=== PATIENT | male | born 1950 | race Caucasian/White ===

== ENCOUNTER → 2017-04-26 | Outpatient (CLI) | payer OTHER ==
[~2017-04-26] MED LIST: ACET-1311 PO; CEPH500C2 PO; DOXY1TAB6 PO; FERR1TAB13 PO; FOLI1TAB7 PO; LRS20 PO; MELA1TAB5 PO; MISCCAP80 PO; NUTR-7 PO; PANT40TA PO; TEMA7.5C11 PO; THIA100T11 PO; [UNRECOGNIZED DRUG - CODE] TOP
== END ==
LOC: C.LABUPNIT 11:56
PROVIDERS: ATTEND Nurse Practitioner Family
DX: T87.9 Unspecified complications of amputation stump (principal); Y83.5 Amputation of limb(s) as the cause of abnormal reaction of the patient, or of later complication, without mention of misadventure at the time of the procedure

== ENCOUNTER 2017-04-27 09:49 | Inpatient (IN) | payer OTHER ==
[~2017-04-27] VITALS: Ht 167.6 cm; Wt 73.8 kg
[~2017-04-27 09:49] MED LIST changes: -ACET-1311 PO; -DOXY1TAB6 PO
[2017-04-27] MEDS ORDERED: PIPERACILLIN/TAZOBACTAM 4.5 GM/100ML D5W IV STA (10:45)
[2017-04-27] MEDS ORDERED: VANCOMYCIN 1GM/270ML NSS IV STA (10:45)
[2017-04-27] MEDS ORDERED: ACET-1311 PO (10:52)
[2017-04-27] MEDS ORDERED: DOXY1TAB6 PO (10:52)
[2017-04-27 11:08] LABS: BASO % 1.3 %; BASO ABS # 0.12 K/uL (0-0.2); EOS % 7.2 %; HEMATOCRIT 33.2 % (42-52); IG% 1.7 %; LYMPH % 15.2 %; LYMPH ABS # 1.44 K/uL (1.2-3.4); MEAN CELL VOLUME 85.1 fL (80-100); MEAN CORPUSCULAR HEMOGLOBIN 25.6 pg (25-34); MEAN CORPUSCULAR HGB CONC 30.1 g/dl (32-36); MEAN PLATELET VOLUME 9.7 fL (7.4-10.4); MONO % 9.8 %; NEUT % 64.8 %; PLATELET COUNT 422 K/uL (130-400); WHITE BLOOD COUNT 9.49 K/uL (4.8-10.8)
[2017-04-27 11:21] LABS: ALT/SGPT 18 U/L (12-78); AST/SGOT 12 U/L (15-37); BLOOD UREA NITROGEN 21 mg/dl (7-18); BUN/CREATININE RATIO 33.5 (10-20); CALCIUM 9.4 mg/dl (8.5-10.1); CARBON DIOXIDE 27 mmol/L (21-32); CHLORIDE 104 mmol/L (98-107); CREATININE 0.62 mg/dl (0.60-1.40); GLUCOSE 97 mg/dl (70-99); MAGNESIUM 1.7 mg/dl (1.8-2.4); POTASSIUM 4.1 mmol/L (3.5-5.1); SODIUM 137 mmol/L (136-145)
[2017-04-27 11:24] LABS: ALB/GLOB RATIO 0.4 (0.9-2); ALKALINE PHOSPHATASE 135 U/L (45-117)
--- NOTE | 2017-04-27 11:29 | DIAGNOSTIC IMAGING REPORT ---
SINGLE VIEW CHEST CLINICAL HISTORY: Infection. Clinical concern for pneumonia. FINDINGS: An AP, portable, upright chest radiograph is obtained. No prior studies are available for comparison at the time of dictation. The examination is degraded by portable technique and patient rotation. The heart is top normal for projection and there is atherosclerotic calcification of the thoracic aorta. The pulmonary vasculature is noncongested. Nonspecific interstitial thickening is noted. No airspace consolidation, large pleural effusion, or pneumothorax is seen. The skeletal structures are osteopenic. Advanced arthritic change is noted in the right shoulder. IMPRESSION: No acute cardiopulmonary abnormality. Electronically signed by: Leoncio Woo M.D. 04/27/2017 11:28 AM Dictated Date/Time: 04/27/2017 11:27 AM
--- NOTE | 2017-04-27 11:39 | EMERGENCY ROOM VISIT NOTE ---
History Report prepared by Iona: Sary Mclaughlin Under the Supervision of: Dr. Leoncio Martínez M.D. First contact with patient: 10:37 Chief Complaint: WOUND INFECTION Stated Complaint: LEG PAIN Nursing Triage Summary: Pt brought BLS from [facility], quadriplegic, had Left BKA in 1984. Pt c/o infection to L leg stump, states that it started as a blister in March, worse x 1 week, area is necrotic with yellow drainage. Pt denies fever or chills. Currently on two antibiotics. Pt was treated at [place] for sepsis in March and moved to [facility] this past . Pt also reports open wound to L hip/thigh History of Present Illness The patient is a 66 year old male who presents to the Emergency Room with complaints of a worsening wound infection for the past week. The patient has a history of spina bifida and a left BKA. His amputation was done in 1984. Over a week ago he developed some infection to the stump. He is currently at [facility] for rehabilitation after being in the hospital in [place] for sepsis a few weeks ago. The patient was started on Keflex and doxycycline two days ago for his wound infection. He states that his leg is achy, but denies much pain. He denies any fevers. Source of History: patient Onset: 1 week ago Position: leg (left) Quality: ache Timing: worsening Associated Symptoms: No fevers Review of Systems See HPI for pertinent positives & negatives. A total of 10 systems reviewed and were otherwise negative. Past Medical & Surgical Medical Problems: (1) Spina bifida Surgical Problems: (1) Hx of BKA Family History No pertinent history stated. Social History Smoking Status: Never Smoker Housing Status: halfway Occupation Status: disabled Current/Historical Medications Scheduled Acetic Acid (Acetic Acid 0.25%), 1 APPLN TOP BID Baclofen (Baclofen), 1 TAB PO TID Cephalexin Monohydrate (Keflex), 500 MG PO QID Doxycycline Hyclate (Doxycycline Hyclate), 1 TAB PO BID Ferrous Sulfate (Kp Ferrous Sulfate), 1 TAB PO BID Folic Acid (Folvite), 1 MG PO DAILY Nutritional Supplements (Boost), 1 BOX PO TID Pantoprazole (Protonix), 40 MG PO DAILY Probiotic Product (Probiotic), 1 CAP PO BID Temazepam (Restoril), 7.5 MG PO HS Thiamine Hcl (Vitamin B-1), 0.5 TAB PO DAILY Scheduled PRN Acetaminophen (Tylenol), 650 MG PO for Mild Pain Melatonin (Kp Melatonin), 1 TAB PO HS PRN for Sleep Allergies Coded Allergies: Latex1 -Allergic Contact Dermititis (Unverified Allergy, Unknown, ., 04/27) Physical Exam Vital Signs Date Time Temp Pulse Resp B/P (MAP) Pulse Ox O2 Delivery O2 Flow Rate FiO2 04/27/17 13:09 88 18 122/80 97 Room Air 04/27/17 12:53 99 Room Air 04/27/17 11:30 79 18 112/67 99 Room Air 04/27/17 09:59 36.6 85 20 114/69 Room Air Physical Exam GENERAL: Patient is in no acute distress. HEENT: No acute trauma, normocephalic atraumatic, mucous membranes moist, no nasal congestion, no scleral icterus. NECK: No stridor, no adenopathy, no meningismus, trachea is midline. LUNGS: Clear to auscultation bilaterally, no wheeze, no rhonchi, breath sounds equal. HEART: Without murmurs gallops or rubs, regular rate and rhythm. ABDOMEN: Soft, nontender, bowel sounds positive, no hernias, no peritonitis. Gordon catheter in place. EXTREMITIES: His left leg has been amputated at the mid tib/fib area and the stump appears acutely infected. There is drainage, erythema, warmth, and a few areas of necrosis. NEUROLOGIC: Awake, alert, oriented x 3, quadriplegia noted. SKIN: No rash, no jaundice, no diaphoresis. Medical Decision & Procedures ER Provider Diagnostic Interpretation: Radiology results as stated below per my review and radiologist interpretation: L TIBIA/FIBULA 2 VIEWS ROUTINE CLINICAL HISTORY: poss osteo. Left lower leg swelling. COMPARISON STUDY: None. FINDINGS: The patient is status post below the knee amputation. Mild focal thickening and periosteal reaction at the amputated distal left tibia and fibula. However, no cortical destruction to suggest osteomyelitis at this time. There is diffuse soft tissue swelling. No radiopaque foreign bodies. The bones are osteopenic. No fracture or dislocation within the left knee. Moderate to severe osteoarthritis within the left knee. IMPRESSION: Status post below the knee amputation. No radiographic evidence for osteomyelitis at this time. Diffuse soft tissue swelling. Electronically signed by: Torin Mane M.D. 04/27/2017 11:43 AM Dictated Date/Time: 04/27/2017 11:40 AM SINGLE VIEW CHEST CLINICAL HISTORY: Infection. Clinical concern for pneumonia. FINDINGS: An AP, portable, upright chest radiograph is obtained. No prior studies are available for comparison at the time of dictation. The examination is degraded by portable technique and patient rotation. The heart is top normal for projection and there is atherosclerotic calcification of the thoracic aorta. The pulmonary vasculature is noncongested. Nonspecific interstitial thickening is noted. No airspace consolidation, large pleural effusion, or pneumothorax is seen. The skeletal structures are osteopenic. Advanced arthritic change is noted in the right shoulder. IMPRESSION: No acute cardiopulmonary abnormality. Electronically signed by: Leoncio Woo M.D. 04/27/2017 11:28 AM Dictated Date/Time: 04/27/2017 11:27 AM Laboratory Results 04/27/17 10:40 Red Blood Count 3.90, Mean Corpuscular Volume 85.1, Mean Corpuscular Hemoglobin 25.6, Mean Corpuscular Hemoglobin Concent 30.1, Mean Platelet Volume 9.7, Neutrophils (%) (Auto) 64.8, Lymphocytes (%) (Auto) 15.2, Monocytes (%) (Auto) 9.8, Eosinophils (%) (Auto) 7.2, Basophils (%) (Auto) 1.3, Neutrophils # (Auto) 6.16, Lymphocytes # (Auto) 1.44, Monocytes # (Auto) 0.93, Eosinophils # (Auto) 0.68, Basophils # (Auto) 0.12 04/27/17 10:40 Test 04/27/17 10:40 04/27/17 11:18 04/27/17 11:50 White Blood Count 9.49 K/uL (4.8-10.8) Red Blood Count 3.90 M/uL (4.7-6.1) Hemoglobin 10.0 g/dL (14.0-18.0) Hematocrit 33.2 % (42-52) Mean Corpuscular Volume 85.1 fL (80-100) Mean Corpuscular Hemoglobin 25.6 pg (25-34) Mean Corpuscular Hemoglobin Concent 30.1 g/dl (32-36) Platelet Count 422 K/uL (130-400) Mean Platelet Volume 9.7 fL (7.4-10.4) Neutrophils (%) (Auto) 64.8 % Lymphocytes (%) (Auto) 15.2 % Monocytes (%) (Auto) 9.8 % Eosinophils (%) (Auto) 7.2 % Basophils (%) (Auto) 1.3 % Neutrophils # (Auto) 6.16 K/uL (1.4-6.5) Lymphocytes # (Auto) 1.44 K/uL (1.2-3.4) Monocytes # (Auto) 0.93 K/uL (0.11-0.59) Eosinophils # (Auto) 0.68 K/uL (0-0.5) Basophils # (Auto) 0.12 K/uL (0-0.2) RDW Standard Deviation 61.6 fL (36.4-46.3) RDW Coefficient of Variation 20.8 % (11.5-14.5) Immature Granulocyte % (Auto) 1.7 % Immature Granulocyte # (Auto) 0.16 K/uL (0.00-0.02) Hypersegmented Polys 1+ Anisocytosis PRESENT Anion Gap 6.0 mmol/L (3-11) Estimated GFR () 119.8 Estimated GFR (Non- 103.4 BUN/Creatinine Ratio 33.5 (10-20) Calcium Level 9.4 mg/dl (8.5-10.1) Magnesium Level 1.7 mg/dl (1.8-2.4) Total Bilirubin 0.2 mg/dl (0.2-1) Aspartate Amino Transf (AST/SGOT) 12 U/L (15-37) Alanine Aminotransferase (ALT/SGPT) 18 U/L (12-78) Alkaline Phosphatase 135 U/L (45-117) Total Protein 9.1 gm/dl (6.4-8.2) Albumin 2.4 gm/dl (3.4-5.0) Globulin 6.7 gm/dl (2.5-4.0) Albumin/Globulin Ratio 0.4 (0.9-2) Lactic Acid Level 1.4 mmol/L (0.4-2.0) Urine Color YELLOW Urine Appearance CLOUDY (CLEAR) Urine pH 6.0 (4.5-7.5) Urine Specific Mcd[place]al 1.025 (1.000-1.030) Urine Protein 1+ (NEG) Urine Glucose (UA) NEG (NEG) Urine Ketones NEG (NEG) Urine Occult Blood 1+ (NEG) Urine Nitrite POS (NEG) Urine Bilirubin NEG (NEG) Urine Urobilinogen NEG (NEG) Urine Leukocyte Esterase LARGE (NEG) Urine WBC (Auto) >30 /hpf (0-5) Urine RBC (Auto) 5-10 /hpf (0-4) Urine Hyaline Casts (Auto) 1-5 /lpf (0-5) Urine Epithelial Cells (Auto) 10-20 /lpf (0-5) Urine Bacteria (Auto) 1+ (NEG) Laboratory results reviewed by me. Medications Administered Medications (Trade) Dose Ordered Sig/Stephen Route Start Time Stop Time Status Last Admin Dose Admin Piperacillin Sod/ Tazobactam Sod (Zosyn Iv) 4.5 gm NOW STAT IV 04/27/17 10:45 04/27/17 10:49 DC 04/27/17 11:26 4.5 GM Vancomycin HCl (Vancomycin 1gm/ 270ml Nss) 1 gm NOW STAT IV 04/27/17 10:45 04/27/17 10:49 DC 04/27/17 12:13 1 GM ED Course 1037: The patient was evaluated in room B11B. A complete history and physical exam was performed. 1045: Vancomycin HCl 1 gm IV, Zosyn 4.5 gm IV 1200: I reassessed the patient at this time. He is feeling better and resting comfortably. I discussed the results and treatment plan with the patient. I answered all pertaining questions that he had. He expressed understanding and verbalized agreement. 1211: I spoke with Dr. Gaytan. We discussed the patients case. The patient will be evaluated by the [facility] for further management. Medical Decision Differential diagnoses includes osteomyelitis, cellulitis, failed outpatient treatment, sepsis, bacteremia, dehydration, UTI. There is no leukocytosis. A mild anemia was noted. Magnesium somewhat low, no renal failure, no hepatitis. Urinalysis does suggest infection versus contamination from his Gordon catheter. A urine culture is pending. Blood cultures are pending. A culture of the drainage from the left leg cellulitis is pending. Left tib-fib films do not show evidence for osteomyelitis. Lactic acid level was not elevated making severe sepsis less likely. The patient received IV vancomycin and IV Zosyn. Given the worsening of his cellulitis despite oral antibiotics, given his quadriplegia, I do think a hospital stay is warranted. I spoke to the patient and case management. The on -call hospitalist was consulted. Medication Reconcilliation Current Medication List: was personally reviewed by me Blood Pressure Screening Patient's blood pressure: Normal blood pressure Consults Time Called: 1202 Consulting Physician: Dr. Gaytan Returned Call: [address] Gaytan. We discussed the patients case. The patient will be evaluated by the [facility] for further management. Impression Primary Impression: Left leg cellulitis Additional Impression: Failure of outpatient treatment Scribe Attestation The scribe's documentation has been prepared under my direction and personally reviewed by me in its entirety. I confirm that the note above accurately reflects all work, treatment, procedures, and medical decision making performed by me. Departure Information Dispostion Being Evaluated By Hospitalist Referrals Rai López (PCP) Patient Instructions My [facility] Problem Qualifiers
--- NOTE | 2017-04-27 11:44 | DIAGNOSTIC IMAGING REPORT ---
L TIBIA/FIBULA 2 VIEWS ROUTINE CLINICAL HISTORY: poss osteo. Left lower leg swelling. COMPARISON STUDY: None. FINDINGS: The patient is status post below the knee amputation. Mild focal thickening and periosteal reaction at the amputated distal left tibia and fibula. However, no cortical destruction to suggest osteomyelitis at this time. There is diffuse soft tissue swelling. No radiopaque foreign bodies. The bones are osteopenic. No fracture or dislocation within the left knee. Moderate to severe osteoarthritis within the left knee. IMPRESSION: Status post below the knee amputation. No radiographic evidence for osteomyelitis at this time. Diffuse soft tissue swelling. Electronically signed by: Torin Mane M.D. 04/27/2017 11:43 AM Dictated Date/Time: 04/27/2017 11:40 AM
[2017-04-27 11:48] LABS: ANISOCYTOSIS PRESENT; COMPLETE YES; HYPERSEGMENTED POLYS 1+
[2017-04-27 12:12] LABS: URINE APPEARANCE CLOUDY (CLEAR); URINE BILIRUBIN NEG (NEG); URINE COLOR YELLOW; URINE NITRITE POS (NEG); URINE SPECIFIC GRAVITY 1.025 (1.000-1.030); UROBILINOGEN NEG (NEG)
[2017-04-27 12:13] LABS: MANUAL MICROSCOPIC REQUIRED? NO; REVIEW REQ? NO
--- NOTE | 2017-04-27 12:43 | History and Physical ---
History & Physical Date & Time of Service: Apr 27, 2017 at 12:43 Chief Complaint: Leg Pain Primary Care Physician: No Doctor, Assigned History of Present Illness Source: patient, hospital records The patient is a 66-year-old male with history of spina bifida and left BKA performed in 1984, who developed skin breakdown while at [facility], for which he was placed on Keflex and doxycycline, and due to worsening presents emergency department for assessment. He denies any recent trauma. He has recently been in the [facility] [place] for 2 weeks to do urosepsis, and was then transferred to [facility] for rehabilitation. Past Medical/Surgical History Medical Problems: (1) Spina bifida Status: Chronic Surgical Problems: (1) Hx of BKA Status: Chronic Family History Noncontributory Social History Smoking Status: Never Smoker Smokeless Tobacco Use: No Alcohol Use: none Drug Use: none Occupational Status: disabled Immunizations History of Influenza Vaccine: Unknown History of Tetanus Vaccine?: Unknown History of Pneumococcal: Unknown History of Hepatitis B Vaccine: Unknown Multi-Drug Resistant Organisms History of MDRO: No Allergies Coded Allergies: Latex1 -Allergic Contact Dermititis (Unverified Allergy, Unknown, ., 04/27) Home Medications Scheduled Acetic Acid (Acetic Acid 0.25%), 1 APPLN TOP BID Baclofen (Baclofen), 1 TAB PO TID Cephalexin Monohydrate (Keflex), 500 MG PO QID Doxycycline Hyclate (Doxycycline Hyclate), 1 TAB PO BID Ferrous Sulfate (Kp Ferrous Sulfate), 1 TAB PO BID Folic Acid (Folvite), 1 MG PO DAILY Nutritional Supplements (Boost), 1 BOX PO TID Pantoprazole (Protonix), 40 MG PO DAILY Probiotic Product (Probiotic), 1 CAP PO BID Temazepam (Restoril), 7.5 MG PO HS Thiamine Hcl (Vitamin B-1), 0.5 TAB PO DAILY Scheduled PRN Acetaminophen (Tylenol), 650 MG PO for Mild Pain Melatonin (Kp Melatonin), 1 TAB PO HS PRN for Sleep Review of Systems The patient denies chest pain, palpitations, shortness of breath, cough, vision change, hearing change, sore throat, fevers, chills, sweats, weight change, fatigue, nausea, vomiting, diarrhea or constipation, abdominal pain, pelvic pain, blood in urine or stool, dysuria, urinary frequency or urgency, lightheadedness , dizziness, headache, memory loss, rash, abnormal bruising or bleeding, imbalance, focal or generalized weakness, numbness or tingling in arms or legs, generalized arthralgias or myalgias, back or neck pain, or night sweats. The review of systems is otherwise negative other than for that already noted above, and at least 10 systems have been reviewed. Physical Exam Vital Signs Date Time Temp Pulse Resp B/P (MAP) Pulse Ox O2 Delivery O2 Flow Rate FiO2 04/27/17 11:30 79 18 112/67 99 Room Air 04/27/17 09:59 36.6 85 20 114/69 Room Air The patient is awake, well-developed and adequately nourished, alert and oriented 3, normocephalic and atraumatic, lying in bed and in no acute distress. HEENT--PERRL, EOMI, mucous membranes and oropharynx normal. Neck--supple, no JVD or bruits, thyroid normal, trachea midline, no adenopathy. Heart--normal S1 and S2, no extra beats, no murmurs, rubs or gallops. Lungs--clear bilaterally with good air movement, no respiratory distress, no accessory muscle use. Abdomen--normal bowel sounds and soft, nontender and nondistended, no hernias or masses, no organomegaly. Extremities--no cyanosis, clubbing or edema. Left BKA Dermatologic--left BKA stump with peripheral scabbing, with several open draining wounds. Neurologic--cranial nerves II through XII grossly intact, motor and sensory examination normal. Rheumatologic--normal range of motion, nontender, muscles and joints. Psychiatric--normal affect. Diagnostics Laboratory Results Results Past 24 Hours Test 04/27/17 10:40 04/27/17 11:18 04/27/17 11:50 Range/Units White Blood Count 9.49 4.8-10.8 K/uL Red Blood Count 3.90 4.7-6.1 M/uL Hemoglobin 10.0 14.0-18.0 g/dL Hematocrit 33.2 42-52 % Mean Corpuscular Volume 85.1 80-100 fL Mean Corpuscular Hemoglobin 25.6 25-34 pg Mean Corpuscular Hemoglobin Concent 30.1 32-36 g/dl Platelet Count 422 130-400 K/uL Mean Platelet Volume 9.7 7.4-10.4 fL Neutrophils (%) (Auto) 64.8 % Lymphocytes (%) (Auto) 15.2 % Monocytes (%) (Auto) 9.8 % Eosinophils (%) (Auto) 7.2 % Basophils (%) (Auto) 1.3 % Neutrophils # (Auto) 6.16 1.4-6.5 K/uL Lymphocytes # (Auto) 1.44 1.2-3.4 K/uL Monocytes # (Auto) 0.93 0.11-0.59 K/uL Eosinophils # (Auto) 0.68 0-0.5 K/uL Basophils # (Auto) 0.12 0-0.2 K/uL RDW Standard Deviation 61.6 36.4-46.3 fL RDW Coefficient of Variation 20.8 11.5-14.5 % Immature Granulocyte % (Auto) 1.7 % Immature Granulocyte # (Auto) 0.16 0.00-0.02 K/uL Hypersegmented Polys 1+ Anisocytosis PRESENT Sodium Level 137 136-145 mmol/L Potassium Level 4.1 3.5-5.1 mmol/L Chloride Level 104 98-107 mmol/L Carbon Dioxide Level 27 21-32 mmol/L Anion Gap 6.0 3-11 mmol/L Blood Urea Nitrogen 21 7-18 mg/dl Creatinine 0.62 0.60-1.40 mg/dl Estimated GFR () 119.8 Estimated GFR (Non- 103.4 BUN/Creatinine Ratio 33.5 10-20 Random Glucose 97 70-99 mg/dl Calcium Level 9.4 8.5-10.1 mg/dl Magnesium Level 1.7 1.8-2.4 mg/dl Total Bilirubin 0.2 0.2-1 mg/dl Aspartate Amino Transf (AST/SGOT) 12 15-37 U/L Alanine Aminotransferase (ALT/SGPT) 18 12-78 U/L Alkaline Phosphatase 135 45-117 U/L Total Protein 9.1 6.4-8.2 gm/dl Albumin 2.4 3.4-5.0 gm/dl Globulin 6.7 2.5-4.0 gm/dl Albumin/Globulin Ratio 0.4 0.9-2 Lactic Acid Level 1.4 0.4-2.0 mmol/L Urine Color YELLOW Urine Appearance CLOUDY CLEAR Urine pH 6.0 4.5-7.5 Urine Specific Sax[place] 1.025 1.000-1.030 Urine Protein 1+ NEG Urine Glucose (UA) NEG NEG Urine Ketones NEG NEG Urine Occult Blood 1+ NEG Urine Nitrite POS NEG Urine Bilirubin NEG NEG Urine Urobilinogen NEG NEG Urine Leukocyte Esterase LARGE NEG Urine WBC (Auto) >30 0-5 /hpf Urine RBC (Auto) 5-10 0-4 /hpf Urine Hyaline Casts (Auto) 1-5 0-5 /lpf Urine Epithelial Cells (Auto) 10-20 0-5 /lpf Urine Bacteria (Auto) 1+ NEG Microbiology Results 04/27/17 Blood Culture, Received Pending 04/27/17 Blood Culture, Received Pending 04/27/17 Urine Culture, Received Pending 04/27/17 Gram Stain, Received Pending 04/27/17 Wound Culture, Received Pending Diagnostic Radiology Patient Name: ALBINO ROSA Unit Number: [id number] Dictated: 04/27/171139 Transcribed: 04/27/171139 [employer] Printed Date/Time: [~ rep prt dt]/[~ rep prt tm] [~ rep ct labl] - [~ rep ct ivnm] [facility] [place] [address] Dictated: 04/27/171139 Transcribed: 04/27/171139 PA Printed Date/Time: [~ rep prt dt]/[~ rep prt tm] [~ rep ct labl] - [~ rep ct ivnm] L TIBIA/FIBULA 2 VIEWS ROUTINE CLINICAL HISTORY: poss osteo. Left lower leg swelling. COMPARISON STUDY: None. FINDINGS: The patient is status post below the knee amputation. Mild focal thickening and periosteal reaction at the amputated distal left tibia and fibula. However, no cortical destruction to suggest osteomyelitis at this time. There is diffuse soft tissue swelling. No radiopaque foreign bodies. The bones are osteopenic. No fracture or dislocation within the left knee. Moderate to severe osteoarthritis within the left knee. IMPRESSION: Status post below the knee amputation. No radiographic evidence for osteomyelitis at this time. Diffuse soft tissue swelling. Electronically signed by: Torin Mane M.D. 04/27/2017 11:43 AM Dictated Date/Time: 04/27/2017 11:40 AM The status of this report is Signed. Draft = Not yet reviewed or approved by Radiologist. Signed = Reviewed and approved by Radiologist. <AttendingPhy></AttendingPhy> <FamilyPhy>No Doctor, Assigned</FamilyPhy> < PrimaryPhy>No Doctor, Assigned</PrimaryPhy> <UnitNumber>[id number]</UnitNumber> <VisitNumber>[id number]</VisitNumber> <PatientName>ALBINO ROSA</PatientName > <DateOfBirth>1950</DateOfBirth> <Location>[facility]</Location> <ServiceDate> 04/27/17</ServiceDate> <MNE>ESINDI</MNE> <OrderingPhy>Leoncio Martínez M.D.</ OrderingPhy> <OrderingPhyMNE>f rep ord dr cordero</OrderingPhyMNE> <DictatingPhyMNE> f rep dict dr cordero</DictatingPhyMNE> <CCListMNE>f rep ct mne</CCListMNE> < AdmittingPhyMNE>f pt admit dr cordero</AdmittingPhyMNE> <AttendingPhyMNE>f pt attend dr cordero</AttendingPhyMNE> <ConsultingPhyMNE>f pt consult dr cordero</ConsultingPhyMNE> <FamilyPhyMNE>f pt fam dr cordero</FamilyPhyMNE> <OtherPhyMNE>f pt other dr cordero</OtherPhyMNE> < PrimaryPhyMNE>f pt prim care dr cordero</PrimaryPhyMNE> <ReferringPhyMNE>f pt referring dr cordero</ReferringPhyMNE> Patient Name: ALBINO ROSA Unit Number: [id number] Dictated: 04/27/171126 Transcribed: 04/27/171126 EV Printed Date/Time: [~ rep prt dt]/[~ rep prt tm] [~ rep ct labl] - [~ rep ct ivnm] [facility] Radiology Department [place] [id number] Dictated: 04/27/171126 Transcribed: 04/27/171126 EV Printed Date/Time: [~ rep prt dt]/[~ rep prt tm] [~ rep ct labl] - [~ rep ct ivnm] [~ rep ct add3]] SINGLE VIEW CHEST CLINICAL HISTORY: Infection. Clinical concern for pneumonia. FINDINGS: An AP, portable, upright chest radiograph is obtained. No prior studies are available for comparison at the time of dictation. The examination is degraded by portable technique and patient rotation. The heart is top normal for projection and there is atherosclerotic calcification of the thoracic aorta. The pulmonary vasculature is noncongested. Nonspecific interstitial thickening is noted. No airspace consolidation, large pleural effusion, or pneumothorax is seen. The skeletal structures are osteopenic. Advanced arthritic change is noted in the right shoulder. IMPRESSION: No acute cardiopulmonary abnormality. Electronically signed by: Leoncio Woo M.D. 04/27/2017 11:28 AM Dictated Date/Time: 04/27/2017 11:27 AM The status of this report is Signed. Draft = Not yet reviewed or approved by Radiologist. Signed = Reviewed and approved by Radiologist. <AttendingPhy></AttendingPhy> <FamilyPhy>No Doctor, Assigned</FamilyPhy> < PrimaryPhy>No Doctor, Assigned</PrimaryPhy> <UnitNumber>[id number]</UnitNumber> <VisitNumber>[id number]</VisitNumber> <PatientName>MOEALBINO</PatientName > <DateOfBirth>1950</DateOfBirth> <Location>C.ED[facility]</Location> <ServiceDate> 04/27/17</ServiceDate> <MNE>ESINDI</MNE> <OrderingPhy>Leoncio Martínez M.D.</ OrderingPhy> <OrderingPhyMNE>f rep ord dr cordero</OrderingPhyMNE> <DictatingPhyMNE> f rep dict dr cordero</DictatingPhyMNE> <CCListMNE>f rep ct mateoe</CCListMNE> < AdmittingPhyMNE>f pt admit dr cordero</AdmittingPhyMNE> <AttendingPhyMNE>f pt attend dr cordero</AttendingPhyMNE> <ConsultingPhyMNE>f pt consult dr cordero</ConsultingPhyMNE> <FamilyPhyMNE>f pt fam dr cordero</FamilyPhyMNE> <OtherPhyMNE>f pt other dr cordero</OtherPhyMNE> < PrimaryPhyMNE>f pt prim care dr cordero</PrimaryPhyMNE> <ReferringPhyMNE>f pt referring dr cordero</ReferringPhyMNE> Impression Assessment and Plan Left BKA/lower extremity cellulitis with open wounds-- Admitted to the medical surgical floor. Vancomycin IV and Zosyn IV. Of note, UTI on April 02 had Escherichia coli resistant to ampicillin and quinolones, and group B strep pansensitive. UTI on March 22 had group B streptococcus pansensitive. Order three-phase limited bone scan to assess for possible osteomyelitis. Spina bifida-- Continue baclofen one by mouth 3 times a day. GERD-- Continue pantoprazole 40 mg by mouth daily. Insomnia-- Continue Restoril 7.5 mg by mouth at bedtime. Nutraceuticals continue ferrous sulfate, folic acid, boost, probiotics and vitamin B1. Level of Care Med/Surg Advanced Directives Existing Advance Directive: No Existing Living Will: No Existing Power of Inter Com Installer: No Resuscitation Status FULL RESUSCITATION VTE Prophylaxis VTE Risk Assessment Done? Y/N: Yes Risk Level: Moderate
[2017-04-27] MEDS ORDERED: ONDANSETRON INJ 2 MG/ML 2 ML VIAL IV PRN (12:45)
[2017-04-27] MEDS ORDERED: VANCOMYCIN INJ 1,000 MG in SODIUM CHLORIDE 0.9% 250ML 250 ML IV STA (12:45)
[2017-04-27] MEDS ORDERED: ACETAMINOPHEN IV 100 ML IV PRN (12:45)
[2017-04-27 12:53] VITALS: O2SAT 99; Ht 167.6 cm; Wt 73.8 kg
[2017-04-27] MEDS ORDERED: NON-FORMULARY MEDICATION (Melatonin (Kp Melatonin) 1 TAB) PO PRN (13:00)
[2017-04-27] MEDS ORDERED: ACETAMINOPHEN 325 MG TAB PO PRN (13:00)
[2017-04-27 13:45] VITALS: BP 126/77; PULSE 82; TEMP 36.5; O2SAT 97
[2017-04-27] MEDS ORDERED: VANCOMYCIN CONSULT ACTIVE PRN (14:00)
[2017-04-27] MEDS ORDERED: BOOST VANILLA PO SCH ×2 (14:00)
[2017-04-27] MEDS ORDERED: PIPERACILL/TAZOBAC CONSULT ACTIVE PRN (14:00)
[2017-04-27] MEDS ORDERED: PIPERACILL/TAZOBAC IV 3.375 GM in DEXTROSE 5% 100ML 100 ML IV SCH (14:00)
--- NOTE | 2017-04-27 15:11 | Pharmacy Progress Note ---
Pharmacy Abx Dose Short Note Date of Service Apr 27, 2017. Assessment & Plan Pt is a 66yo presents from [facility] with cellulitis. 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 He had a hospital admission in [place], roughly two weeks ago. There he was treated for a UTI (that grew E.Coli resistant to Amp & Quinolones) . Unsure if renal fxn is at baseline; nonetheless, Pt population p'kinetics: T1/ 2=6.7hrs, ke=.103, Vd=0.7. Wound Cx, BCx2, UC all drawn and pending. UA looks dirty with positive nitrites (possibly indicative of gram(-) pathogens). Pt also has a h/o Spina bifida and BKA. Vanco: * Vanco 1000mg (13.5mg/kg) x1 given in ED * Will initiate Vanco 1250mg (~17mg/kg) q8 at 1800, will start maintenance dose earlier than usual do to small loading dose given * Vanco trough ordered for 04/29/17 @0130 prior to the 5th maintenance dose. * Goal trough until c/s's result: 15-20mcg/mL Zosyn: * Received Zosyn 4.5g x1 30 min infsn * Set to receive EI Zosyn 3.375g q8 at 1600, appropriate for eCrCl>20cc/min and clinical status Pharmacy will continue to follow and will adjust dose/frequency as necessary. Thank you.
[2017-04-27] MEDS: PIPERACILL/TAZOBAC IV 3.375 GM in DEXTROSE 5% 100ML IV SCH (16:15)
[2017-04-27] MEDS: BACLOFEN TAB 20 MG TAB PO SCH ×2 (16:16→20:48)
[2017-04-27] MEDS: LACTOBACILLUS ACIDOPHILUS (FLORANEX) TAB PO SCH (16:18)
[2017-04-27] MEDS: FERROUS SULFATE 325 MG TAB PO SCH (16:20)
[2017-04-27] MEDS: BOOST VANILLA PO SCH ×2 (17:00)
[2017-04-27] MEDS: VANCOMYCIN INJ 1,250 MG in SODIUM CHLORIDE 0.9% 250ML 250 ML IV SCH (17:54)
[2017-04-27] MEDS: TEMAZEPAM 7.5 MG CAP PO SCH (20:53)
[2017-04-28] MEDS: PIPERACILL/TAZOBAC IV 3.375 GM in DEXTROSE 5% 100ML IV SCH ×3 (00:04→15:15)
[2017-04-28 00:19] VITALS: BP 110/66; PULSE 59; TEMP 37; O2SAT 99
[2017-04-28] MEDS: VANCOMYCIN INJ 1,250 MG in SODIUM CHLORIDE 0.9% 250ML 250 ML IV SCH ×3 (02:32→17:39)
[2017-04-28 07:24] LABS: BASO % 1.1 %; BASO ABS # 0.11 K/uL (0-0.2); EOS % 8.3 %; HEMATOCRIT 30.4 % (42-52); IG% 1.8 %; LYMPH % 13.6 %; LYMPH ABS # 1.41 K/uL (1.2-3.4); MEAN CORPUSCULAR HEMOGLOBIN 26.2 pg (25-34); MEAN CORPUSCULAR HGB CONC 31.3 g/dl (32-36); MEAN PLATELET VOLUME 9.5 fL (7.4-10.4); MONO % 10.6 %; NEUT % 64.6 %; PLATELET COUNT 381 K/uL (130-400); RED BLOOD COUNT 3.62 M/uL (4.7-6.1); WHITE BLOOD COUNT 10.34 K/uL (4.8-10.8)
[2017-04-28 07:55] LABS: BUN/CREATININE RATIO 25.5 (10-20); CALCIUM 9.8 mg/dl (8.5-10.1); CREATININE 0.78 mg/dl (0.60-1.40); MAGNESIUM 1.8 mg/dl (1.8-2.4); POTASSIUM 3.9 mmol/L (3.5-5.1)
[2017-04-28 07:59] VITALS: O2SAT 99
[2017-04-28] MEDS: BOOST VANILLA PO SCH ×6 (08:00→15:15)
[2017-04-28 08:01] VITALS: BP 119/79; PULSE 75; TEMP 36.5; O2SAT 98
[2017-04-28 08:04] LABS: ANISOCYTOSIS PRESENT; COMPLETE YES; HYPOCHROMIA PRESENT
[2017-04-28] MEDS: PANTOprazole SOD 40 MG TAB PO SCH (08:56)
--- NOTE | 2017-04-28 09:02 | DIAGNOSTIC IMAGING REPORT ---
ADDENDUM Delayed sequence of the right lower extremity was submitted. No abnormal radiotracer uptake seen at the distal stump of the tibia to suggest osteomyelitis. Mild radiotracer uptake at the knee may be due to degenerative change. Electronically signed by: Torin Mane M.D. 04/28/2017 2:46 PM Dictated Date/Time: 04/28/2017 2:45 PM ORIGINAL REPORT BONE SCAN 3 PHASE LIMITED HISTORY: LEFT BKA LOWER EXTREMITY INFECTION TECHNIQUE: Immediately following the intravenous administration of 25.8 mCi of technetium 99 M MDP, the blood flow and blood pole sequences were obtained. The study was canceled by the ordering physician following the initial sequences. Therefore, the 3 hour delayed bone phase was not obtained. COMPARISON STUDY: Left tibia/fibula 04/27/2017. FINDINGS: Diffuse soft tissue uptake within the left distal lower extremity at the stump on both the blood flow and blood pool sequences. Evaluation for osteomyelitis is nondiagnostic due to the lack of a delayed bone phase. IMPRESSION: Diffuse soft tissue uptake within the left distal lower extremity at the stump on both the blood flow and blood pool sequences consistent with soft tissue infection/cellulitis. Evaluation for osteomyelitis is nondiagnostic due to the lack of a delayed bone phase. Electronically signed by: Torin Mane M.D. 04/28/2017 9:01 AM Dictated Date/Time: 04/28/2017 8:56 AM
[2017-04-28] MEDS: FERROUS SULFATE 325 MG TAB PO SCH ×2 (09:03→15:15)
[2017-04-28] MEDS: LACTOBACILLUS ACIDOPHILUS (FLORANEX) TAB PO SCH ×3 (09:05→15:16)
[2017-04-28] MEDS: BACLOFEN TAB 20 MG TAB PO SCH ×3 (09:07→20:36)
[2017-04-28] MEDS: THIAMINE HCL 50 MG TAB PO SCH (09:08)
--- NOTE | 2017-04-28 09:52 | Clinical Documentation Query ---
CLINICAL DOCUMENTATION QUERY Query #1/2 66-y/o male who presents with open wounds with infection to left BKA site. Per WOCN the open wound are described as full thickness [id number] that are edematous and erythematous with drainage that are not related to pressure. In your clinical opinion is this patient being managed for: (x ) Necrotizing fasciitis ( ) Not Agree ( ) Other explanation of clinical findings (Please Explain) ( ) Unable to determine (Please Define) ( ) Need to Discuss The medical record reflects the following clinical findings, treatment, and risk factors. Clinical Indicators: As above. Treatment: WOCN consult, IV Vancomycin, IV Zosyn, Risk Factors: Age, wound resistant to healing, hx of failed treatment on a multitude of IV antibiotics. Query #2/2 The H&P only notes skin breakdown and not location and etiology of patient's other skin issues not related to left BKA site. In your clinical opinion is this patient being managed for: ( x ) Deep tissue injury to left posterior thigh POA (x ) Fungal infection to right buttocks and bilateral thighs POA ( ) Not Agree ( ) Other explanation of clinical findings (Please Explain) ( ) Unable to determine (Please Define) ( ) Need to Discuss The medical record reflects the following clinical findings, treatment, and risk factors. Clinical Indicators: WOCN assessment: Wound Assessment Label Left Amputation Site Present on Admission Yes Stage Full Thickness no Structu Length 13.0 cm Width 19.0 cm Depth 0.2 cm % Eschar (Black) 51-75% % Slough (Yellow) 1-25% Michelle-impairment Edematous Erythema Dressing Status Applied Dressing Type Non-Adhesive Foam Hydrofiber With Silver Drainage Amount +1 - Scant= 10% Saturated Drainage Odor +1 - Mild Irrigant Solution Type Saline (NSS) Wound Assessment Label Left Posterior THIGH Present on Admission Yes Stage Deep Tissue Injury Length 3.0 cm Dressing Status Applied Dressing Type Non-Adhesive Foam Wound Assessment Label Left Right buttocks and thighs Present on Admission Yes Wound Type Fungal Length 38.0 cm Width 18.0 cm Eschar None % Eschar (Black) None % Slough (Yellow) None % Granulated (Red) 26-50% Structure Exposed None Wound Base Color Red Michelle-impairment Normal Skin Impairment Description scrotun, rectumm , buttock cleft has scattered superficial open areas Dressing Status Applied Treatment Plan antifungal barrier cream Frequency of Dressing Change Daily Offloading Waffleboots Consults/Notifications Comment requested surgical consult Patient Tolerated Procedure Well Yes Bed Documentation AccuMax Galen/[facility] Treatment: WOCN consult, IV Vancomycin, IV Zosyn, q2hr repositioning, [place] bed, Prn dressing changes, decubiti precautions, Gordon cather Risk Factors: Age, inability to ambulate or reposition on own, self-care is limited. Please clarify and document your clinical opinion in the progress notes and discharge summary. Terms such as "probable", "suspected", "likely", "questionable", "possible", or "still to be ruled out" are acceptable. IF IN AGREEMENT, YOU MUST DOCUMENT ABOVE DIAGNOSTIC STATEMENT IN DAILY PROGRESS NOTES AND DISCHARGE SUMMARY. This document is not part of the patient's record. Thank You, Eliud Crabtree RN [phone]
[2017-04-28 11:09] VITALS: BP 120/62; PULSE 74; TEMP 36.5; O2SAT 98
--- NOTE | 2017-04-28 11:29 | Hospitalist Progress Note ---
Hospitalist Progress Note Date of Service Apr 28, 2017. (Kalpana Patel CRNP) Subjective Pt evaluation today including: conversation w/ patient, physical exam, chart review, lab review, review of inpatient medication list Voiding: washburn catheter in place Constitutional: No fever, No chills Respiratory: No shortness of breath Cardiovascular: No chest pain Abdomen: No pain, No nausea, No vomiting, No diarrhea All Other Systems: Reviewed and Negative (Kalpana Patel CRNP) Medications Medications (Trade) Dose Ordered Sig/Stephen Route Start Time Stop Time Status Last Admin Dose Admin Baclofen (Lioresal Tab) 20 mg TID PO 04/27/17 14:00 05/27/17 13:59 04/28/17 09:07 20 MG Folic Acid (Folvite Tab) 1 mg DAILY PO 04/28/17 08:00 05/28/17 08:59 04/28/17 09:06 1 MG Enteral Nutritional Formula (Boost) 1 can TID PO 04/27/17 14:00 04/27/17 16:51 DC 04/27/17 16:16 1 CAN Pantoprazole Sodium (Protonix Tab) 40 mg DAILY PO 04/28/17 08:00 05/28/17 08:59 04/28/17 08:56 40 MG Temazepam (Restoril Cap) 7.5 mg HS PO 04/27/17 21:00 05/27/17 20:59 04/27/17 20:53 7.5 MG Thiamine HCl (Vitamin B-1 Tab) 50 mg DAILY PO 04/28/17 08:00 05/28/17 08:59 04/28/17 09:08 50 MG Ferrous Sulfate (Feosol Tab) 325 mg BIDM PO 04/27/17 17:00 05/27/17 17:59 04/28/17 09:03 325 MG Lactobacillus Acidophilus (Floranex Tab) 4 tab TIDM PO 04/27/17 17:00 05/27/17 17:59 04/28/17 09:05 4 TAB Piperacillin Sod/ Tazobactam Sod 3.375 gm/Dextrose 115 ml @ 28.75 mls/ hr Q8H IV 04/27/17 16:00 05/07/17 15:59 04/28/17 09:02 28.75 MLS/HR Vancomycin HCl 1250 mg/Sodium Chloride 275 ml @ 125 mls/hr Q8@0200,1000,1800 IV 04/27/17 18:00 05/07/17 17:59 04/28/17 09:33 125 MLS/HR Enteral Nutritional Formula (Boost) 1 can TIDM PO 04/27/17 17:00 05/27/17 16:59 04/28/17 09:56 1 CAN (Kalpana Patel CRNP) Objective Vital Signs Date Time Temp Pulse Resp B/P (MAP) Pulse Ox O2 Delivery O2 Flow Rate FiO2 04/28/17 11:09 36.5 74 16 120/62 (81) 98 04/28/17 08:01 36.5 75 16 119/79 (92) 98 04/28/17 07:59 99 Room Air 04/28/17 00:19 37.0 59 20 110/66 (81) 99 Room Air 04/28/17 00:00 Room Air 04/27/17 16:00 Room Air 04/27/17 13:45 36.5 82 20 126/77 (93) 97 Room Air 04/27/17 13:09 88 18 122/80 97 Room Air 04/27/17 12:53 99 Room Air 04/27/17 11:30 79 18 112/67 99 Room Air (Kalpana Patel CRNP) Physical Exam Notes: General: no distress Eyes: normal inspection, PERLL Respiratory: chest non tender, clear to auscultation, normal breath sounds, no respiratory distress, no accessory muscle use Cardiac: regular rate and rhythm, no rub or gallop, no murmur, no edema, no jvd GI/: active bowel sounds, no abd pain or tenderness, soft, non distended Extremities: normal range of motion, normal strength, non tender Neuro/Psych: alert and oriented x 3, normal mood and affect Skin: normal color, dry, left bka stump erythematous with dusky/dark coloration and yellow drainage. (Kalpana Patel CRNP) Laboratory Results Last 24 Hours Test 04/27/17 11:50 04/28/17 06:42 Urine Color YELLOW Urine Appearance CLOUDY Urine pH 6.0 Urine Specific [place] 1.025 Urine Protein 1+ Urine Glucose (UA) NEG Urine Ketones NEG Urine Occult Blood 1+ Urine Nitrite POS Urine Bilirubin NEG Urine Urobilinogen NEG Urine Leukocyte Esterase LARGE Urine WBC (Auto) >30 /hpf Urine RBC (Auto) 5-10 /hpf Urine Hyaline Casts (Auto) 1-5 /lpf Urine Epithelial Cells (Auto) 10-20 /lpf Urine Bacteria (Auto) 1+ White Blood Count 10.34 K/uL Red Blood Count 3.62 M/uL Hemoglobin 9.5 g/dL Hematocrit 30.4 % Mean Corpuscular Volume 84.0 fL Mean Corpuscular Hemoglobin 26.2 pg Mean Corpuscular Hemoglobin Concent 31.3 g/dl Platelet Count 381 K/uL Mean Platelet Volume 9.5 fL Neutrophils (%) (Auto) 64.6 % Lymphocytes (%) (Auto) 13.6 % Monocytes (%) (Auto) 10.6 % Eosinophils (%) (Auto) 8.3 % Basophils (%) (Auto) 1.1 % Neutrophils # (Auto) 6.67 K/uL Lymphocytes # (Auto) 1.41 K/uL Monocytes # (Auto) 1.10 K/uL Eosinophils # (Auto) 0.86 K/uL Basophils # (Auto) 0.11 K/uL RDW Standard Deviation 62.5 fL RDW Coefficient of Variation 20.7 % Immature Granulocyte % (Auto) 1.8 % Immature Granulocyte # (Auto) 0.19 K/uL Hypochromasia PRESENT Anisocytosis PRESENT Sodium Level 136 mmol/L Potassium Level 3.9 mmol/L Chloride Level 103 mmol/L Carbon Dioxide Level 27 mmol/L Anion Gap 6.0 mmol/L Blood Urea Nitrogen 20 mg/dl Creatinine 0.78 mg/dl Est Creatinine Clear Calc Drug Dose 84.1 ml/min Estimated GFR () 109.0 Estimated GFR (Non- 94.1 BUN/Creatinine Ratio 25.5 Random Glucose 79 mg/dl Calcium Level 9.8 mg/dl Magnesium Level 1.8 mg/dl (Kalpana Patel, JORDY) Assessment and Plan Mr. Ruvalcaba is a 66 y/o man here for Left BKA/lower extremity cellulitis with open wounds. Recent UTI on April 02 had Escherichia coli resistant to ampicillin and quinolones, and group B strep pansensitive. UTI on March 22 had group B streptococcus pansensitive. Left BKA cellulitis -Vancomycin IV and Zosyn IV. - three-phase limited bone scan to assess for possible osteomyelitis - none seen on imaging - Wound care consulted - recommend orthopedics consult Spina bifida-- Continue baclofen one by mouth 3 times a day. GERD-- Continue pantoprazole 40 mg by mouth daily. Insomnia-- Continue Restoril 7.5 mg by mouth at bedtime. Nutraceuticals continue ferrous sulfate, folic acid, boost, probiotics and vitamin B1. Resuscitation status - full code DVT prophylaxis - SCDs (Kalpana Patel ., JORDY) Attending Attestation: Pt seen/examined, chart reviewed, care plan d/w JORDY Patel. I agree w/ the ellis components of her documentation. Pt reports left BKA stump started "looking bad" about 1 week ago. There was the beginnings of skin breakdown when he was in [facility] a few weeks ago but not like it is currently. Follows w/ wound care center in [place]. Uses chronic washburn for neurogenic bladder. Reports had a doppler of left leg at [place] - "I never heard the results." Also reports having had iron infusion in [place] for anemia. VSS no fever gen - NAD heart - irregular lungs - CTA b/l abd - soft NT ND BS+ ext - right leg wnl, no edema, pulses 2+; left leg BKA; popliteal pulse on left 1+ skin - left leg BKA -- distal stump is grossly necrotic, skin is black; there is a serpiginous appearing ulceration that separates the necrotic tissue from healthy tissue/skin; there are at least 3 other ulcerations separate from the necrotic region; all ulcers are grossly weeping with mild odor I did not examine his wounds on the back or buttocks A/P: 1. left BKA stump infection - bone scan negative for osteomyelitis. He certainly will need debridement. I spoke directly with Dr. Grady- his team will consult in AM. Appreciate wound care team recs. Add MVI/Vit C/zinc for wound healing. Boost TID w/ meals. Cont zosyn + vanco. 2. moderate protein calorie malnutrition - boost, MVI, etc. 3. anemia of chronic disease - obtain records from [facility]. 4. complicated/washburn-catheter associated UTI - pseudomonas - continue current abx. 5. DVT proph - add heparin BID. Manoj Ivory MD (Manoj Ivory MD)
[2017-04-28 14:59] VITALS: BP 101/54; PULSE 66; TEMP 36.6; O2SAT 100
[2017-04-28] MEDS ORDERED: BOOST VANILLA PO SCH ×2 (17:30)
[2017-04-28] MEDS: TEMAZEPAM 7.5 MG CAP PO SCH (20:37)
[2017-04-28] MEDS: ZINC SULFATE 220 MG CAP PO SCH (22:10)
[2017-04-28] MEDS: ASCORBIC ACID 500 MG TAB PO SCH (22:10)
[2017-04-28 23:59] VITALS: BP 113/70; PULSE 56; TEMP 36.8; O2SAT 98
[2017-04-29] MEDS: PIPERACILL/TAZOBAC IV 3.375 GM in DEXTROSE 5% 100ML IV SCH ×2 (00:04→09:44)
[2017-04-29] MEDS ORDERED: VANCOMYCIN TROUGH ONE (01:30)
[2017-04-29] MEDS: VANCOMYCIN INJ 1,250 MG in SODIUM CHLORIDE 0.9% 250ML 250 ML IV SCH (02:37)
[2017-04-29 07:18] LABS: BASO % 1.6 %; BASO ABS # 0.14 K/uL (0-0.2); EOS % 6.2 %; HEMATOCRIT 30.5 % (42-52); IG% 1.6 %; LYMPH % 14.5 %; LYMPH ABS # 1.25 K/uL (1.2-3.4); MEAN CORPUSCULAR HEMOGLOBIN 25.6 pg (25-34); MEAN CORPUSCULAR HGB CONC 30.5 g/dl (32-36); MEAN PLATELET VOLUME 9.8 fL (7.4-10.4); MONO % 9.7 %; NEUT % 66.4 %; PLATELET COUNT 340 K/uL (130-400); RED BLOOD COUNT 3.63 M/uL (4.7-6.1); WHITE BLOOD COUNT 8.65 K/uL (4.8-10.8)
[2017-04-29 07:42] LABS: ANISOCYTOSIS PRESENT; COMPLETE YES; HYPERSEGMENTED POLYS 1+; HYPOCHROMIA PRESENT
[2017-04-29 07:55] LABS: BUN/CREATININE RATIO 27.2 (10-20); CALCIUM 9.1 mg/dl (8.5-10.1); CREATININE 0.72 mg/dl (0.60-1.40); MAGNESIUM 1.5 mg/dl (1.8-2.4); POTASSIUM 3.8 mmol/L (3.5-5.1)
--- NOTE | 2017-04-29 08:09 | Hospitalist Progress Note ---
Hospitalist Progress Note Date of Service Apr 29, 2017. Objective Vital Signs Date Time Temp Pulse Resp B/P (MAP) Pulse Ox O2 Delivery O2 Flow Rate FiO2 04/29/17 00:40 Room Air 04/28/17 23:59 36.8 56 18 113/70 (84) 98 Room Air 04/28/17 16:00 Room Air 04/28/17 14:59 36.6 66 18 101/54 (70) 100 Room Air 04/28/17 11:09 36.5 74 16 120/62 (81) 98 Laboratory Results Last 24 Hours Test 04/29/17 01:31 04/29/17 06:45 Vancomycin Level Trough 33.2 mcg/ml White Blood Count 8.65 K/uL Red Blood Count 3.63 M/uL Hemoglobin 9.3 g/dL Hematocrit 30.5 % Mean Corpuscular Volume 84.0 fL Mean Corpuscular Hemoglobin 25.6 pg Mean Corpuscular Hemoglobin Concent 30.5 g/dl Platelet Count 340 K/uL Mean Platelet Volume 9.8 fL Neutrophils (%) (Auto) 66.4 % Lymphocytes (%) (Auto) 14.5 % Monocytes (%) (Auto) 9.7 % Eosinophils (%) (Auto) 6.2 % Basophils (%) (Auto) 1.6 % Neutrophils # (Auto) 5.74 K/uL Lymphocytes # (Auto) 1.25 K/uL Monocytes # (Auto) 0.84 K/uL Eosinophils # (Auto) 0.54 K/uL Basophils # (Auto) 0.14 K/uL RDW Standard Deviation 63.4 fL RDW Coefficient of Variation 20.9 % Immature Granulocyte % (Auto) 1.6 % Immature Granulocyte # (Auto) 0.14 K/uL Hypersegmented Polys 1+ Hypochromasia PRESENT Anisocytosis PRESENT Sodium Level 139 mmol/L Potassium Level 3.8 mmol/L Chloride Level 107 mmol/L Carbon Dioxide Level 24 mmol/L Anion Gap 8.0 mmol/L Blood Urea Nitrogen 20 mg/dl Creatinine 0.72 mg/dl Est Creatinine Clear Calc Drug Dose 91.1 ml/min Estimated GFR () 112.7 Estimated GFR (Non- 97.2 BUN/Creatinine Ratio 27.2 Random Glucose 82 mg/dl Calcium Level 9.1 mg/dl Magnesium Level 1.5 mg/dl Assessment and Plan Mr. Ruvalcaba is a 66 y/o man here for Left BKA/lower extremity cellulitis with open wounds. Recent UTI on April 02 had Escherichia coli resistant to ampicillin and quinolones, and group B strep pansensitive. UTI on March 22 had group B streptococcus pansensitive. Left BKA cellulitis/necrotizing fasciitis, deep tissue injury to left posterior thigh -Vancomycin IV and Zosyn IV. - three-phase limited bone scan to assess for possible osteomyelitis - none seen on imaging - Wound care consulted - recommend orthopedics consult Spina bifida-- Continue baclofen one by mouth 3 times a day. GERD-- Continue pantoprazole 40 mg by mouth daily. Insomnia-- Continue Restoril 7.5 mg by mouth at bedtime. Nutraceuticals continue ferrous sulfate, folic acid, boost, probiotics and vitamin B1. Resuscitation status - full code DVT prophylaxis - SCDs
[2017-04-29 08:10] VITALS: BP 108/67; PULSE 65; TEMP 37; O2SAT 98
[2017-04-29] MEDS: FERROUS SULFATE 325 MG TAB PO SCH ×2 (09:44→16:54)
[2017-04-29] MEDS: CEROVITE ADV FORMULA TAB PO SCH (09:45)
[2017-04-29] MEDS: BACLOFEN TAB 20 MG TAB PO SCH ×3 (09:45→21:57)
[2017-04-29] MEDS: THIAMINE HCL 50 MG TAB PO SCH (09:45)
[2017-04-29] MEDS: LACTOBACILLUS ACIDOPHILUS (FLORANEX) TAB PO SCH ×3 (09:45→16:54)
[2017-04-29] MEDS: PANTOprazole SOD 40 MG TAB PO SCH (09:45)
[2017-04-29] MEDS: ASCORBIC ACID 500 MG TAB PO SCH ×2 (09:46→21:57)
[2017-04-29] MEDS: ZINC SULFATE 220 MG CAP PO SCH (09:46)
[2017-04-29 10:27] LABS: INR 1.1 (0.9-1.1); PROTHROMBIN TIME (PATIENT) 11.6 SECONDS (9.0-12.0)
--- NOTE | 2017-04-29 10:31 | Pharmacy Progress Note ---
Pharmacy Antibiotic Prog Note Date of Service Apr 29, 2017. Subjective The patient is currently receiving vancomycin 1250 mg IV every 8 hours. The patient is currently on day # 3 of vancomycin IV therapy. Objective Height (Feet): 5 Height (Inches): 6.00 Weight (Kilograms): 73.800 Lab Results (24hrs): Test 04/29/17 01:31 04/29/17 06:45 04/29/17 10:01 Vancomycin Level Trough 33.2 mcg/ml (SEE COMMENT) White Blood Count 8.65 K/uL (4.8-10.8) Red Blood Count 3.63 M/uL (4.7-6.1) Hemoglobin 9.3 g/dL (14.0-18.0) Hematocrit 30.5 % (42-52) Mean Corpuscular Volume 84.0 fL (80-100) Mean Corpuscular Hemoglobin 25.6 pg (25-34) Mean Corpuscular Hemoglobin Concent 30.5 g/dl (32-36) Platelet Count 340 K/uL (130-400) Mean Platelet Volume 9.8 fL (7.4-10.4) Neutrophils (%) (Auto) 66.4 % Lymphocytes (%) (Auto) 14.5 % Monocytes (%) (Auto) 9.7 % Eosinophils (%) (Auto) 6.2 % Basophils (%) (Auto) 1.6 % Neutrophils # (Auto) 5.74 K/uL (1.4-6.5) Lymphocytes # (Auto) 1.25 K/uL (1.2-3.4) Monocytes # (Auto) 0.84 K/uL (0.11-0.59) Eosinophils # (Auto) 0.54 K/uL (0-0.5) Basophils # (Auto) 0.14 K/uL (0-0.2) RDW Standard Deviation 63.4 fL (36.4-46.3) RDW Coefficient of Variation 20.9 % (11.5-14.5) Immature Granulocyte % (Auto) 1.6 % Immature Granulocyte # (Auto) 0.14 K/uL (0.00-0.02) Hypersegmented Polys 1+ Hypochromasia PRESENT Anisocytosis PRESENT Sodium Level 139 mmol/L (136-145) Potassium Level 3.8 mmol/L (3.5-5.1) Chloride Level 107 mmol/L (98-107) Carbon Dioxide Level 24 mmol/L (21-32) Anion Gap 8.0 mmol/L (3-11) Blood Urea Nitrogen 20 mg/dl (7-18) Creatinine 0.72 mg/dl (0.60-1.40) Est Creatinine Clear Calc Drug Dose 91.1 ml/min Estimated GFR () 112.7 Estimated GFR (Non- 97.2 BUN/Creatinine Ratio 27.2 (10-20) Random Glucose 82 mg/dl (70-99) Calcium Level 9.1 mg/dl (8.5-10.1) Magnesium Level 1.5 mg/dl (1.8-2.4) Assessment & Plan Assessment * 66 yo M with cellulitis/necrotizing fasciitis of LLE w skin breakdown. * Failed cephalexin/doxycycline as outpatient * Imaging to evaluate for osteomyelitis is nondiagnostic due to lack of a delayed bone phase (per radiologist report) * Pseudomonas (resistant to imipenem only) isolated in wound culture * On Zosyn, vancomycin which is appropriate for now * Renal function stable (based on SCr), however estimation of CrCL based on SCr may be error-prone 2nd spina bifida * Goal vancomycin trough 15-20 mcg/mL * Trough of 33.2 mcg/mL is significantly supratherapeutic. This is either due to aggressive initial dosing or due to patient deviating from population-based pharmacokinetic estimations (which is possible as the patient's baseline SCr may be affected by spina bifida) or a combination thereof * Difficult to estimate trend in vancomycin level. Will therefore discontinue ongoing vancomycin for now and order a random level for this evening. * If estimation of CrCL (based on SCr) is *not* affected by spina bifida, this will be drawn when level should be therapeutic * If estimation of CrCL (based on SCr) *is* affected by spina bifida, the level will be supratherapeutic Plan * Discontinue scheduled vancomycin for now * Random level today (04/29) @ 1800 Pharmacy will continue to follow and will adjust dose/frequency as necessary. Thank you
--- NOTE | 2017-04-29 11:01 | Hospitalist Progress Note ---
Hospitalist Progress Note Date of Service Apr 29, 2017. (Kalpana Patel CRNP) Subjective Pt evaluation today including: conversation w/ patient, physical exam, lab review, review of studies, review of inpatient medication list Voiding: washburn catheter in place Mr. Ruvalcaba is comfortable but feels week and feels aching in his leg stump. He otherwise has no complaints Constitutional: No fever, No chills Respiratory: No shortness of breath Cardiovascular: No chest pain Abdomen: No pain, No nausea, No vomiting, No diarrhea, No constipation Male : No dysuria All Other Systems: Reviewed and Negative (Kalpana Patel CRNP) Medications Medications (Trade) Dose Ordered Sig/Stephen Route Start Time Stop Time Status Last Admin Dose Admin Multivitamins/ Minerals (Multivitamin W/ Minerals Tab) 1 tab QAM PO 04/29/17 08:00 05/29/17 07:59 04/29/17 09:45 1 TAB Ascorbic Acid (Vitamin C Tab) 500 mg BID PO 04/28/17 20:00 05/28/17 19:59 04/29/17 09:46 500 MG Zinc Sulfate (Zinc Sulfate Cap) 220 mg QAM PO 04/28/17 17:30 05/12/17 17:29 04/29/17 09:46 220 MG (Kalpana Patel CRNP) Objective Vital Signs Date Time Temp Pulse Resp B/P (MAP) Pulse Ox O2 Delivery O2 Flow Rate FiO2 04/29/17 08:10 37.0 65 18 108/67 (81) 98 Room Air 04/29/17 00:40 Room Air 04/28/17 23:59 36.8 56 18 113/70 (84) 98 Room Air 04/28/17 16:00 Room Air 04/28/17 14:59 36.6 66 18 101/54 (70) 100 Room Air 04/28/17 11:09 36.5 74 16 120/62 (81) 98 (Kalpana Patel CRNP) Physical Exam Notes: General: no distress Eyes: normal inspection, PERLL Respiratory: chest non tender, clear to auscultation, normal breath sounds, no respiratory distress, no accessory muscle use Cardiac: regular rate and rhythm, no rub or gallop, no murmur, no edema, no jvd GI/: active bowel sounds, no abd pain or tenderness, soft, non distended Extremities: normal range of motion, generalized weakness, can feel or move lower extremities, non tender, left leg stump with dusky, necrotic tissue with yellow drainage and surrounding erythema Neuro/Psych: alert and oriented x 3, normal mood and affect Skin: normal color, dry (Kalpana Patel CRNP) Laboratory Results Last 24 Hours Test 04/29/17 01:31 04/29/17 06:45 04/29/17 10:01 Vancomycin Level Trough 33.2 mcg/ml White Blood Count 8.65 K/uL Red Blood Count 3.63 M/uL Hemoglobin 9.3 g/dL Hematocrit 30.5 % Mean Corpuscular Volume 84.0 fL Mean Corpuscular Hemoglobin 25.6 pg Mean Corpuscular Hemoglobin Concent 30.5 g/dl Platelet Count 340 K/uL Mean Platelet Volume 9.8 fL Neutrophils (%) (Auto) 66.4 % Lymphocytes (%) (Auto) 14.5 % Monocytes (%) (Auto) 9.7 % Eosinophils (%) (Auto) 6.2 % Basophils (%) (Auto) 1.6 % Neutrophils # (Auto) 5.74 K/uL Lymphocytes # (Auto) 1.25 K/uL Monocytes # (Auto) 0.84 K/uL Eosinophils # (Auto) 0.54 K/uL Basophils # (Auto) 0.14 K/uL RDW Standard Deviation 63.4 fL RDW Coefficient of Variation 20.9 % Immature Granulocyte % (Auto) 1.6 % Immature Granulocyte # (Auto) 0.14 K/uL Hypersegmented Polys 1+ Hypochromasia PRESENT Anisocytosis PRESENT Sodium Level 139 mmol/L Potassium Level 3.8 mmol/L Chloride Level 107 mmol/L Carbon Dioxide Level 24 mmol/L Anion Gap 8.0 mmol/L Blood Urea Nitrogen 20 mg/dl Creatinine 0.72 mg/dl Est Creatinine Clear Calc Drug Dose 91.1 ml/min Estimated GFR () 112.7 Estimated GFR (Non- 97.2 BUN/Creatinine Ratio 27.2 Random Glucose 82 mg/dl Calcium Level 9.1 mg/dl Magnesium Level 1.5 mg/dl Prothrombin Time 11.6 SECONDS Prothromb Time International Ratio 1.1 (Kalpana Patel CRNP) Assessment and Plan Mr. Ruvalcaba is a 66 y/o man here for Left BKA/lower extremity cellulitis with open wounds. Recent UTI on April 02 had Escherichia coli resistant to ampicillin and quinolones, and group B strep pansensitive. UTI on March 22 had group B streptococcus pansensitive. Left BKA cellulitis/necrotizing fasciitis, deep tissue injury to left posterior thigh - three-phase limited bone scan to assess for possible osteomyelitis - none seen on imaging - Wound care consulted - orthopedics consult - to OR tomorrow - wound culture and urine both grew out pseudomonas - abx narrowed to ciprofloxacin Hypomagnesemia - repleated Spina bifida-- Continue baclofen one by mouth 3 times a day. GERD-- Continue pantoprazole 40 mg by mouth daily. Insomnia-- Continue Restoril 7.5 mg by mouth at bedtime. Nutraceuticals continue ferrous sulfate, folic acid, boost, probiotics and vitamin B1. Resuscitation status - full code DVT prophylaxis - SCDs, heparin subq (Kalpana Patel ., JORDY) Attending Attestation: Pt seen/examined, chart reviewed, care plan d/w JORDY Patel. I agree w/ the ellis components of her documentation. No new issues overnight He anticipates surgery tomorrow on left BKA No cp, sob, abd pain VSS no fever gen - NAD heart - RRR, s1, s2 lungs - CTA b/l abd - soft NT ND BS+ ext - right leg wnl, no edema, pulses 2+; left leg BKA with dressings in place skin - I did not remove dressings today on left BKA stump; candidiasis in groin b/l A/P: 1. left BKA stump infection - appreciate ortho consultation. To OR tomorrow with Dr. Grady - either revision of BKA stump/debridement or perhaps even AKA. Agree with narrowing abx to cipro IV. 2. moderate protein calorie malnutrition - boost, MVI, etc. 3. anemia of chronic disease - obtained records from [facility] - baseline Hb about 9-10. Consider checking iron studies this admission. 4. complicated/washburn-catheter associated UTI - pseudomonas - cipro IV. 5. DVT proph - heparin BID. 6. paraplegic status - 2nd to spina bifida. 7. deep tissue injury to left posterior thigh - will examine such this weekend. Wound care following. 8. fungal infection to right buttocks and b/l groin - antifungals. 9. h/o PAD - records obtained from [facility] - had NORMAL arterial dopplers of both legs on 04/18/17. Manoj Ivory MD (Manoj Ivory MD)
[2017-04-29] MEDS: BOOST VANILLA PO SCH ×4 (11:55→16:54)
[2017-04-29] MEDS: MAGNESIUM SULFATE 1GM / D5W 1 GM in PREMIXED IN D5W 100 ML IV SCH ×3 (14:09→16:54)
[2017-04-29] MEDS: HEPARIN SOD 5000 UNIT/0.5 ML CARP SQ SCH ×2 (14:11→22:13)
[2017-04-29 15:36] VITALS: BP 112/63; PULSE 68; TEMP 36.6; O2SAT 97
--- NOTE | 2017-04-29 17:00 | Orthopedic Consultation ---
Orthopedic Consultation Date of Consultation: Apr 29, 2017. Attending Physician: Manoj Ivory MD Reason for Consultation: Infected left BKA stump History of Present Illness 66-year-old male with history of spina bifida who previously underwent left BKA at [facility] in 1984 for treatment of Charcot foot. He then admitted and [facility] about 2 weeks prior. He has been at [facility] most recently. He has been having increasing wound problems after developing an ulcer over the left BKA stump. Past Medical/Surgical History Medical Problems: (1) Failure of outpatient treatment Status: Acute (2) Left leg cellulitis Status: Acute Social History Smoking Status: Never Smoker Smokeless Tobacco Use: No Alcohol Use: none Drug Use: none Housing Status: [facility] Occupation Status: disabled Allergies Coded Allergies: Latex1 -Allergic Contact Dermititis (Unverified Allergy, Unknown, ., 04/27) Home Medications Scheduled Acetic Acid (Acetic Acid 0.25%), 1 APPLN TOP BID Baclofen (Baclofen), 1 TAB PO TID Cephalexin Monohydrate (Keflex), 500 MG PO QID Doxycycline Hyclate (Doxycycline Hyclate), 1 TAB PO BID Ferrous Sulfate (Kp Ferrous Sulfate), 1 TAB PO BID Folic Acid (Folvite), 1 MG PO DAILY Nutritional Supplements (Boost), 1 BOX PO TID Pantoprazole (Protonix), 40 MG PO DAILY Probiotic Product (Probiotic), 1 CAP PO BID Temazepam (Restoril), 7.5 MG PO HS Thiamine Hcl (Vitamin B-1), 0.5 TAB PO DAILY Scheduled PRN Acetaminophen (Tylenol), 650 MG PO for Mild Pain Melatonin (Kp Melatonin), 1 TAB PO HS PRN for Sleep Current Inpatient Medications Current Inpatient Medications Medications (Trade) Dose Ordered Sig/Stephen Route Start Time Stop Time Status Last Admin Dose Admin Acetaminophen 100 ml @ 400 mls/hr Q8H PRN IV 04/27/17 12:45 05/27/17 12:44 Ondansetron HCl (Zofran Inj) 4 mg Q6H PRN IV 04/27/17 12:45 05/27/17 12:44 Acetaminophen (Tylenol Tab) 650 mg Q6H PRN PO 04/27/17 13:00 05/27/17 12:59 Baclofen (Lioresal Tab) 20 mg TID PO 04/27/17 14:00 05/27/17 13:59 04/29/17 14:09 20 MG Folic Acid (Folvite Tab) 1 mg DAILY PO 04/28/17 08:00 05/28/17 08:59 04/29/17 09:45 1 MG Pantoprazole Sodium (Protonix Tab) 40 mg DAILY PO 04/28/17 08:00 05/28/17 08:59 04/29/17 09:45 40 MG Temazepam (Restoril Cap) 7.5 mg HS PO 04/27/17 21:00 05/27/17 20:59 04/28/17 20:37 7.5 MG Thiamine HCl (Vitamin B-1 Tab) 50 mg DAILY PO 04/28/17 08:00 05/28/17 08:59 04/29/17 09:45 50 MG Ferrous Sulfate (Feosol Tab) 325 mg BIDM PO 04/27/17 17:00 05/27/17 17:59 04/29/17 09:44 325 MG Lactobacillus Acidophilus (Floranex Tab) 4 tab TIDM PO 04/27/17 17:00 05/27/17 17:59 04/29/17 14:09 4 TAB Multivitamins/ Minerals (Multivitamin W/ Minerals Tab) 1 tab QAM PO 04/29/17 08:00 05/29/17 07:59 04/29/17 09:45 1 TAB Ascorbic Acid (Vitamin C Tab) 500 mg BID PO 04/28/17 20:00 05/28/17 19:59 04/29/17 09:46 500 MG Zinc Sulfate (Zinc Sulfate Cap) 220 mg QAM PO 04/28/17 17:30 05/12/17 17:29 04/29/17 09:46 220 MG Heparin Sodium (Porcine) (Heparin Sq 5000 Unit/0.5ml) 5,000 unit Q12 SQ 04/29/17 09:00 05/29/17 08:59 04/29/17 14:11 5,000 UNIT Enteral Nutritional Formula (Boost) 1 can TIDM PO 04/29/17 12:00 05/29/17 11:59 04/29/17 11:55 1 CAN Ciprofloxacin/ Dextrose 400 mg/ Prmx 200 ml @ 100 mls/hr Q12 IV 04/29/17 21:00 05/09/17 20:59 Physical Exam Date Time Temp Pulse Resp B/P (MAP) Pulse Ox O2 Delivery O2 Flow Rate FiO2 04/29/17 15:36 36.6 68 18 112/63 (79) 97 Room Air 04/29/17 11:01 Room Air 04/29/17 08:10 37.0 65 18 108/67 (81) 98 Room Air 04/29/17 00:40 Room Air 04/28/17 23:59 36.8 56 18 113/70 (84) 98 Room Air Left lower extremity: Status post BKA. There is numerous areas of black eschar with some mild surrounding erythema and yellow exudate. The region of eschar constituting the vast majority of distal and and posterior aspect of the BKA stump. General Appearance: no apparent distress Head: normocephalic Eyes: normal inspection Neck: supple Respiratory/Chest: chest non-tender Abdomen/GI: soft Laboratory Results Last 24 Hours Test 04/29/17 01:31 04/29/17 06:45 04/29/17 10:01 Vancomycin Level Trough 33.2 mcg/ml White Blood Count 8.65 K/uL Red Blood Count 3.63 M/uL Hemoglobin 9.3 g/dL Hematocrit 30.5 % Mean Corpuscular Volume 84.0 fL Mean Corpuscular Hemoglobin 25.6 pg Mean Corpuscular Hemoglobin Concent 30.5 g/dl Platelet Count 340 K/uL Mean Platelet Volume 9.8 fL Neutrophils (%) (Auto) 66.4 % Lymphocytes (%) (Auto) 14.5 % Monocytes (%) (Auto) 9.7 % Eosinophils (%) (Auto) 6.2 % Basophils (%) (Auto) 1.6 % Neutrophils # (Auto) 5.74 K/uL Lymphocytes # (Auto) 1.25 K/uL Monocytes # (Auto) 0.84 K/uL Eosinophils # (Auto) 0.54 K/uL Basophils # (Auto) 0.14 K/uL RDW Standard Deviation 63.4 fL RDW Coefficient of Variation 20.9 % Immature Granulocyte % (Auto) 1.6 % Immature Granulocyte # (Auto) 0.14 K/uL Hypersegmented Polys 1+ Hypochromasia PRESENT Anisocytosis PRESENT Sodium Level 139 mmol/L Potassium Level 3.8 mmol/L Chloride Level 107 mmol/L Carbon Dioxide Level 24 mmol/L Anion Gap 8.0 mmol/L Blood Urea Nitrogen 20 mg/dl Creatinine 0.72 mg/dl Est Creatinine Clear Calc Drug Dose 91.1 ml/min Estimated GFR () 112.7 Estimated GFR (Non- 97.2 BUN/Creatinine Ratio 27.2 Random Glucose 82 mg/dl Calcium Level 9.1 mg/dl Magnesium Level 1.5 mg/dl Prothrombin Time 11.6 SECONDS Prothromb Time International Ratio 1.1 Assessment & Plan Infected BKA stump Per report he apparently still has arterial flow to the distal stump. However he has a fair amount of eschar throughout the distal aspect and posteriorly. The plan is for Dr. umanzor performed a I&D of the stump tomorrow. I discussed with the patient that given the extensive nature of the wounds he may end up requiring an AKA that we will likely be determined based on the findings at the time surgery. We will make him nothing by mouth after midnight.
[2017-04-29] MEDS: TEMAZEPAM 7.5 MG CAP PO SCH (21:57)
[2017-04-29] MEDS: CIPROFLOXACIN / D5W 400 MG in PREMIXED IN D5W 200 ML IV SCH (22:23)
[2017-04-29 23:43] VITALS: BP 115/64; PULSE 77; TEMP 36.9; O2SAT 97
[2017-04-30] VITALS (8 sets, daily range): BP systolic 103–119; BP diastolic 63–77; PULSE 66–88; TEMP 36.1–37.1; O2SAT 95–100
[2017-04-30] MEDS ORDERED: PANTOprazole SOD 40 MG TAB PO STA (00:47)
[2017-04-30 06:14] LABS: BASO % 0.9 %; BASO ABS # 0.09 K/uL (0-0.2); HEMATOCRIT 28.7 % (42-52); IG% 1.7 %; LYMPH % 12.8 %; LYMPH ABS # 1.27 K/uL (1.2-3.4); MEAN CELL VOLUME 84.7 fL (80-100); MEAN CORPUSCULAR HEMOGLOBIN 25.7 pg (25-34); MEAN CORPUSCULAR HGB CONC 30.3 g/dl (32-36); MEAN PLATELET VOLUME 9.6 fL (7.4-10.4); MONO % 9.2 %; NEUT % 72.4 %; PLATELET COUNT 336 K/uL (130-400); RED BLOOD COUNT 3.39 M/uL (4.7-6.1); WHITE BLOOD COUNT 9.91 K/uL (4.8-10.8)
[2017-04-30 06:39] LABS: BUN/CREATININE RATIO 27.3 (10-20); CALCIUM 8.8 mg/dl (8.5-10.1); CREATININE 0.64 mg/dl (0.60-1.40); MAGNESIUM 1.9 mg/dl (1.8-2.4); POTASSIUM 3.7 mmol/L (3.5-5.1)
[2017-04-30 06:48] LABS: ANISOCYTOSIS PRESENT; COMPLETE YES; HYPERSEGMENTED POLYS 1+; HYPOCHROMIA PRESENT
[2017-04-30] MEDS: FERROUS SULFATE 325 MG TAB PO SCH ×2 (07:41→17:12)
[2017-04-30] MEDS: LACTOBACILLUS ACIDOPHILUS (FLORANEX) TAB PO SCH ×3 (07:41→17:12)
[2017-04-30] MEDS: BOOST VANILLA PO SCH ×6 (07:41→17:12)
[2017-04-30] MEDS: HEPARIN SOD 5000 UNIT/0.5 ML CARP SQ SCH (07:42)
[2017-04-30] MEDS: ASCORBIC ACID 500 MG TAB PO SCH ×2 (07:42→20:01)
[2017-04-30] MEDS: BACLOFEN TAB 20 MG TAB PO SCH ×3 (07:42→20:01)
[2017-04-30] MEDS: CEROVITE ADV FORMULA TAB PO SCH (07:43)
[2017-04-30] MEDS: THIAMINE HCL 50 MG TAB PO SCH (07:44)
[2017-04-30] MEDS: PANTOprazole SOD 40 MG TAB PO SCH ×2 (07:44→12:58)
[2017-04-30] MEDS: ZINC SULFATE 220 MG CAP PO SCH (07:44)
[2017-04-30] MEDS ORDERED: PANTOprazole SOD 40 MG TAB PO SCH (08:00)
[2017-04-30] MEDS: CIPROFLOXACIN / D5W 400 MG in PREMIXED IN D5W 200 ML IV SCH ×2 (08:17→20:09)
[2017-04-30] MEDS ORDERED: FENTANYL CITRATE INJ 50 MCG/1 ML 2 ML VIAL ONE (08:56)
[2017-04-30] MEDS ORDERED: LIDOCAINE HCL 2% 2 ML VIAL (20MG/ML) ONE (08:56)
[2017-04-30] MEDS ORDERED: MIDAZOLAM HCL 1 MG/ML 2ML VIAL ONE (08:56)
[2017-04-30] MEDS ORDERED: PROPOFOL IV EMULSION 10 MG/ML 20 ML VIAL IV ONE (08:56)
[2017-04-30] MEDS ORDERED: BUPIVACAINE 0.5 % 5 MG/1 ML MPF 30ML VIAL ONE (09:08)
[2017-04-30] MEDS ORDERED: BACITRACIN 50000 UNIT VIAL ONE (09:08)
--- NOTE | 2017-04-30 09:10 | History & Physical Bridge Note ---
H&P Re-Evaluation Bridge Note: I have examined the patient, reviewed the History & Physical and in the interval since the performance of the History & Physical I have noted the following changes of clinical significance: Wound necrosis left distal lower residual extremity with serpiginous features, local induration and fluctuance. To the OR today for I and D with possible revision left BKA.
[2017-04-30] MEDS ORDERED: VANCOMYCIN HCL 1000MG/20ML VIAL ONE (09:17)
[2017-04-30] MEDS ORDERED: GENTAMICIN SULFATE 40 MG/ML 2 ML VIAL ONE (09:17)
[2017-04-30] MEDS ORDERED: CEFAZOLIN SOD 1 GM VIAL ONE (09:52)
[2017-04-30] MEDS ORDERED: PHENYLEPHRINE 100MCG/ML 5ML SYR ONE (09:53)
[2017-04-30] MEDS ORDERED: DEXAMETHASONE SOD INJ 4 MG/ML VIAL ONE (09:53)
[2017-04-30] MEDS ORDERED: ONDANSETRON INJ 2 MG/ML 2 ML VIAL ONE (09:53)
[2017-04-30] MEDS ORDERED: EpHEDrine SULFATE 50MG/5ML SYR ONE (09:53)
[2017-04-30] MEDS ORDERED: GLYCOPYRROLATE INJ 0.2 MG/ML VIAL ONE (11:18)
[2017-04-30] MEDS ORDERED: NEOSTIGMINE METHYLSULFATE 5 MG/5 ML SYR ONE (11:18)
[2017-04-30] MEDS ORDERED: FENTANYL CITRATE INJ 50 MCG/1 ML 2 ML VIAL IV PRN (12:15)
[2017-04-30] MEDS ORDERED: MEPERIDINE HCL 25 MG/ML CARP IV PRN (12:15)
[2017-04-30] MEDS ORDERED: HYDROmorphone INJ 1 MG/ML SYR IV PRN (12:15)
[2017-04-30] MEDS ORDERED: ONDANSETRON INJ 2 MG/ML 2 ML VIAL IV PRN (12:15)
[2017-04-30] MEDS ORDERED: ATROPINE SULFATE 0.1 MG/ML 5ML SYR IV PRN (12:15)
[2017-04-30] MEDS ORDERED: LABETALOL HCL IV 5 MG/ML 20ML IV PRN (12:15)
[2017-04-30] MEDS ORDERED: EpHEDrine SULFATE INJ 50 MG/ML AMP IV PRN (12:15)
[2017-04-30] MEDS ORDERED: ROCURONIUM BROMIDE 10 MG/ML 5 ML VIAL IV ONE (12:16)
--- NOTE | 2017-04-30 12:17 | [facility] Post Operative Brief Note ---
Immediate Operative Summary Operative Date Apr 30, 2017. Pre-Operative Diagnosis Left necrotic below knee amputation Post-Operative Diagnosis Left necrotic below knee amputation; Necrotizing fasciitis Left lower leg Procedure(s) Performed 1. Revision Left Below Knee Amputation 2. Debridement skin, fascia and ulcerations posterior leg and thigh left lower leg Surgeon Dr. Grady Manager Stylist Surgeon(s) Moise Clark PA-C Estimated Blood Loss 20 cc Findings See dict Specimens Microbiology #1 Left lower leg fluid gram stain aerobic/anaerobic culture and sensitivity #2 Left lower leg tissue gram stain aerobic/anaerobic culture and sensitivity Specimen A: Tissue Left Lower Leg Drains Hemovac drains x 2 Anesthesia GLMA w/ local Complication(s) None Disposition Recovery Room / PACU
[2017-04-30 12:30] LABS: HEMATOCRIT 29.2 % (42-52)
[2017-04-30] MEDS: ACETAMINOPHEN 325 MG TAB PO PRN (13:00)
--- NOTE | 2017-04-30 13:02 | Anesthesiology Progress Note ---
Anesthesia Post Op Note Date & Time Apr 30, 2017 at 13:02 Vital Signs Pain Intensity: 5.0 Vital Signs Past 12 Hours Date Time Temp Pulse Resp B/P (MAP) Pulse Ox O2 Delivery O2 Flow Rate FiO2 04/30/17 12:49 36.4 71 18 117/74 (88) 96 Room Air 04/30/17 12:25 67 18 126/69 100 Nasal Cannula 2 04/30/17 12:15 69 18 123/67 100 Nasal Cannula 4 04/30/17 12:05 68 18 116/70 100 Nasal Cannula 4 04/30/17 11:55 36.4 70 18 110/64 100 Nasal Cannula 4 04/30/17 08:00 Room Air 04/30/17 07:46 37.0 67 18 109/64 (79) 99 Room Air Notes Mental Status: alert / awake / arousable, participated in evaluation Pt Amnestic to Procedure: Yes Nausea / Vomiting: adequately controlled Pain: adequately controlled Airway Patency, RR, SpO2: stable & adequate BP & HR: stable & adequate Hydration State: stable & adequate Anesthetic Complications: no major complications apparent
--- NOTE | 2017-04-30 13:28 | OPERATIVE REPORT ---
DATE OF OPERATION: 04/30/2017 PREOPERATIVE DIAGNOSES: 1. Left necrotic below knee amputation. 2. Ulceration of the left lower extremity, thigh and leg. POSTOPERATIVE DIAGNOSES: 1. Left necrotic below knee amputation. 2. Ulceration of left lower extremity, thigh and leg. 3. Necrotizing fasciitis, left lower leg. PROCEDURES: 1. Left revision below knee amputation with resection of approximately 4-5 inches of distal tibia and fibula, left lower extremity. 2. Debridement of skin, fascia and ulcerations on the left lower thigh and leg. SURGEON: Dr. Robert Grady. FLOAT OPERATOR: ROSEANNE Valentino, who was present for patient positioning, sterile prep and drape, management of retractors and instruments. He was present through the critical portions of the case including wound closure, application of sterile dressing and transport of the patient to recovery. ANESTHESIA: General LMA with local. SPECIMENS: Skin, fascia, bone and tissue from the left lower extremity. Also aerobic, anaerobic and Gram stain specimens from the left lower leg. DRAINS: Hemovac x2. COMPLICATIONS: None. BLOOD LOSS: 20 mL. PERTINENT HISTORY: This is a 66-year-old gentleman who had longstanding left below knee amputation at [facility] in 1984, which had been functionally done very well for him. He has a history of spina bifida with prior spinal surgery. He apparently developed a Charcot foot many years ago and then went to an outside facility and had a below knee amputation. He stopped using his prosthesis over a year ago and was just doing transfers with his functional right lower extremity and this residual left lower extremity. The patient was admitted at [facility] approximately 2 weeks ago. He was transferred to [facility] after treatment for a severe UTI. He has been having increasing wound difficulty with his left lower extremity, ulcerations, pain and wound complications. He was then transferred to [facility]. Attempt was made to treat his chronic ulcers with continued IV antibiotics; however, it became evident that the infection past deep to the skin, beyond ulceration bordering on the fasciitis and the patient was then scheduled for surgery as indicated. All potential risks, benefits, complications, alternatives, rehab, potential for incomplete relief of symptoms, need for further surgery, DVT, PE, , persistent pain, swelling, scarring, weakness, neurovascular injury, wound complications, possible need for further revision, amputation and/or above knee amputation were discussed with the patient. The patient decided to proceed with the procedure as indicated. DESCRIPTION OF PROCEDURE: The patient was taken to the operative suite and placed supine on the operating table. After review of the consent and identification of proper operative site, the patient was anesthetized and LMA was placed. Tourniquet was placed high on the left thigh over cast padding. Left lower extremity was then sterilely prepped and draped in the usual fashion. The limb was elevated. It was not exsanguinated due to the nature of the infection. The tourniquet was then inflated to 300 mmHg. Next, 10 blade scalpel was then used to debride the necrotic tissue and I exposed subQ fat with a 10 blade scalpel. There were noted to be multiple areas of compromise of the fascia. Fascia had a weakened friable consistency and texture and was then debrided carefully with a rongeur. There was a suspicious for necrotizing fasciitis, therefore, all necrotic appearing skin was then sharply debrided with a 10 blade scalpel, most of which was in essence necrotic subcutaneous fat. The deeper fatty layers were also compromised and dark in hue with friability. Next, the incision was made to perform revision of below knee amputation; therefore to resect the entire area of the anterior aspect of the distal left lower extremity due to necrotizing fasciitis. The tissue was then sent as fresh specimen and aerobic, anaerobic, Gram stain culture was obtained and passed off. Next, a transverse incision was made to the compromised tissue, which was delaminating from the basement membrane and from the fascia with a 10 blade scalpel anteriorly. This was then shaped the according to the zone of demarcation anteriorly. Next, the anterior compartment was then incised with a 10 blade scalpel, noting significant fatty atrophy of the tibialis anterior and surrounding musculature. The tibia was encountered. There was no excessive softness of bone, which conferred chronic longstanding below knee amputation rather than any evidence of osteomyelitis. Next, sagittal saw was then used to resect approximately 4-5 inches of the distal tibia and corresponding fibula was then skeletonized with a soft tissue elevator. Hohmann retractors were placed around the fibula and then a sagittal saw was then used to resect the fibula slightly above the level of the tibia approximately 1 cm. Next, the distal aspect of the tibia was then double cut with a sagittal saw and smoothed with a rongeur. Next, the neurovascular bundle was then identified and a 2-0 silk tie, which doubled was then used to tie off the neurovascular bundle and then, the posterior compartment was then shaped using debridement with 10 blade scalpel as well as the sharpened fillet knife. Next, the posterior flap was then revised as appropriate to resect any necrotic appearing tissue or fascia until healthy appearing tissue was left behind. Next, pulsatile lavage, 3 liters with bacitracin was then used to cleanse the left lower extremity until clear and then the deep fascial compartment of the gastrocnemius and Achilles fascia was then closed to the anterior compartment fascia with buried interrupted 0 Vicryl sutures. Twin 10-Setswana Hemovac drains were placed exiting medially and laterally, proximal to the incision and then the skin was then closed using interrupted 2-0 nylon sutures with a combination of simple and horizontal mattress sutures. There was an area of superficial wound necrosis and ulceration, which instead of resecting the entirety of the tissue, resulting compromised flap, these ulcerations were debrided sharply with a 10 blade scalpel on the left lower extremity including the left lower leg and the lateral thigh. The residual flap had slight obliquity to it due to the involvement of the loss of tissue through the necrosis and fasciitis. This was deemed necessary in this case for limb salvage and resultant the longest residual left lower extremity below the level of the knee for mobility and propulsion. Next, the wound was then cleansed with sterile normal saline and a sterile compressive dressing was applied consisting of Acticoat, sterile 4 x 4's, ABD pads, Kerlix roll and cast padding overwrapped with two 6-inch Oleg wraps. The tourniquet was released, the patient was awakened and taken to recovery in stable condition. I attest to the content of the Intraoperative Record and any orders documented therein. Any exceptions are noted below. MANOLOD
--- NOTE | 2017-04-30 19:30 | Progress Note ---
Subjective Date of Service: Apr 30, 2017. Subjective Pt evaluation today including: conversation w/ patient, conversation w/ family (fiance), physical exam, chart review, lab review, review of inpatient medication list Pain: none PO Intake: normal Voiding: washburn catheter in place I saw the patient post-op from his BKA revision was resting comfortable and had no complaints fiance reports that a SNF in [place] may have bed for him next week ([facility]) Problem List Medical Problems: (1) Failure of outpatient treatment Status: Acute (2) Left leg cellulitis Status: Acute Review of Systems Constitutional: No fever, No chills Respiratory: No shortness of breath Cardiac: No chest pain Abdomen: No pain Objective Vital Signs Date Time Temp Pulse Resp B/P (MAP) Pulse Ox O2 Delivery O2 Flow Rate FiO2 04/30/17 15:55 Room Air 04/30/17 15:50 36.1 66 18 118/69 (85) 100 Room Air 04/30/17 14:45 36.5 74 16 119/72 (88) 98 Room Air 04/30/17 13:49 36.4 66 16 117/71 (86) 98 Room Air 04/30/17 13:14 36.5 69 16 117/77 (90) 95 Room Air 04/30/17 12:49 36.4 71 18 117/74 (88) 96 Room Air 04/30/17 12:25 67 18 126/69 100 Nasal Cannula 2 04/30/17 12:15 69 18 123/67 100 Nasal Cannula 4 04/30/17 12:05 68 18 116/70 100 Nasal Cannula 4 04/30/17 11:55 36.4 70 18 110/64 100 Nasal Cannula 4 04/30/17 08:00 Room Air 04/30/17 07:46 37.0 67 18 109/64 (79) 99 Room Air 04/30/17 00:00 Room Air 04/29/17 23:43 36.9 77 20 115/64 (81) 97 Room Air Physical Exam General Appearance: no apparent distress ENT: pharynx normal Neck: no JVD Respiratory/Chest: lungs clear, no respiratory distress, no accessory muscle use Cardiovascular: regular rate, rhythm, no gallop, no murmur Abdomen: normal bowel sounds, non tender, soft, no organomegaly Extremities: no pedal edema (right leg), + pertinent finding (left BKA stump in large HÉCTOR wrap dressing with ice pack in place) Neurologic/Psychiatric: alert, oriented x 3 Laboratory Results Last 24 Hours Test 04/30/17 05:51 04/30/17 12:10 White Blood Count 9.91 K/uL Red Blood Count 3.39 M/uL Hemoglobin 8.7 g/dL 8.7 g/dL Hematocrit 28.7 % 29.2 % Mean Corpuscular Volume 84.7 fL Mean Corpuscular Hemoglobin 25.7 pg Mean Corpuscular Hemoglobin Concent 30.3 g/dl Platelet Count 336 K/uL Mean Platelet Volume 9.6 fL Neutrophils (%) (Auto) 72.4 % Lymphocytes (%) (Auto) 12.8 % Monocytes (%) (Auto) 9.2 % Eosinophils (%) (Auto) 3.0 % Basophils (%) (Auto) 0.9 % Neutrophils # (Auto) 7.17 K/uL Lymphocytes # (Auto) 1.27 K/uL Monocytes # (Auto) 0.91 K/uL Eosinophils # (Auto) 0.30 K/uL Basophils # (Auto) 0.09 K/uL RDW Standard Deviation 64.9 fL RDW Coefficient of Variation 21.0 % Immature Granulocyte % (Auto) 1.7 % Immature Granulocyte # (Auto) 0.17 K/uL Hypersegmented Polys 1+ Hypochromasia PRESENT Anisocytosis PRESENT Sodium Level 139 mmol/L Potassium Level 3.7 mmol/L Chloride Level 108 mmol/L Carbon Dioxide Level 26 mmol/L Anion Gap 5.0 mmol/L Blood Urea Nitrogen 18 mg/dl Creatinine 0.64 mg/dl Est Creatinine Clear Calc Drug Dose 102.5 ml/min Estimated GFR () 118.3 Estimated GFR (Non- 102.0 BUN/Creatinine Ratio 27.3 Random Glucose 96 mg/dl Calcium Level 8.8 mg/dl Magnesium Level 1.9 mg/dl Assessment and Plan 66yo male with: 1. 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 Appreciate Dr. Grady's assistance. Follow intra-op cultures. Continue IV cipro for pseudomonas but adjust abx as necessary. 2. moderate protein calorie malnutrition - boost, MVI, etc. 3. anemia of chronic disease - obtained records from [facility] - baseline Hb about 9-10. Check iron studies in am. He received IV iron in the last few months at [place]. 4. complicated/washburn-catheter associated UTI - pseudomonas - cipro IV. 5. DVT proph - heparin BID. 6. paraplegic status - 2nd to spina bifida. 7. deep tissue injury to left posterior thigh - will examine such this weekend. Wound care following. 8. fungal infection to right buttocks and b/l groin - antifungals. 9. h/o PAD - records obtained from [facility] - had NORMAL arterial dopplers of both legs on 04/18/17. fiance updated Continued [facility] stay due to: multiple IV medications needed Discharge planning: retirement facility
[2017-04-30] MEDS: TEMAZEPAM 7.5 MG CAP PO SCH (22:08)
[2017-05-01 03:20] VITALS: BP 106/61; PULSE 84; TEMP 37.3; O2SAT 99
[2017-05-01 06:41] LABS: HEMATOCRIT 27.1 % (42-52); MEAN CELL VOLUME 85.2 fL (80-100); MEAN CORPUSCULAR HEMOGLOBIN 25.8 pg (25-34); MEAN CORPUSCULAR HGB CONC 30.3 g/dl (32-36); MEAN PLATELET VOLUME 9.8 fL (7.4-10.4); PLATELET COUNT 342 K/uL (130-400); RED BLOOD COUNT 3.18 M/uL (4.7-6.1); WHITE BLOOD COUNT 14.73 K/uL (4.8-10.8)
[2017-05-01 06:57] LABS: PROTHROMBIN TIME (PATIENT) 11.2 SECONDS (9.0-12.0)
[2017-05-01 07:09] LABS: BUN/CREATININE RATIO 22.7 (10-20); CREATININE 0.6 mg/dl (0.60-1.40); POTASSIUM 4.2 mmol/L (3.5-5.1)
[2017-05-01 07:16] LABS: FERRITIN 204.9 ng/ml (8.0-388.0)
[2017-05-01 07:32] VITALS: BP 107/66; PULSE 82; TEMP 37; O2SAT 99
--- NOTE | 2017-05-01 07:46 | Orthopedic Progress Note ---
Orthopedic Progress Note Date of Service May 01, 2017. Subjective Post OP Day: 1 Reports: feeling well, pain controlled w PO medications, Denies: complaints, chest pain, SOB, nausea / vomiting, light headedness Objective dressing clean dry and intact hemovac drainage @ 50cc/8 hours Date Time Temp Pulse Resp B/P (MAP) Pulse Ox O2 Delivery O2 Flow Rate FiO2 05/01/17 07:32 37.0 82 18 107/66 (80) 99 Room Air 05/01/17 03:20 37.3 84 18 106/61 (76) 99 Room Air 05/01/17 00:09 Room Air 04/30/17 23:15 37.1 88 20 103/63 (76) 99 Room Air 04/30/17 19:42 Room Air 04/30/17 19:26 36.8 74 18 103/ (34) 100 Room Air 04/30/17 15:55 Room Air 04/30/17 15:50 36.1 66 18 118/69 (85) 100 Room Air 04/30/17 14:45 36.5 74 16 119/72 (88) 98 Room Air 04/30/17 13:49 36.4 66 16 117/71 (86) 98 Room Air 04/30/17 13:14 36.5 69 16 117/77 (90) 95 Room Air 04/30/17 12:49 36.4 71 18 117/74 (88) 96 Room Air 04/30/17 12:25 67 18 126/69 100 Nasal Cannula 2 04/30/17 12:15 69 18 123/67 100 Nasal Cannula 4 04/30/17 12:05 68 18 116/70 100 Nasal Cannula 4 04/30/17 11:55 36.4 70 18 110/64 100 Nasal Cannula 4 04/30/17 08:00 Room Air 04/30/17 07:46 37.0 67 18 109/64 (79) 99 Room Air Laboratory Results 24 Hours: Test 04/30/17 12:10 05/01/17 05:51 Hematocrit 29.2 % 27.1 % Hemoglobin 8.7 g/dL 8.2 g/dL Prothromb Time International Ratio 1.0 Prothrombin Time 11.2 SECONDS Assessment & Plan Assessment: POD #1 s/p revision amputation BKA -will leave dressing in place until able to put wound vac over stump, hemovac draining at 50cc over last 8 hours -cont IV Abx -ice/elevate -VSS Discharge Planning Discharge Planning: uncertain
[2017-05-01] MEDS: FERROUS SULFATE 325 MG TAB PO SCH ×2 (07:48→15:47)
[2017-05-01] MEDS: PANTOprazole SOD 40 MG TAB PO SCH (07:48)
[2017-05-01] MEDS: CEROVITE ADV FORMULA TAB PO SCH (07:48)
[2017-05-01] MEDS: BACLOFEN TAB 20 MG TAB PO SCH ×3 (07:49→19:38)
[2017-05-01] MEDS: ASCORBIC ACID 500 MG TAB PO SCH ×2 (07:49→19:38)
[2017-05-01] MEDS: ZINC SULFATE 220 MG CAP PO SCH (07:49)
[2017-05-01] MEDS: LACTOBACILLUS ACIDOPHILUS (FLORANEX) TAB PO SCH ×3 (07:50→15:47)
[2017-05-01] MEDS: THIAMINE HCL 50 MG TAB PO SCH (07:50)
[2017-05-01] MEDS: CIPROFLOXACIN / D5W 400 MG in PREMIXED IN D5W 200 ML IV SCH ×2 (07:52→21:14)
[2017-05-01] MEDS: BOOST VANILLA PO SCH ×6 (07:57→15:47)
[2017-05-01 15:04] VITALS: BP 102/60; PULSE 82; TEMP 36.9; O2SAT 99
[2017-05-01] MEDS ORDERED: IRON SUCROSE INJ 100 MG in SODIUM CHLORIDE 0.9% 100ML 100 ML IV SCH (15:15)
[2017-05-01] MEDS ORDERED: IRON SUCROSE INJ 300 MG in SODIUM CHLORIDE 0.9% 250ML IV SCH (16:00)
--- NOTE | 2017-05-01 21:06 | Progress Note ---
Subjective Date of Service: May 01, 2017. Subjective Pt evaluation today including: conversation w/ patient, conversation w/ family (fiance), physical exam, chart review, lab review, conversation w/ beverage sales consultant ( heme/onc), review of inpatient medication list Pain: denies PO Intake: good/improved Voiding: washburn catheter in place no events overnight/this am feels pretty good no major complaints staff report no issues Problem List Medical Problems: (1) Failure of outpatient treatment Status: Acute (2) Left leg cellulitis Status: Acute Review of Systems Constitutional: No fever, No chills Respiratory: No cough, No shortness of breath Cardiac: No chest pain Abdomen: + constipation, No pain, No vomiting, No diarrhea Objective Vital Signs Date Time Temp Pulse Resp B/P (MAP) Pulse Ox O2 Delivery O2 Flow Rate FiO2 05/01/17 15:04 36.9 82 16 102/60 (74) 99 Room Air 05/01/17 08:00 Room Air 05/01/17 07:32 37.0 82 18 107/66 (80) 99 Room Air 05/01/17 03:20 37.3 84 18 106/61 (76) 99 Room Air 05/01/17 00:09 Room Air 04/30/17 23:15 37.1 88 20 103/63 (76) 99 Room Air Physical Exam General Appearance: no apparent distress ENT: pharynx normal Neck: no JVD Respiratory/Chest: lungs clear, no respiratory distress, no accessory muscle use Cardiovascular: regular rate, rhythm, no gallop, no murmur Abdomen: normal bowel sounds, non tender, soft, no organomegaly, + distended ( minimally), + pertinent finding ( - 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, per fiance - was like this prior to the hospitalization)) Extremities: no pedal edema (right leg), + pertinent finding (left BKA - with large dressing in place and hemovac ) Neurologic/Psychiatric: alert, oriented x 3, + motor weakness (paraplegia of legs; muscle atrophy noted of intrinsic muscles of hands ) Skin: + pertinent finding (ulcer, left lateral hip - clean, erythematous base, no odor or drainage; extensive sacral decubitus with superimposed fungal infection - improved; candidiasis in groin - improved) Laboratory Results Last 24 Hours Test 05/01/17 05:51 White Blood Count 14.73 K/uL Red Blood Count 3.18 M/uL Hemoglobin 8.2 g/dL Hematocrit 27.1 % Mean Corpuscular Volume 85.2 fL Mean Corpuscular Hemoglobin 25.8 pg Mean Corpuscular Hemoglobin Concent 30.3 g/dl RDW Standard Deviation 64.9 fL RDW Coefficient of Variation 21.3 % Platelet Count 342 K/uL Mean Platelet Volume 9.8 fL Prothrombin Time 11.2 SECONDS Prothromb Time International Ratio 1.0 Sodium Level 141 mmol/L Potassium Level 4.2 mmol/L Chloride Level 105 mmol/L Carbon Dioxide Level 28 mmol/L Anion Gap 8.0 mmol/L Blood Urea Nitrogen 14 mg/dl Creatinine 0.60 mg/dl Est Creatinine Clear Calc Drug Dose 109.3 ml/min Estimated GFR () 121.4 Estimated GFR (Non- 104.8 BUN/Creatinine Ratio 22.7 Random Glucose 102 mg/dl Calcium Level 9.0 mg/dl Iron Level 29 mcg/dl Total Iron Binding Capacity 185 mcg/dl Transferrin 154 mg/dl Transferrin % Saturation 13 % Ferritin 204.9 ng/ml Assessment and Plan 66yo male with: 1. 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 POD #1. Appreciate Dr. Grady's assistance. Intra-op cultures growing GNR and pseudomonas. Continue IV cipro for pseudomonas but adjust abx as necessary. Consider ID consultation. Added 2 week course of vitamin C and zinc to promote wound healing. Plan is for woundvac - tuesday? 2. moderate protein calorie malnutrition - boost, MVI, etc. 3. anemia of chronic disease - obtained records from [facility] - baseline Hb about 9-10. Hb now 8-.8.5. Iron sat on iron studies <20%. Will give IV venofer 300mg IV x 1 today. He received IV iron in the last few months at [facility] as well. 4. complicated/washburn-catheter associated UTI - pseudomonas - cipro IV. d/c current washburn tomorrow and replace with new one. 5. DVT proph - heparin TID. 6. paraplegic status - 2nd to spina bifida. 7. deep tissue injury to left posterior thigh - improved. 8. fungal infection to right buttocks and b/l groin along with sacral decub - antifungals, special air bed, etc. 9. h/o PAD - records obtained from [facility] - had NORMAL arterial dopplers of both legs on 04/18/17. 10. GERD - PPI qam. fiance updated 04/30 and 05/01 fiance/patient do NOT wish to return to [facility] at discharge he is from [place] and wishes to return there fiance reports they wish to go to [facility] at discharge Continued [facility] stay due to: multiple IV medications needed Discharge planning: jail facility
[2017-05-01] MEDS: HEPARIN SOD 5000 UNIT/0.5 ML CARP SQ SCH (22:08)
[2017-05-01] MEDS: TEMAZEPAM 7.5 MG CAP PO SCH (22:09)
[2017-05-01 23:33] VITALS: BP 103/65; PULSE 83; TEMP 37.3; O2SAT 96
[2017-05-02] MEDS: PANTOprazole SOD 40 MG TAB PO SCH (05:59)
[2017-05-02] MEDS: HEPARIN SOD 5000 UNIT/0.5 ML CARP SQ SCH ×3 (06:07→21:59)
[2017-05-02 06:49] LABS: HEMATOCRIT 27.3 % (42-52); MEAN CELL VOLUME 85.8 fL (80-100); MEAN CORPUSCULAR HEMOGLOBIN 26.1 pg (25-34); MEAN CORPUSCULAR HGB CONC 30.4 g/dl (32-36); PLATELET COUNT 329 K/uL (130-400); RED BLOOD COUNT 3.18 M/uL (4.7-6.1); WHITE BLOOD COUNT 10.16 K/uL (4.8-10.8)
[2017-05-02 07:14] VITALS: BP 108/68; PULSE 71; TEMP 37.1; O2SAT 97
[2017-05-02 07:22] LABS: BUN/CREATININE RATIO 26.2 (10-20); CALCIUM 9.1 mg/dl (8.5-10.1); CREATININE 0.58 mg/dl (0.60-1.40)
--- NOTE | 2017-05-02 07:51 | Anesthesiology Progress Note ---
Anesthesia Post Op Note Date & Time May 02, 2017 at 07:51 Vital Signs Pain Intensity: 2.0 Vital Signs Past 12 Hours Date Time Temp Pulse Resp B/P (MAP) Pulse Ox O2 Delivery O2 Flow Rate FiO2 05/02/17 07:14 37.1 71 20 108/68 (81) 97 Room Air 05/02/17 00:34 Room Air 05/01/17 23:33 37.3 83 20 103/65 (78) 96 Room Air 05/01/17 21:19 Room Air Notes Mental Status: alert / awake / arousable, participated in evaluation Pt Amnestic to Procedure: Yes Nausea / Vomiting: adequately controlled Pain: adequately controlled Airway Patency, RR, SpO2: stable & adequate BP & HR: stable & adequate Hydration State: stable & adequate Anesthetic Complications: no major complications apparent
[2017-05-02] MEDS: CEROVITE ADV FORMULA TAB PO SCH (08:15)
[2017-05-02] MEDS: ASCORBIC ACID 500 MG TAB PO SCH ×2 (08:15→20:18)
[2017-05-02] MEDS: BACLOFEN TAB 20 MG TAB PO SCH ×3 (08:15→20:19)
[2017-05-02] MEDS: THIAMINE HCL 50 MG TAB PO SCH (08:15)
[2017-05-02] MEDS: ZINC SULFATE 220 MG CAP PO SCH (08:15)
[2017-05-02] MEDS: FERROUS SULFATE 325 MG TAB PO SCH ×2 (08:16→17:18)
[2017-05-02] MEDS: LACTOBACILLUS ACIDOPHILUS (FLORANEX) TAB PO SCH ×3 (08:16→17:18)
[2017-05-02] MEDS: BOOST VANILLA PO SCH ×6 (08:17→17:17)
[2017-05-02] MEDS: SENNA 8.6 MG TAB PO SCH (08:19)
[2017-05-02] MEDS: POLYETHYLENE (MIRALAX) 17 GM PACK PO SCH ×2 (08:19→20:19)
[2017-05-02] MEDS: CIPROFLOXACIN / D5W 400 MG in PREMIXED IN D5W 200 ML IV SCH (08:32)
--- NOTE | 2017-05-02 10:35 | Orthopedic Progress Note ---
Orthopedic Progress Note Date of Service May 02, 2017. Subjective Post OP Day: 2 Reports: feeling well, pain controlled w PO medications, Denies: complaints, chest pain, SOB, nausea / vomiting, light headedness, calf pain Objective N/V intact, dressing C/D/I, A&O x3 Date Time Temp Pulse Resp B/P (MAP) Pulse Ox O2 Delivery O2 Flow Rate FiO2 05/02/17 07:14 37.1 71 20 108/68 (81) 97 Room Air 05/02/17 00:34 Room Air 05/01/17 23:33 37.3 83 20 103/65 (78) 96 Room Air 05/01/17 21:19 Room Air 05/01/17 15:04 36.9 82 16 102/60 (74) 99 Room Air Laboratory Results 24 Hours: Test 05/02/17 06:05 Hematocrit 27.3 % Hemoglobin 8.3 g/dL Assessment & Plan Assessment: POD #2 s/p revision amputation BKA -will leave dressing in place until able to put wound vac over stump, wound vac ordered. -cont IV Abx -ice/elevate -VSS Discharge Planning Discharge Planning: uncertain
--- NOTE | 2017-05-02 11:13 | Progress Note ---
Progress Note Date of Service May 02, 2017. Progress Note ID Consult Dictated #[id number] A/P: 1. Infected BKA Amp/necrotizing fasciitis -Will change to po levaquin -for vac today -follow OR cultures -Will be d/c to wound care in [place] -Will follow, thank you
--- NOTE | 2017-05-02 11:34 | INFECT. DISEASE CONSULTATION ---
DATE OF CONSULTATION: 05/02/2017 REQUESTING PHYSICIAN: Dr. Healy. HISTORY OF PRESENT ILLNESS: This is a 66-year-old gentleman who was admitted for worsening skin breakdown of a previous left [id number] amputation. He does have a history of spina bifida and did undergo [id number] amputation in 1984 which has been stable. He was at a local rehab, and when he had breakdown of the skin, he was put on Keflex and doxy; however, he had continued worsening of his breakdown and was subsequently brought to the hospital. He previously was being cared for at a wound care center in [place]. He states he has had wound VACs in the past but nothing recently. He did have a superficial culture in the ER which grew pseudomonas resistant to imipenem only. He also had blood cultures in the ER which are negative to date. A urinalysis in the ER had greater than 30 WBCs and a urine culture also is growing pseudomonas. He did ended up going to the operating room for debridement on 04/30/2017. At that time, he was found to have a necrotic wound and also some findings of necrotizing fasciitis and did have extensive debridement. Intraoperative cultures from 04/30/2017 are growing again pseudomonas which is resistant to imipenem and intermediate to ciprofloxacin. Second intraoperative culture is growing pseudomonas and a second gram-negative abdoulaye which is yet to be identified. He has been on intravenous ciprofloxacin since admission to the hospital. He has been afebrile. He denies any pain. He denies any fevers or chills. He states he is eating well. He denies any chest pain, cough, nausea, vomiting, diarrhea or abdominal pain. He has no urinary symptoms. All remaining review of systems are reviewed and are unremarkable. PAST MEDICAL HISTORY: Significant for spina bifida. SURGICAL HISTORY: Significant for left BKA. FAMILY HISTORY: Noncontributory. SOCIAL HISTORY: Negative for tobacco use, alcohol use or drug use. ALLERGIES: HE HAS A LATEX ALLERGY. MEDICATIONS: Include Senokot, MiraLax, Protonix, subcu heparin, IV Cipro, Boost, multivitamins, vitamin C, zinc, folic acid, vitamin B1, temazepam, iron, Floranex, baclofen, Tylenol and Zofran. PHYSICAL EXAMINATION: VITAL SIGNS: He is afebrile, pulse 71, respiratory rate is 20, blood pressure is 108/68, oxygen saturation is 97% on room air. GENERAL: He is awake, alert and oriented x3. He is in no acute distress. HEENT: Mucous membranes are moist. Extraocular muscles are intact. HEART: Regular. LUNGS: Clear bilaterally. ABDOMEN: Soft, nontender, nondistended. EXTREMITIES: Examination of the left lower extremity reveals the dressing to be intact. A drain is in place with serosanguineous fluid. There is no erythema or tenderness. There is no purulent drainage. LABORATORY STUDIES: CBC today reveals a white blood cell count of 10.1, hemoglobin 8.3 and platelets are 329. Chemistry panel reveals sodium of 140, potassium 4.0, chloride 105, bicarb 28, BUN 15, creatinine 0.5, glucose is 79. Urinalysis again had greater than 30 WBCs and 1+ bacteria. Hep C antibody is negative. Multiple wound cultures are growing pseudomonas. A urine culture is also growing pseudomonas. Blood cultures from 04/27/2017 are no growth to date. Bone scan was negative for osteomyelitis on 04/28/2017. ASSESSMENT AND PLAN: Necrotic left adcxu-doq-fpuy amputation wound with pseudomonas. At this time, he will be changed to oral Levaquin. I will await the identification of the second gram-negative abdoulaye from the intraoperative cultures. If this is also sensitive to Levaquin, he will not require PICC line and can be treated with oral antibiotics. He states that he would like to return to the wound care center in [place] for additional care once he is discharged from the hospital. I would give a tentative course of 4 weeks of antibiotics but certainly this can be followed on an outpatient basis with his wound care center in [place]. Thank you for this consultation. YUNG
--- NOTE | 2017-05-02 15:27 | Family Medicine Progress Note ---
Progress Note Date of Service May 02, 2017. Subjective Pt evaluation today including: conversation w/ patient, physical exam, chart review, lab review Pain: denies any discomfort this AM PO Intake: tolerating Voiding: washburn catheter in place This AM pt reports continued constipation for which he was given some miralax this AM. Reports R leg spasm. Tolerating PO Constitutional: No fever Respiratory: No shortness of breath Cardiovascular: No chest pain Abdomen: + constipation, No pain Musculoskeletal: + problem reported (R leg spasm) Neurologic: + problem reported (bilateral paraplegia) Skin: + new/changing skin lesions Medications Current Inpatient Medications Medications (Trade) Dose Ordered Sig/Stephen Route Start Time Stop Time Status Last Admin Dose Admin Acetaminophen 100 ml @ 400 mls/hr Q8H PRN IV 04/27/17 12:45 05/27/17 12:44 Ondansetron HCl (Zofran Inj) 4 mg Q6H PRN IV 04/27/17 12:45 05/27/17 12:44 Acetaminophen (Tylenol Tab) 650 mg Q6H PRN PO 04/27/17 13:00 05/27/17 12:59 04/30/17 13:00 650 MG Baclofen (Lioresal Tab) 20 mg TID PO 04/27/17 14:00 05/27/17 13:59 05/02/17 15:01 20 MG Folic Acid (Folvite Tab) 1 mg DAILY PO 04/28/17 08:00 05/28/17 08:59 05/02/17 08:16 1 MG Temazepam (Restoril Cap) 7.5 mg HS PO 04/27/17 21:00 05/27/17 20:59 05/01/17 22:09 7.5 MG Thiamine HCl (Vitamin B-1 Tab) 50 mg DAILY PO 04/28/17 08:00 05/28/17 08:59 05/02/17 08:15 50 MG Ferrous Sulfate (Feosol Tab) 325 mg BIDM PO 04/27/17 17:00 05/27/17 17:59 05/02/17 08:16 325 MG Lactobacillus Acidophilus (Floranex Tab) 4 tab TIDM PO 04/27/17 17:00 05/27/17 17:59 05/02/17 12:12 4 TAB Multivitamins/ Minerals (Multivitamin W/ Minerals Tab) 1 tab QAM PO 04/29/17 08:00 05/29/17 07:59 05/02/17 08:15 1 TAB Ascorbic Acid (Vitamin C Tab) 500 mg BID PO 04/28/17 20:00 05/28/17 19:59 05/02/17 08:15 500 MG Zinc Sulfate (Zinc Sulfate Cap) 220 mg QAM PO 04/28/17 17:30 05/12/17 17:29 05/02/17 08:15 220 MG Enteral Nutritional Formula (Boost) 1 can TIDM PO 04/29/17 12:00 05/29/17 11:59 05/02/17 12:12 1 CAN Pantoprazole Sodium (Protonix Tab) 40 mg DAILY@0630 PO 05/02/17 06:30 05/28/17 08:59 05/02/17 05:59 40 MG Senna (Senokot Tab) 17.2 mg QAM PO 05/02/17 08:00 06/01/17 07:59 05/02/17 08:19 17.2 MG Polyethylene (Miralax Powder Packet) 17 gm BID PO 05/02/17 08:00 06/01/17 07:59 05/02/17 08:19 17 GM Heparin Sodium (Porcine) (Heparin Sq 5000 Unit/0.5ml) 5,000 unit Q8 SQ 05/01/17 22:00 05/31/17 21:59 05/02/17 14:57 5,000 UNIT Levofloxacin (Levaquin Tab) 500 mg DAILY@11 PO 05/03/17 11:00 06/14/17 10:59 Objective Vital Signs Date Time Temp Pulse Resp B/P (MAP) Pulse Ox O2 Delivery O2 Flow Rate FiO2 05/02/17 08:15 Room Air 05/02/17 07:14 37.1 71 20 108/68 (81) 97 Room Air 05/02/17 00:34 Room Air 05/01/17 23:33 37.3 83 20 103/65 (78) 96 Room Air 05/01/17 21:19 Room Air Physical Exam General Appearance: no apparent distress Eyes: normal inspection Neck: supple Respiratory/Chest: lungs clear, normal breath sounds Cardiovascular: regular rate, rhythm, no edema Abdomen: normal bowel sounds, non tender Extremities: + pertinent finding (L BKA - dressing and hemovac in place) Skin: + pertinent finding (sacral decubitis ulcer and L lateral hip ulcer could not be visualized) Laboratory Results 05/02/17 06:05 05/02/17 06:05 Test 05/02/17 06:05 Red Blood Count 3.18 M/uL (4.7-6.1) Mean Corpuscular Volume 85.8 fL (80-100) Mean Corpuscular Hemoglobin 26.1 pg (25-34) Mean Corpuscular Hemoglobin Concent 30.4 g/dl (32-36) RDW Standard Deviation 67.7 fL (36.4-46.3) RDW Coefficient of Variation 21.5 % (11.5-14.5) Mean Platelet Volume 10.0 fL (7.4-10.4) Anion Gap 7.0 mmol/L (3-11) Est Creatinine Clear Calc Drug Dose 113.1 ml/min Estimated GFR () 123.1 Estimated GFR (Non- 106.2 BUN/Creatinine Ratio 26.2 (10-20) Calcium Level 9.1 mg/dl (8.5-10.1) Assessment and Plan 66yo male with hx of spina bifida and L BKA in 1984 presented with worsening skin breakdown despite being on Keflex while at [facility] rehab for recent diagnosis of urosepsis at [facility]. Currently AFVSS. Sepsis with Pseudomonas bacteremia sec to Left BKA stump infection/ulcers -POD #2 s/p revision of L BKA with resection of approximately 4-5 inches of distal tibia and fibula and debridement of skin, fascia and ulcerations on the left lower thigh and leg by Dr. Grady -Intra-op cultures growing GNR and pseudomonas -Switched IV cipro to PO Levaquin - ID consulted- recommends total of 4 wks of abx -Continue 2 week course of vitamin C and zinc to promote wound healing. -Wound vac being placed today -Follow OR cultures (if 2nd GNR susceptible to levaquin hold off on PICC) -D/c to SNF in [place] (lives there - PCP - Dr. Bueno) Moderate protein calorie malnutrition -boost, and MVI Anemia of chronic disease - obtained records from [facility] - baseline Hb about 9-10. Hb now 8.3. Iron sat on iron studies <20% -S/p IV venofer 300mg IV x 1 on 05/01 -Has also received IV iron in the last few months at [facility] -Follow CBC Pseudomonas Bacteruria - from bacteremia -d/christiano washburn today and replaced with new washburn -Levaquin PO should cover Paraplegic - 2nd to spina bifida -stable Deep tissue injury to left posterior thigh/? Decub ulcer - improved Fungal infection to right buttocks and b/l groin along with sacral decub -Continue antifungals and special air bed Hx of PAD - records obtained from [facility] - had NORMAL arterial dopplers of both legs on 04/18/17. GERD -PPI qam. DVT prophylaxis -heparin TID. Possible discharge to [facility] in [place] Resident Involvement: Resident Care Provided Care Provided: Adult Hospital Medicine Reviewed: Pt Seen/Exam by Me History denies any complains comfortable in bed. wanting to have his lunch. Constitutional: denies: fever Respiratory: negative: short of breath Cardiovascular: denies chest pain General Appearance: no apparent distress Respiratory: lungs clear, no respiratory distress Cardiovascular: regular rate, rhythm Extremities: other (left BKA. stump with dressing) Neurologic/Psychiatric: alert, oriented x 3 Assessment/Plan Resident Physician Supervision Note: I independently interviewed and examined the patient and verified the ellis history and physical, reviewed labs and image studies, discussed the case with the resident Dr. Pandey and agree with the findings and care plan.
[2017-05-02 16:21] VITALS: BP 104/66; PULSE 79; TEMP 37; O2SAT 98
[2017-05-02] MEDS: TEMAZEPAM 7.5 MG CAP PO SCH (21:45)
[2017-05-02 23:09] VITALS: BP 99/62; PULSE 88; TEMP 37; O2SAT 95
[2017-05-03] MEDS: ALUMINUM/MAGNESIUM/SIMETH (MAALOX MAX) 30 ML UDC PO PRN (00:22)
[2017-05-03] MEDS: HEPARIN SOD 5000 UNIT/0.5 ML CARP SQ SCH ×3 (05:40→22:11)
[2017-05-03] MEDS: PANTOprazole SOD 40 MG TAB PO SCH (05:40)
[2017-05-03 05:46] LABS: HEMATOCRIT 27.7 % (42-52); MEAN CELL VOLUME 86.3 fL (80-100); MEAN CORPUSCULAR HEMOGLOBIN 26.2 pg (25-34); MEAN CORPUSCULAR HGB CONC 30.3 g/dl (32-36); MEAN PLATELET VOLUME 9.9 fL (7.4-10.4); PLATELET COUNT 329 K/uL (130-400); RED BLOOD COUNT 3.21 M/uL (4.7-6.1); WHITE BLOOD COUNT 11.66 K/uL (4.8-10.8)
[2017-05-03] MEDS: ACETAMINOPHEN 325 MG TAB PO PRN (05:46)
[2017-05-03 07:48] VITALS: BP 108/68; PULSE 64; TEMP 37.1; O2SAT 97
[2017-05-03] MEDS: POLYETHYLENE (MIRALAX) 17 GM PACK PO SCH ×2 (09:05→17:15)
--- NOTE | 2017-05-03 10:27 | Family Medicine Progress Note ---
Progress Note Date of Service May 03, 2017. Subjective Pt evaluation today including: conversation w/ patient, physical exam, chart review, lab review Pain: denies any discomfort this AM PO Intake: tolerating Voiding: washburn catheter in place This AM he reports 1 small BM last night but still feels full hoping to go today since he has continued to get stool softener. Otherwise denies any pain. Tolerating PO intake Constitutional: No fever Musculoskeletal: + problem reported (R leg spasm) Male : + problem reported (groin fungal infection) Neurologic: No problem reported Skin: + new/changing skin lesions Medications Current Inpatient Medications Medications (Trade) Dose Ordered Sig/Stephen Route Start Time Stop Time Status Last Admin Dose Admin Acetaminophen 100 ml @ 400 mls/hr Q8H PRN IV 04/27/17 12:45 05/27/17 12:44 Ondansetron HCl (Zofran Inj) 4 mg Q6H PRN IV 04/27/17 12:45 05/27/17 12:44 Acetaminophen (Tylenol Tab) 650 mg Q6H PRN PO 04/27/17 13:00 05/27/17 12:59 05/03/17 05:46 650 MG Baclofen (Lioresal Tab) 20 mg TID PO 04/27/17 14:00 05/27/17 13:59 05/02/17 20:19 20 MG Folic Acid (Folvite Tab) 1 mg DAILY PO 04/28/17 08:00 05/28/17 08:59 05/02/17 08:16 1 MG Temazepam (Restoril Cap) 7.5 mg HS PO 04/27/17 21:00 05/27/17 20:59 05/02/17 21:45 7.5 MG Thiamine HCl (Vitamin B-1 Tab) 50 mg DAILY PO 04/28/17 08:00 05/28/17 08:59 05/02/17 08:15 50 MG Ferrous Sulfate (Feosol Tab) 325 mg BIDM PO 04/27/17 17:00 05/27/17 17:59 05/02/17 17:18 325 MG Lactobacillus Acidophilus (Floranex Tab) 4 tab TIDM PO 04/27/17 17:00 05/27/17 17:59 05/02/17 17:18 4 TAB Multivitamins/ Minerals (Multivitamin W/ Minerals Tab) 1 tab QAM PO 04/29/17 08:00 05/29/17 07:59 05/02/17 08:15 1 TAB Ascorbic Acid (Vitamin C Tab) 500 mg BID PO 04/28/17 20:00 05/28/17 19:59 05/02/17 20:18 500 MG Zinc Sulfate (Zinc Sulfate Cap) 220 mg QAM PO 04/28/17 17:30 05/12/17 17:29 05/02/17 08:15 220 MG Enteral Nutritional Formula (Boost) 1 can TIDM PO 04/29/17 12:00 05/29/17 11:59 05/02/17 17:17 1 CAN Pantoprazole Sodium (Protonix Tab) 40 mg DAILY@0630 PO 05/02/17 06:30 05/28/17 08:59 05/03/17 05:40 40 MG Senna (Senokot Tab) 17.2 mg QAM PO 05/02/17 08:00 06/01/17 07:59 05/02/17 08:19 17.2 MG Polyethylene (Miralax Powder Packet) 17 gm BID PO 05/02/17 08:00 06/01/17 07:59 05/03/17 09:05 17 GM Heparin Sodium (Porcine) (Heparin Sq 5000 Unit/0.5ml) 5,000 unit Q8 SQ 05/01/17 22:00 05/31/17 21:59 05/03/17 05:40 5,000 UNIT Levofloxacin (Levaquin Tab) 500 mg DAILY@11 PO 05/03/17 11:00 06/14/17 10:59 Al Hydrox/Mg Hydrox/Simethicone (Maalox Max Susp) 15 ml Q6H PRN PO 05/03/17 00:15 06/02/17 00:14 05/03/17 00:22 15 ML Objective Vital Signs Date Time Temp Pulse Resp B/P (MAP) Pulse Ox O2 Delivery O2 Flow Rate FiO2 05/03/17 07:48 37.1 64 14 108/68 (81) 97 Room Air 05/03/17 00:00 Room Air 05/02/17 23:09 37.0 88 20 99/62 (74) 95 Room Air 05/02/17 16:30 Room Air 05/02/17 16:21 37.0 79 18 104/66 (79) 98 Room Air Physical Exam General Appearance: no apparent distress Eyes: normal inspection Neck: supple Respiratory/Chest: lungs clear, normal breath sounds Cardiovascular: regular rate, rhythm Neurologic/Psychiatric: alert, + motor weakness (paraplegia) Skin: + pertinent finding (L BKA - stump covered with dressing and hemovac in place; unable to visualize groin fungal infection, sacral decubiitis and L lateral hip ulcer due to positioning ) Laboratory Results 05/03/17 05:18 Test 05/03/17 05:18 Red Blood Count 3.21 M/uL (4.7-6.1) Mean Corpuscular Volume 86.3 fL (80-100) Mean Corpuscular Hemoglobin 26.2 pg (25-34) Mean Corpuscular Hemoglobin Concent 30.3 g/dl (32-36) RDW Standard Deviation 67.0 fL (36.4-46.3) RDW Coefficient of Variation 21.5 % (11.5-14.5) Mean Platelet Volume 9.9 fL (7.4-10.4) Assessment and Plan 66yo male with hx of spina bifida and L BKA in 1984 who presented with worsening skin breakdown despite being on Keflex while at [facility] rehab for recent diagnosis of urosepsis at [place]. Currently AFVSS. Sepsis with Pseudomonas bacteremia sec to Left BKA stump infection/ulcers -POD #3 s/p revision of L BKA with resection of approximately 4-5 inches of distal tibia and fibula and debridement of skin, fascia and ulcerations on the left lower thigh and leg by Dr. Grady -Intra-op cultures growing GNR and pseudomonas -Switched IV cipro to PO Levaquin - ID consulted- recommends total of 4 wks of abx -Continue 2 week course of vitamin C and zinc to promote wound healing. -Wound vac ordered per ortho -however wound care nurse does not believe pt is a good candidate for wound vac -will confirm plan with ortho -Follow OR cultures (if 2nd GNR susceptible to levaquin hold off on PICC) -D/c to SNF in [place] (lives there - PCP - Dr. Bueno) Moderate protein calorie malnutrition -boost, and MVI Anemia of chronic disease - obtained records from [facility] - baseline Hb about 9-10. Hb now stable at 8.4. 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 Decub ulcer - improved Fungal infection to right buttocks and b/l groin along with sacral decub -Continue antifungals and special air bed Hx of PAD - records obtained from [facility] - had NORMAL arterial dopplers of both legs on 04/18/17. GERD -PPI qam. DVT prophylaxis -heparin TID. Possible discharge to [facility] in [place] - fiance working on paperwork per social work Continued [facility] stay due to: other (wound vac placement and placement at [facility]) Discharge planning: nursing home facility Resident Involvement: Resident Care Provided Care Provided: Adult Hospital Medicine Reviewed: Pt Seen/Exam by Me History no concerns overnight. denies any chest pain, shortness of breath. Constitutional: denies: fever Respiratory: negative: short of breath Cardiovascular: denies chest pain Gastrointestinal/Abdominal: negative: abdominal pain General Appearance: no apparent distress Respiratory: lungs clear, no respiratory distress Cardiovascular: regular rate, rhythm Extremities: other (left BKA stump in dressing) Neurologic/Psychiatric: alert, oriented x 3 Assessment/Plan Resident Physician Supervision Note: I independently interviewed and examined the patient and verified the ellis history and physical, reviewed labs and image studies, discussed the case with the resident Dr. Pandey and agree with the findings and care plan.
[2017-05-03] MEDS: BOOST VANILLA PO SCH ×6 (11:01→17:17)
[2017-05-03] MEDS: FERROUS SULFATE 325 MG TAB PO SCH ×2 (11:02→17:16)
[2017-05-03] MEDS: LACTOBACILLUS ACIDOPHILUS (FLORANEX) TAB PO SCH ×3 (11:03→17:16)
[2017-05-03] MEDS: BACLOFEN TAB 20 MG TAB PO SCH ×3 (11:04→22:07)
[2017-05-03] MEDS: CEROVITE ADV FORMULA TAB PO SCH (11:04)
[2017-05-03] MEDS: SENNA 8.6 MG TAB PO SCH (11:05)
[2017-05-03] MEDS: ASCORBIC ACID 500 MG TAB PO SCH ×2 (11:05→22:07)
[2017-05-03] MEDS: THIAMINE HCL 50 MG TAB PO SCH (11:05)
[2017-05-03] MEDS: ZINC SULFATE 220 MG CAP PO SCH (11:06)
[2017-05-03] MEDS: LEVOFLOXACIN 500 MG TAB PO SCH (11:06)
[2017-05-03 11:21] VITALS: PULSE 72; TEMP 36.5; O2SAT 98
[2017-05-03 11:26] VITALS: BP 108/64; PULSE 72; TEMP 36.5; O2SAT 98
[2017-05-03 14:35] VITALS: BP 96/59; PULSE 73; TEMP 36.8; O2SAT 100
--- NOTE | 2017-05-03 14:41 | Progress Note ---
Subjective Date of Service: May 03, 2017. Subjective OR culture pending changed to levaquin, tolerating well. afebrile. no overnight events. Problem List Medical Problems: (1) Failure of outpatient treatment Status: Acute (2) Left leg cellulitis Status: Acute Objective Vital Signs Date Time Temp Pulse Resp B/P (MAP) Pulse Ox O2 Delivery O2 Flow Rate FiO2 05/03/17 14:35 36.8 73 16 96/59 (71) 100 Room Air 05/03/17 11:26 36.5 72 12 108/64 (79) 98 05/03/17 11:21 36.5 72 12 98 Room Air 05/03/17 11:13 Room Air 05/03/17 07:48 37.1 64 14 108/68 (81) 97 Room Air 05/03/17 00:00 Room Air 05/02/17 23:09 37.0 88 20 99/62 (74) 95 Room Air 05/02/17 16:30 Room Air 05/02/17 16:21 37.0 79 18 104/66 (79) 98 Room Air Laboratory Results Last 24 Hours Test 05/03/17 05:18 White Blood Count 11.66 K/uL Red Blood Count 3.21 M/uL Hemoglobin 8.4 g/dL Hematocrit 27.7 % Mean Corpuscular Volume 86.3 fL Mean Corpuscular Hemoglobin 26.2 pg Mean Corpuscular Hemoglobin Concent 30.3 g/dl RDW Standard Deviation 67.0 fL RDW Coefficient of Variation 21.5 % Platelet Count 329 K/uL Mean Platelet Volume 9.9 fL Assessment and Plan (1) Wound infection Assessment & Plan: continue levaquin, follow final cultures, pt to follow in [facility] upon d/c Continued [facility] stay due to: other (wound vac placement and placement at [facility]) Discharge planning: [facility] facility
--- NOTE | 2017-05-03 15:03 | Orthopedic Progress Note ---
Orthopedic Progress Note Date of Service May 03, 2017. Subjective Additional Notes: Patient is lying in bed awake and alert. He denies any pain in the left BKA stump. No new complaints today. States that wound care nurses were by and changed his dressing. Photos were taken of the wound. Objective capillary refill less than 2 sec. Current dressing is dry and intact. Hemovac drain was still in place and was removed easily by myself. Dressings were placed over the drain sites and a Kerlix wrap was placed around them. The dressing that was placed today by wound care was left intact. Date Time Temp Pulse Resp B/P (MAP) Pulse Ox O2 Delivery O2 Flow Rate FiO2 05/03/17 14:35 36.8 73 16 96/59 (71) 100 Room Air 05/03/17 11:26 36.5 72 12 108/64 (79) 98 05/03/17 11:21 36.5 72 12 98 Room Air 05/03/17 11:13 Room Air 05/03/17 07:48 37.1 64 14 108/68 (81) 97 Room Air 05/03/17 00:00 Room Air 05/02/17 23:09 37.0 88 20 99/62 (74) 95 Room Air 05/02/17 16:30 Room Air 05/02/17 16:21 37.0 79 18 104/66 (79) 98 Room Air Laboratory Results 24 Hours: Test 05/03/17 05:18 Hematocrit 27.7 % Hemoglobin 8.4 g/dL Assessment & Plan Assessment: POD #4 s/p revision amputation BKA Plan: Photos were reviewed by myself there were taken by wound care nursing. Patient has an area over the medial aspect of the stump that has some yellowish tinge to it. I discussed with Rosi De Los Santos today about possible use of wound vac which may or may not be a viable solution. I have been discussing the case with Dr. Grady about the possibility of a further debridement on the stump. I will consult Dr. Alvarado for wound care to give his input. I will also await Dr. Grady 's review the wound and decide if there is any further need for debridement. Continue antibiotics as per medicine/infectious disease team. Discharge Planning Discharge Planning: uncertain
--- NOTE | 2017-05-03 16:19 | Family Medicine Progress Note ---
Progress Note Date of Service May 03, 2017. Subjective Pt evaluation today including: conversation w/ patient, physical exam, chart review, lab review Pain: denies any discomfort this AM PO Intake: tolerating Voiding: washburn catheter in place This AM reports persistent but improved productive cough, sob, and edema. Continues to have some orthopnea - needed 2 pillows to sleep last night and dyspnea on exertion. Tolerating po intake. Washburn in place with concentrated/ dark urine Constitutional: No fever Respiratory: + cough, + sputum, + shortness of breath, + dyspnea on exertion Cardiovascular: + orthopnea, No chest pain Abdomen: No pain Musculoskeletal: + swelling (b/l LE) Neurologic: No problem reported
[2017-05-03] MEDS: TEMAZEPAM 7.5 MG CAP PO SCH (22:11)
[2017-05-03 23:06] VITALS: BP 104/70; PULSE 98; TEMP 37.1; O2SAT 97
[2017-05-04] MEDS: HEPARIN SOD 5000 UNIT/0.5 ML CARP SQ SCH ×3 (05:44→22:00)
[2017-05-04] MEDS: PANTOprazole SOD 40 MG TAB PO SCH (05:45)
[2017-05-04 06:11] LABS: HEMATOCRIT 30.5 % (42-52); MEAN CELL VOLUME 87.9 fL (80-100); MEAN CORPUSCULAR HEMOGLOBIN 25.9 pg (25-34); MEAN CORPUSCULAR HGB CONC 29.5 g/dl (32-36); MEAN PLATELET VOLUME 9.6 fL (7.4-10.4); PLATELET COUNT 321 K/uL (130-400); RED BLOOD COUNT 3.47 M/uL (4.7-6.1); WHITE BLOOD COUNT 10.92 K/uL (4.8-10.8)
[2017-05-04 07:27] VITALS: BP 106/71; PULSE 84; TEMP 36.9; O2SAT 99
[2017-05-04] MEDS: ASCORBIC ACID 500 MG TAB PO SCH ×2 (07:46→19:15)
[2017-05-04] MEDS: CEROVITE ADV FORMULA TAB PO SCH (07:46)
[2017-05-04] MEDS: THIAMINE HCL 50 MG TAB PO SCH (07:46)
[2017-05-04] MEDS: FERROUS SULFATE 325 MG TAB PO SCH ×2 (07:46→16:08)
[2017-05-04] MEDS: POLYETHYLENE (MIRALAX) 17 GM PACK PO SCH ×2 (07:46→19:15)
[2017-05-04] MEDS: BACLOFEN TAB 20 MG TAB PO SCH ×3 (07:47→19:15)
[2017-05-04] MEDS: ZINC SULFATE 220 MG CAP PO SCH (07:47)
[2017-05-04] MEDS: LACTOBACILLUS ACIDOPHILUS (FLORANEX) TAB PO SCH ×3 (07:47→16:08)
[2017-05-04] MEDS: SENNA 8.6 MG TAB PO SCH (07:47)
[2017-05-04] MEDS: BOOST VANILLA PO SCH ×6 (08:14→17:15)
[2017-05-04] MEDS: ACETAMINOPHEN 325 MG TAB PO PRN (08:59)
[2017-05-04] MEDS ORDERED: BISACODYL 10 MG SUPP PR PRN (10:00)
[2017-05-04] MEDS: LEVOFLOXACIN 500 MG TAB PO SCH (11:30)
--- NOTE | 2017-05-04 11:57 | Family Medicine Progress Note ---
Progress Note Date of Service May 04, 2017. Subjective Pt evaluation today including: conversation w/ patient, physical exam, chart review, lab review Pain: denies any discomfort this AM PO Intake: tolerating Voiding: washburn catheter in place This AM pt reports continued constipation and occasional spasm in R leg otherwise denies sob, cp, abdominal pn, n/v and headache. Tolerating PO intake. Reports gladis completed paperwork for [facility] and that he does not wish to go back to [facility] Constitutional: No fever Respiratory: No shortness of breath Cardiovascular: No chest pain Abdomen: + problem reported (constipation), No pain, No nausea, No vomiting Musculoskeletal: + problem reported (R leg occasional cramping), No joint pain Neurologic: No problem reported (denies dizziness) Medications Current Inpatient Medications Medications (Trade) Dose Ordered Sig/Stephen Route Start Time Stop Time Status Last Admin Dose Admin Acetaminophen 100 ml @ 400 mls/hr Q8H PRN IV 04/27/17 12:45 05/27/17 12:44 Ondansetron HCl (Zofran Inj) 4 mg Q6H PRN IV 04/27/17 12:45 05/27/17 12:44 Acetaminophen (Tylenol Tab) 650 mg Q6H PRN PO 04/27/17 13:00 05/27/17 12:59 05/04/17 08:59 650 MG Baclofen (Lioresal Tab) 20 mg TID PO 04/27/17 14:00 05/27/17 13:59 05/04/17 07:47 20 MG Folic Acid (Folvite Tab) 1 mg DAILY PO 04/28/17 08:00 05/28/17 08:59 05/04/17 07:47 1 MG Temazepam (Restoril Cap) 7.5 mg HS PO 04/27/17 21:00 05/27/17 20:59 05/03/17 22:11 7.5 MG Thiamine HCl (Vitamin B-1 Tab) 50 mg DAILY PO 04/28/17 08:00 05/28/17 08:59 05/04/17 07:46 50 MG Ferrous Sulfate (Feosol Tab) 325 mg BIDM PO 04/27/17 17:00 05/27/17 17:59 05/04/17 07:46 325 MG Lactobacillus Acidophilus (Floranex Tab) 4 tab TIDM PO 04/27/17 17:00 05/27/17 17:59 05/04/17 11:30 4 TAB Multivitamins/ Minerals (Multivitamin W/ Minerals Tab) 1 tab QAM PO 04/29/17 08:00 05/29/17 07:59 05/04/17 07:46 1 TAB Ascorbic Acid (Vitamin C Tab) 500 mg BID PO 04/28/17 20:00 05/28/17 19:59 05/04/17 07:46 500 MG Zinc Sulfate (Zinc Sulfate Cap) 220 mg QAM PO 04/28/17 17:30 05/12/17 17:29 05/04/17 07:47 220 MG Enteral Nutritional Formula (Boost) 1 can TIDM PO 04/29/17 12:00 05/29/17 11:59 05/04/17 08:14 1 CAN Pantoprazole Sodium (Protonix Tab) 40 mg DAILY@0630 PO 05/02/17 06:30 05/28/17 08:59 05/04/17 05:45 40 MG Senna (Senokot Tab) 17.2 mg QAM PO 05/02/17 08:00 06/01/17 07:59 05/04/17 07:47 17.2 MG Polyethylene (Miralax Powder Packet) 17 gm BID PO 05/02/17 08:00 06/01/17 07:59 05/04/17 07:46 17 GM Heparin Sodium (Porcine) (Heparin Sq 5000 Unit/0.5ml) 5,000 unit Q8 SQ 05/01/17 22:00 05/31/17 21:59 05/04/17 05:44 5,000 UNIT Levofloxacin (Levaquin Tab) 500 mg DAILY@11 PO 05/03/17 11:00 06/14/17 10:59 05/04/17 11:30 500 MG Al Hydrox/Mg Hydrox/Simethicone (Maalox Max Susp) 15 ml Q6H PRN PO 05/03/17 00:15 06/02/17 00:14 05/03/17 00:22 15 ML Bisacodyl (Dulcolax Supp) 10 mg DAILY PRN PA 05/04/17 10:00 06/03/17 09:59 05/04/17 10:42 10 MG Objective Vital Signs Date Time Temp Pulse Resp B/P (MAP) Pulse Ox O2 Delivery O2 Flow Rate FiO2 05/04/17 08:02 Room Air 05/04/17 08:00 Room Air 05/04/17 07:27 36.9 84 106/71 (83) 99 Room Air 05/04/17 01:00 Room Air 05/03/17 23:06 37.1 98 18 104/70 (81) 97 Room Air 05/03/17 19:45 Room Air 05/03/17 14:35 36.8 73 16 96/59 (71) 100 Room Air Physical Exam General Appearance: no apparent distress Eyes: normal inspection Neck: supple Respiratory/Chest: lungs clear, normal breath sounds Cardiovascular: regular rate, rhythm, no edema Abdomen: normal bowel sounds, non tender, soft Extremities: no pedal edema, + pertinent finding (L BKA - stump dressing and hemovac intact) Neurologic/Psychiatric: + motor weakness (paraplegic) Skin: + pertinent finding (groin and buttocks fungal infection/erythema based on wound images posted but could not be visualized) Laboratory Results 05/04/17 05:32 Test 05/04/17 05:32 Red Blood Count 3.47 M/uL (4.7-6.1) Mean Corpuscular Volume 87.9 fL (80-100) Mean Corpuscular Hemoglobin 25.9 pg (25-34) Mean Corpuscular Hemoglobin Concent 29.5 g/dl (32-36) RDW Standard Deviation 68.8 fL (36.4-46.3) RDW Coefficient of Variation 21.9 % (11.5-14.5) Mean Platelet Volume 9.6 fL (7.4-10.4) Assessment and Plan 66yo male with hx of spina bifida and L BKA in 1984 who presented with worsening skin breakdown despite being on Keflex while at [facility] rehab for recent diagnosis of urosepsis at [place]. Currently AFVSS. Awaiting decision on further debridement by ortho and wound vac placement as well as longterm facility placement determination. Sepsis with Pseudomonas bacteremia sec to Left BKA stump infection/ulcers -POD #5 s/p revision of L BKA with resection of approximately 4-5 inches of distal tibia and fibula and debridement of skin, fascia and ulcerations on the left lower thigh and leg by Dr. Grady -Intra-op cultures growing GNR and pseudomonas -Switched IV cipro to PO Levaquin - ID consulted- recommends total of 4 wks of abx -Continue 2 week course of vitamin C and zinc to promote wound healing. -Wound vac ordered per ortho which may or may not be a viable solution -Also area over medial aspect of stump with yellowish tinge which may need further debridement. -Awaiting input from Dr. Alvarado from wound care and Dr. Grady -Follow final OR cultures (if 2nd GNR susceptible to levaquin hold off on PICC) -D/c to SNF in [place] (lives there - PCP - Dr. Bueno) Moderate protein calorie malnutrition -boost, and MVI Anemia of chronic disease - obtained records from [facility] - baseline Hb about 9-10. Hb now stable at 9 and back to baseline. 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 Decub ulcer - improved Fungal infection to right buttocks and b/l groin along with sacral decub -Continue antifungals and special air bed Hx of PAD - records obtained from [facility] - had NORMAL arterial dopplers of both legs on 04/18/17. GERD -PPI qam. DVT prophylaxis -heparin TID. Possible discharge to [facility] in [place] - gladis submitted paperwork per social work Continued [facility] stay due to: other (waiting for wound vac and placement) Discharge planning: longterm facility Resident Involvement: Resident Care Provided Care Provided: Adult Hospital Medicine Reviewed: Pt Seen/Exam by Me History no concerns overnight continues to have pain in the buttock area with sitting up concerned about his bowels. would like to use suppository to have a better control over his bowels compared to taking stool softners which gives him loose stools. Constitutional: denies: fever Respiratory: negative: short of breath Cardiovascular: denies chest pain Gastrointestinal/Abdominal: negative: abdominal pain General Appearance: no apparent distress (comfortable in bed ) Respiratory: lungs clear (anteriorly), no respiratory distress Cardiovascular: regular rate, rhythm Gastrointestinal: soft Extremities: other (left BKA - stump in dressing) Neurologic/Psychiatric: alert, oriented x 3 Skin Characteristics: warm/dry Assessment/Plan Resident Physician Supervision Note: I independently interviewed and examined the patient and verified the ellis history and physical, reviewed labs and image studies, discussed the case with the resident Dr. Pandey and agree with the findings and care plan.
[2017-05-04] MEDS ORDERED: NURSING VERBAL MED ORDER ONE (12:15)
[2017-05-04] MEDS: COLLAGENASE OINT 30 GM TUBE EXT SCH (14:11)
--- NOTE | 2017-05-04 14:22 | Progress Note ---
Subjective Date of Service: May 04, 2017. Subjective wound culture with pseudomonas and acinetobacter, both sensitive to levaquin, remains on this. possible to d/c to snf in [place]. afebrile. tolerating abx. no overnight events Problem List Medical Problems: (1) Failure of outpatient treatment Status: Acute (2) Left leg cellulitis Status: Acute Objective Vital Signs Date Time Temp Pulse Resp B/P (MAP) Pulse Ox O2 Delivery O2 Flow Rate FiO2 05/04/17 08:02 Room Air 05/04/17 08:00 Room Air 05/04/17 07:27 36.9 84 106/71 (83) 99 Room Air 05/04/17 01:00 Room Air 05/03/17 23:06 37.1 98 18 104/70 (81) 97 Room Air 05/03/17 19:45 Room Air 05/03/17 14:35 36.8 73 16 96/59 (71) 100 Room Air Laboratory Results Last 24 Hours Test 05/04/17 05:32 White Blood Count 10.92 K/uL Red Blood Count 3.47 M/uL Hemoglobin 9.0 g/dL Hematocrit 30.5 % Mean Corpuscular Volume 87.9 fL Mean Corpuscular Hemoglobin 25.9 pg Mean Corpuscular Hemoglobin Concent 29.5 g/dl RDW Standard Deviation 68.8 fL RDW Coefficient of Variation 21.9 % Platelet Count 321 K/uL Mean Platelet Volume 9.6 fL Assessment and Plan (1) Wound infection Assessment & Plan: continue levaquin, would give 4 weeks. will need follow with surgery and wound center, has expressed that he would like [place] [facility]. ok for d/c when otherwise stable. Continued [facility] stay due to: other (waiting for wound vac and placement) [facility]
[2017-05-04 14:44] VITALS: BP 100/62; PULSE 79; TEMP 36.5; O2SAT 98
--- NOTE | 2017-05-04 15:18 | Orthopedic Progress Note ---
Orthopedic Progress Note Date of Service May 04, 2017. Subjective Additional Notes: Patient lying in bed and appears comfortable. States that the nurse from wound care came in and changed his dressing today. No new complaints. Objective Dressings are intact on left BKA stump and left in place. Date Time Temp Pulse Resp B/P (MAP) Pulse Ox O2 Delivery O2 Flow Rate FiO2 05/04/17 14:44 36.5 79 18 100/62 (75) 98 Room Air 05/04/17 08:02 Room Air 05/04/17 08:00 Room Air 05/04/17 07:27 36.9 84 106/71 (83) 99 Room Air 05/04/17 01:00 Room Air 05/03/17 23:06 37.1 98 18 104/70 (81) 97 Room Air 05/03/17 19:45 Room Air Laboratory Results 24 Hours: Test 05/04/17 05:32 Hematocrit 30.5 % Hemoglobin 9.0 g/dL Assessment & Plan Assessment: POD #5 s/p revision amputation BKA Plan: Dressing change today by Rosi De Los Santos. Patient was seen by Dr. Alvarado and currently the wound is not good for wound vac. We will continue dressing changes with use of Santyl. Will recheck wound tomorrow and decide whether further surgery is needed. Continue antibiotics as per medicine/infectious disease team. Discharge Planning Discharge Planning: uncertain
[2017-05-04 16:00] VITALS: O2SAT 98
[2017-05-04] MEDS: TEMAZEPAM 7.5 MG CAP PO SCH (21:58)
[2017-05-05 00:10] VITALS: BP 108/70; PULSE 77; TEMP 37; O2SAT 97
[2017-05-05 05:57] LABS: HEMATOCRIT 30.2 % (42-52); MEAN CELL VOLUME 87.3 fL (80-100); MEAN CORPUSCULAR HEMOGLOBIN 25.4 pg (25-34); MEAN CORPUSCULAR HGB CONC 29.1 g/dl (32-36); MEAN PLATELET VOLUME 9.4 fL (7.4-10.4); PLATELET COUNT 314 K/uL (130-400); RED BLOOD COUNT 3.46 M/uL (4.7-6.1); WHITE BLOOD COUNT 9.03 K/uL (4.8-10.8)
[2017-05-05 06:36] LABS: CALCIUM 9.2 mg/dl (8.5-10.1); CREATININE 0.54 mg/dl (0.60-1.40); POTASSIUM 4.2 mmol/L (3.5-5.1)
[2017-05-05] MEDS: HEPARIN SOD 5000 UNIT/0.5 ML CARP SQ SCH ×3 (06:38→21:28)
[2017-05-05] MEDS: PANTOprazole SOD 40 MG TAB PO SCH (06:38)
[2017-05-05 07:38] VITALS: BP 96/64; PULSE 72; TEMP 36.9; O2SAT 96
--- NOTE | 2017-05-05 08:16 | Wound Consultation: Inpatient ---
Wound Consultation Date of Consultation: May 04, 2017. Attending Physician: Sangeeta Healy M.D. Reason for Consultation: Post operative wound dehiscence History of Present Illness The patient was recently admitted one week ago due to a breakdown of skin at the postoperative site of a BKA. Patient had undergone debridement and surgical revision 2 days prior. Patient currently is denying any significant pain at the site. Patient states he has noticed some increased drainage. Patient denies any fever chills or night sweats. Patient denies any chest pain shortness of breath abdominal discomfort nausea or vomiting. Social History Smoking Status: Never Smoker Smokeless Tobacco Use: No Alcohol Use: none Drug Use: none Housing Status: [facility] Occupation Status: disabled Allergies Coded Allergies: Latex1 -Allergic Contact Dermititis (Unverified Allergy, Unknown, ., 04/27) Home Medications Scheduled Acetic Acid (Acetic Acid 0.25%), 1 APPLN TOP BID Baclofen (Baclofen), 1 TAB PO TID Cephalexin Monohydrate (Keflex), 500 MG PO QID Doxycycline Hyclate (Doxycycline Hyclate), 1 TAB PO BID Ferrous Sulfate (Kp Ferrous Sulfate), 1 TAB PO BID Folic Acid (Folvite), 1 MG PO DAILY Nutritional Supplements (Boost), 1 BOX PO TID Pantoprazole (Protonix), 40 MG PO DAILY Probiotic Product (Probiotic), 1 CAP PO BID Temazepam (Restoril), 7.5 MG PO HS Thiamine Hcl (Vitamin B-1), 0.5 TAB PO DAILY Scheduled PRN Acetaminophen (Tylenol), 650 MG PO for Mild Pain Melatonin (Kp Melatonin), 1 TAB PO HS PRN for Sleep Inpatient Medications Current Inpatient Medications Medications (Trade) Dose Ordered Sig/Stephen Route Start Time Stop Time Status Last Admin Dose Admin Acetaminophen 100 ml @ 400 mls/hr Q8H PRN IV 04/27/17 12:45 05/27/17 12:44 Ondansetron HCl (Zofran Inj) 4 mg Q6H PRN IV 04/27/17 12:45 05/27/17 12:44 Acetaminophen (Tylenol Tab) 650 mg Q6H PRN PO 04/27/17 13:00 05/27/17 12:59 05/04/17 08:59 650 MG Baclofen (Lioresal Tab) 20 mg TID PO 04/27/17 14:00 05/27/17 13:59 05/04/17 19:15 20 MG Folic Acid (Folvite Tab) 1 mg DAILY PO 04/28/17 08:00 05/28/17 08:59 05/04/17 07:47 1 MG Temazepam (Restoril Cap) 7.5 mg HS PO 04/27/17 21:00 05/27/17 20:59 05/04/17 21:58 7.5 MG Thiamine HCl (Vitamin B-1 Tab) 50 mg DAILY PO 04/28/17 08:00 05/28/17 08:59 05/04/17 07:46 50 MG Ferrous Sulfate (Feosol Tab) 325 mg BIDM PO 04/27/17 17:00 05/27/17 17:59 05/04/17 16:08 325 MG Lactobacillus Acidophilus (Floranex Tab) 4 tab TIDM PO 04/27/17 17:00 05/27/17 17:59 05/04/17 16:08 4 TAB Multivitamins/ Minerals (Multivitamin W/ Minerals Tab) 1 tab QAM PO 04/29/17 08:00 05/29/17 07:59 05/04/17 07:46 1 TAB Ascorbic Acid (Vitamin C Tab) 500 mg BID PO 04/28/17 20:00 05/28/17 19:59 05/04/17 19:15 500 MG Zinc Sulfate (Zinc Sulfate Cap) 220 mg QAM PO 04/28/17 17:30 05/12/17 17:29 05/04/17 07:47 220 MG Enteral Nutritional Formula (Boost) 1 can TIDM PO 04/29/17 12:00 05/29/17 11:59 05/04/17 17:15 1 CAN Pantoprazole Sodium (Protonix Tab) 40 mg DAILY@0630 PO 05/02/17 06:30 05/28/17 08:59 05/05/17 06:38 40 MG Senna (Senokot Tab) 17.2 mg QAM PO 05/02/17 08:00 06/01/17 07:59 05/04/17 07:47 17.2 MG Polyethylene (Miralax Powder Packet) 17 gm BID PO 05/02/17 08:00 06/01/17 07:59 05/04/17 19:15 17 GM Heparin Sodium (Porcine) (Heparin Sq 5000 Unit/0.5ml) 5,000 unit Q8 SQ 05/01/17 22:00 05/31/17 21:59 05/05/17 06:38 5,000 UNIT Levofloxacin (Levaquin Tab) 500 mg DAILY@11 PO 05/03/17 11:00 06/14/17 10:59 05/04/17 11:30 500 MG Al Hydrox/Mg Hydrox/Simethicone (Maalox Max Susp) 15 ml Q6H PRN PO 05/03/17 00:15 06/02/17 00:14 05/03/17 00:22 15 ML Bisacodyl (Dulcolax Supp) 10 mg DAILY PRN ND 05/04/17 10:00 06/03/17 09:59 05/04/17 10:42 10 MG Collagenase (Santyl Oint) 1 appln DAILY EXT 05/04/17 08:00 06/03/17 07:59 05/04/17 14:11 1 APPLN Physical Exam Date Time Temp Pulse Resp B/P (MAP) Pulse Ox O2 Delivery O2 Flow Rate FiO2 05/05/17 07:38 36.9 72 14 96/64 (75) 96 Room Air 05/05/17 00:10 37.0 77 18 108/70 (83) 97 Room Air 05/05/17 00:10 Room Air 05/04/17 19:38 Room Air 05/04/17 16:00 98 Room Air 05/04/17 14:44 36.5 79 18 100/62 (75) 98 Room Air 05/04/17 08:02 Room Air General: The patient is lying in a hospital bed in no distress. Alert, cooperative and appropriate to all questions. HEENT: Pupils equal and reactive to light. Sclera clear, EOM intact. Neck: Supple, No JVD noted Chest: CTA in all [place]. No deformity Heart: RRR without murmurs, S3, S4, thrills, rubs or heaves Extremities: Postoperative incision is noted in the left BKA A site. The incision measures 27 cm with sutures present. There is an open area of dehiscence measuring 6 x 13 x 0.3 cm. There is Central eschar and slough present at this site. There is no active bleeding. There is no active drainage or odor noted. There is some periwound erythema present. Suture flaps appeared to be viable at this time with no ecchymotic discoloration noted. Neurological: Alert and oriented x3. No focal deficits. Skin: No rashes, papules, vesicles, excoriations Laboratory Results Last 24 Hours Test 05/05/17 05:45 White Blood Count 9.03 K/uL Red Blood Count 3.46 M/uL Hemoglobin 8.8 g/dL Hematocrit 30.2 % Mean Corpuscular Volume 87.3 fL Mean Corpuscular Hemoglobin 25.4 pg Mean Corpuscular Hemoglobin Concent 29.1 g/dl RDW Standard Deviation 68.7 fL RDW Coefficient of Variation 21.8 % Platelet Count 314 K/uL Mean Platelet Volume 9.4 fL Sodium Level 140 mmol/L Potassium Level 4.2 mmol/L Chloride Level 106 mmol/L Carbon Dioxide Level 27 mmol/L Anion Gap 7.0 mmol/L Blood Urea Nitrogen 17 mg/dl Creatinine 0.54 mg/dl Est Creatinine Clear Calc Drug Dose 121.4 ml/min Estimated GFR () 126.8 Estimated GFR (Non- 109.4 BUN/Creatinine Ratio 31.0 Random Glucose 92 mg/dl Calcium Level 9.2 mg/dl Assessment & Plan Assessment: Postoperative wound dehiscence BKA site left side Plan: No debridement is indicated at this time. The site will be dressed with Santyl and gauze changed on a daily basis patient will continue to be monitored during hospitalization and can be evaluated on an ongoing basis in the outpatient clinic upon discharge. Patient states he would like to be treated in [place] even though he may be transferred to the [facility] for rehabilitation.
[2017-05-05] MEDS: ASCORBIC ACID 500 MG TAB PO SCH ×2 (08:22→21:24)
[2017-05-05] MEDS: FERROUS SULFATE 325 MG TAB PO SCH ×2 (08:23→16:31)
[2017-05-05] MEDS: CEROVITE ADV FORMULA TAB PO SCH (08:23)
[2017-05-05] MEDS: BACLOFEN TAB 20 MG TAB PO SCH ×3 (08:24→21:25)
[2017-05-05] MEDS: LACTOBACILLUS ACIDOPHILUS (FLORANEX) TAB PO SCH ×3 (08:24→16:31)
[2017-05-05] MEDS: THIAMINE HCL 50 MG TAB PO SCH (08:24)
[2017-05-05] MEDS: SENNA 8.6 MG TAB PO SCH (08:24)
[2017-05-05] MEDS: COLLAGENASE OINT 30 GM TUBE EXT SCH (08:25)
[2017-05-05] MEDS: ZINC SULFATE 220 MG CAP PO SCH (08:25)
[2017-05-05] MEDS: POLYETHYLENE (MIRALAX) 17 GM PACK PO SCH ×2 (08:25→17:19)
[2017-05-05] MEDS: BOOST VANILLA PO SCH ×6 (08:26→17:19)
[2017-05-05 08:30] VITALS: O2SAT 96
--- NOTE | 2017-05-05 10:36 | Orthopedic Progress Note ---
Orthopedic Progress Note Date of Service May 05, 2017. Subjective Reports: feeling well, Denies: complaints Additional Notes: Pt awake, alert. Rosi De Los Santos present to help with dressing change. Objective Dressings removed. Aquacel noted on the wound and removed. No overt worsening changes of the wound and actually looks a bit stable cleaner although he has a darkening coloration to the medial aspect of the wound and continues with the "fatty slough" on the medial third of the wound. Wound dressed with Santyl, covered with 4x4's, and then lateral portion of wound covered with Aquacel AG, 4x4's, kerlix. Date Time Temp Pulse Resp B/P (MAP) Pulse Ox O2 Delivery O2 Flow Rate FiO2 05/05/17 07:38 36.9 72 14 96/64 (75) 96 Room Air 05/05/17 00:10 37.0 77 18 108/70 (83) 97 Room Air 05/05/17 00:10 Room Air 05/04/17 19:38 Room Air 05/04/17 16:00 98 Room Air 05/04/17 14:44 36.5 79 18 100/62 (75) 98 Room Air Laboratory Results 24 Hours: Test 05/05/17 05:45 Hematocrit 30.2 % Hemoglobin 8.8 g/dL Assessment & Plan Assessment: POD #6 s/p revision amputation BKA Plan: Will review with Dr Grady Make NPO after midnight. Plans are to continue Santyl for 48 hours (which will be tomorrow) Dr Grady to decide on further surgical needs. Discharge Planning Discharge Planning: uncertain
[2017-05-05 11:38] VITALS: O2SAT 96
[2017-05-05] MEDS: LEVOFLOXACIN 500 MG TAB PO SCH (12:13)
[2017-05-05 15:42] VITALS: BP 104/64; PULSE 77; TEMP 36.7; O2SAT 99
--- NOTE | 2017-05-05 16:24 | Family Medicine Progress Note ---
Progress Note Date of Service May 05, 2017. Subjective Pt evaluation today including: conversation w/ patient, physical exam, chart review, lab review Pain: denies any discomfort PO Intake: tolerating Voiding: washburn catheter in place This AM pt reports continued occasional R leg cramping which is chronic. Reported large BM and relief of constipation. Denied any cp, sob, abd pn, n/v. Constitutional: No fever Respiratory: No shortness of breath Cardiovascular: No chest pain Abdomen: No pain, No nausea, No vomiting, No constipation Medications Current Inpatient Medications Medications (Trade) Dose Ordered Sig/Stephen Route Start Time Stop Time Status Last Admin Dose Admin Acetaminophen 100 ml @ 400 mls/hr Q8H PRN IV 04/27/17 12:45 05/27/17 12:44 Ondansetron HCl (Zofran Inj) 4 mg Q6H PRN IV 04/27/17 12:45 05/27/17 12:44 Acetaminophen (Tylenol Tab) 650 mg Q6H PRN PO 04/27/17 13:00 05/27/17 12:59 05/04/17 08:59 650 MG Baclofen (Lioresal Tab) 20 mg TID PO 04/27/17 14:00 05/27/17 13:59 05/05/17 13:32 20 MG Folic Acid (Folvite Tab) 1 mg DAILY PO 04/28/17 08:00 05/28/17 08:59 05/05/17 08:23 1 MG Temazepam (Restoril Cap) 7.5 mg HS PO 04/27/17 21:00 05/27/17 20:59 05/04/17 21:58 7.5 MG Thiamine HCl (Vitamin B-1 Tab) 50 mg DAILY PO 04/28/17 08:00 05/28/17 08:59 05/05/17 08:24 50 MG Ferrous Sulfate (Feosol Tab) 325 mg BIDM PO 04/27/17 17:00 05/27/17 17:59 05/05/17 08:23 325 MG Lactobacillus Acidophilus (Floranex Tab) 4 tab TIDM PO 04/27/17 17:00 05/27/17 17:59 05/05/17 12:13 4 TAB Multivitamins/ Minerals (Multivitamin W/ Minerals Tab) 1 tab QAM PO 04/29/17 08:00 05/29/17 07:59 05/05/17 08:23 1 TAB Ascorbic Acid (Vitamin C Tab) 500 mg BID PO 04/28/17 20:00 05/28/17 19:59 05/05/17 08:22 500 MG Zinc Sulfate (Zinc Sulfate Cap) 220 mg QAM PO 04/28/17 17:30 05/12/17 17:29 05/05/17 08:25 220 MG Enteral Nutritional Formula (Boost) 1 can TIDM PO 04/29/17 12:00 05/29/17 11:59 05/05/17 12:13 1 CAN Pantoprazole Sodium (Protonix Tab) 40 mg DAILY@0630 PO 05/02/17 06:30 05/28/17 08:59 05/05/17 06:38 40 MG Senna (Senokot Tab) 17.2 mg QAM PO 05/02/17 08:00 06/01/17 07:59 05/05/17 08:24 17.2 MG Polyethylene (Miralax Powder Packet) 17 gm BID PO 05/02/17 08:00 06/01/17 07:59 05/05/17 08:25 17 GM Heparin Sodium (Porcine) (Heparin Sq 5000 Unit/0.5ml) 5,000 unit Q8 SQ 05/01/17 22:00 05/31/17 21:59 05/05/17 14:24 5,000 UNIT Levofloxacin (Levaquin Tab) 500 mg DAILY@11 PO 05/03/17 11:00 06/14/17 10:59 05/05/17 12:13 500 MG Al Hydrox/Mg Hydrox/Simethicone (Maalox Max Susp) 15 ml Q6H PRN PO 05/03/17 00:15 06/02/17 00:14 05/03/17 00:22 15 ML Bisacodyl (Dulcolax Supp) 10 mg DAILY PRN CO 05/04/17 10:00 06/03/17 09:59 05/04/17 10:42 10 MG Collagenase (Santyl Oint) 1 appln DAILY EXT 05/04/17 08:00 06/03/17 07:59 05/05/17 08:25 1 APPLN Objective Vital Signs Date Time Temp Pulse Resp B/P (MAP) Pulse Ox O2 Delivery O2 Flow Rate FiO2 05/05/17 15:42 36.7 77 18 104/64 (77) 99 Room Air 05/05/17 11:38 96 Room Air 05/05/17 08:30 96 Room Air 95.0 05/05/17 07:38 36.9 72 14 96/64 (75) 96 Room Air 05/05/17 00:10 37.0 77 18 108/70 (83) 97 Room Air 05/05/17 00:10 Room Air 05/04/17 19:38 Room Air Physical Exam General Appearance: no apparent distress Eyes: normal inspection Neck: supple Respiratory/Chest: lungs clear, normal breath sounds Cardiovascular: regular rate, rhythm, no edema Abdomen: normal bowel sounds, non tender, soft Extremities: normal inspection, + pertinent finding (L BKA stump - no active bleeding with an area of yellow slough) Neurologic/Psychiatric: alert, normal mood/affect, oriented x 3 Laboratory Results 05/05/17 05:45 05/05/17 05:45 Test 05/05/17 05:45 Red Blood Count 3.46 M/uL (4.7-6.1) Mean Corpuscular Volume 87.3 fL (80-100) Mean Corpuscular Hemoglobin 25.4 pg (25-34) Mean Corpuscular Hemoglobin Concent 29.1 g/dl (32-36) RDW Standard Deviation 68.7 fL (36.4-46.3) RDW Coefficient of Variation 21.8 % (11.5-14.5) Mean Platelet Volume 9.4 fL (7.4-10.4) Anion Gap 7.0 mmol/L (3-11) Est Creatinine Clear Calc Drug Dose 121.4 ml/min Estimated GFR () 126.8 Estimated GFR (Non- 109.4 BUN/Creatinine Ratio 31.0 (10-20) Calcium Level 9.2 mg/dl (8.5-10.1) Assessment and Plan 66yo male with hx of spina bifida and L BKA in 1984 who presented with worsening skin breakdown despite being on Keflex while at [facility] for recent diagnosis of urosepsis at [place]. Currently AFVSS. Not a candidate for wound vac at this point. Awaiting decision on further debridement by ortho tomorrow and senior living facility placement determination. Sepsis with Pseudomonas bacteremia sec to Left BKA stump infection/ulcers -POD #6 s/p revision of L BKA with resection of approximately 4-5 inches of distal tibia and fibula and debridement of skin, fascia and ulcerations on the left lower thigh and leg by Dr. Grady -Intra-op cultures growing GNR and pseudomonas -Switched IV cipro to PO Levaquin - ID consulted- recommends total of 4 wks of abx -Continue 2 week course of vitamin C and zinc to promote wound healing. -Area over medial aspect of stump with yellowish tinge which may need further debridement -Santyl (enzymatic debriding ointment - 250 collagenase) applied for 48 hours -Awaiting input from Dr. Grady for possible debridement tomorrow if area not improved with Santyl alone -Will make NPO after midnight -D/c to SNF in [place] (lives there - PCP - Dr. Bueno) Moderate protein calorie malnutrition -boost, and MVI Anemia of chronic disease - obtained records from formerly [facility] - baseline Hb about 9-10. Hb now stable at 8.8 and back to baseline. 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 GERD -PPI qam. DVT prophylaxis -heparin TID. Possible discharge to [facility] in [place] - gladis submitted paperwork per social work but no male beds at this time. Case management will follow up in a few days. Resident Involvement: Resident Care Provided Care Provided: Adult Hospital Medicine Reviewed: Pt Seen/Exam by Me History no new concerns overnight. having regular bowel movements Constitutional: denies: fever Respiratory: negative: short of breath Cardiovascular: denies chest pain Gastrointestinal/Abdominal: negative: abdominal pain General Appearance: no apparent distress Respiratory: lungs clear, no respiratory distress Cardiovascular: regular rate, rhythm Extremities: other (left bka stump in dressing) Neurologic/Psychiatric: alert, oriented x 3 Assessment/Plan Resident Physician Supervision Note: I independently interviewed and examined the patient and verified the ellis history and physical, reviewed labs and image studies, discussed the case with the resident Dr. Pandey and agree with the findings and care plan.
[2017-05-05 16:30] VITALS: O2SAT 99
[2017-05-05] MEDS: TEMAZEPAM 7.5 MG CAP PO SCH (21:24)
[2017-05-06 00:15] VITALS: BP 104/68; PULSE 81; TEMP 36.7; O2SAT 97
[2017-05-06 05:52] LABS: BASO % 1.1 %; BASO ABS # 0.11 K/uL (0-0.2); EOS % 3.5 %; HEMATOCRIT 30.4 % (42-52); LYMPH % 14.2 %; LYMPH ABS # 1.38 K/uL (1.2-3.4); MEAN CELL VOLUME 86.9 fL (80-100); MEAN CORPUSCULAR HEMOGLOBIN 26.6 pg (25-34); MEAN CORPUSCULAR HGB CONC 30.6 g/dl (32-36); MEAN PLATELET VOLUME 9.5 fL (7.4-10.4); MONO % 9.1 %; NEUT % 70.1 %; PLATELET COUNT 319 K/uL (130-400); WHITE BLOOD COUNT 9.71 K/uL (4.8-10.8)
[2017-05-06] MEDS: HEPARIN SOD 5000 UNIT/0.5 ML CARP SQ SCH ×3 (06:00→22:04)
[2017-05-06] MEDS: PANTOprazole SOD 40 MG TAB PO SCH ×2 (06:14→10:23)
[2017-05-06 06:17] LABS: CALCIUM 9.3 mg/dl (8.5-10.1); CREATININE 0.65 mg/dl (0.60-1.40); POTASSIUM 4.3 mmol/L (3.5-5.1)
[2017-05-06 06:40] LABS: ANISOCYTOSIS PRESENT; COMPLETE YES; HYPERSEGMENTED POLYS 1+; POLYCHROMASIA 1+
[2017-05-06 07:32] VITALS: BP 119/68; PULSE 77; TEMP 36.8; O2SAT 99
[2017-05-06] MEDS: LACTOBACILLUS ACIDOPHILUS (FLORANEX) TAB PO SCH ×3 (08:00→15:44)
[2017-05-06] MEDS: BOOST VANILLA PO SCH ×6 (08:00→15:44)
[2017-05-06] MEDS: FERROUS SULFATE 325 MG TAB PO SCH ×2 (08:00→15:44)
[2017-05-06] MEDS: ASCORBIC ACID 500 MG TAB PO SCH ×2 (08:00→20:33)
[2017-05-06] MEDS: POLYETHYLENE (MIRALAX) 17 GM PACK PO SCH ×2 (08:00→20:31)
--- NOTE | 2017-05-06 09:44 | Orthopedic Progress Note ---
Orthopedic Progress Note Date of Service May 06, 2017. Subjective Post OP Day: 7 Reports: feeling well, Denies: complaints Additional Notes: No complaints with the left BKA Objective dressing C/D/I, incision C/D/I, A&O x3 Left BKA: lateral aspect of the flap is well approximated. At the anterodistal, anteromedial aspect of the flap, the sutures are intact and the open areas have good granulation tissue. Mild to moderate yellow sloughing noted. Minimal erythema around the incision or open area. The flap is soft. No drainage noted at this time. No fluctuance. Date Time Temp Pulse Resp B/P (MAP) Pulse Ox O2 Delivery O2 Flow Rate FiO2 05/06/17 07:32 36.8 77 20 119/68 (85) 99 Room Air 05/06/17 00:15 36.7 81 20 104/68 (80) 97 Room Air 05/06/17 00:07 Room Air 05/05/17 16:30 99 Room Air 05/05/17 15:42 36.7 77 18 104/64 (77) 99 Room Air 05/05/17 11:38 96 Room Air Laboratory Results 24 Hours: Test 05/06/17 05:26 White Blood Count 9.71 K/uL Red Blood Count 3.50 M/uL Hemoglobin 9.3 g/dL Hematocrit 30.4 % Mean Corpuscular Volume 86.9 fL Mean Corpuscular Hemoglobin 26.6 pg Mean Corpuscular Hemoglobin Concent 30.6 g/dl Platelet Count 319 K/uL Mean Platelet Volume 9.5 fL Neutrophils (%) (Auto) 70.1 % Lymphocytes (%) (Auto) 14.2 % Monocytes (%) (Auto) 9.1 % Eosinophils (%) (Auto) 3.5 % Basophils (%) (Auto) 1.1 % Neutrophils # (Auto) 6.81 K/uL Lymphocytes # (Auto) 1.38 K/uL Monocytes # (Auto) 0.88 K/uL Eosinophils # (Auto) 0.34 K/uL Basophils # (Auto) 0.11 K/uL Assessment & Plan Assessment: POD #7 s/p revision amputation BKA Plan: Will continue Santyl dressings daily. No surgical tx today. Will be evaluated again tomorrow. NPO after Midnight Discharge Planning Discharge Planning: uncertain
[2017-05-06] MEDS: BACLOFEN TAB 20 MG TAB PO SCH ×3 (10:21→20:34)
[2017-05-06] MEDS: THIAMINE HCL 50 MG TAB PO SCH (10:23)
[2017-05-06] MEDS: ZINC SULFATE 220 MG CAP PO SCH (10:23)
[2017-05-06] MEDS: COLLAGENASE OINT 30 GM TUBE EXT SCH (10:23)
[2017-05-06] MEDS: CEROVITE ADV FORMULA TAB PO SCH (10:23)
[2017-05-06] MEDS: SENNA 8.6 MG TAB PO SCH (10:23)
[2017-05-06] MEDS: LEVOFLOXACIN 500 MG TAB PO SCH (10:23)
--- NOTE | 2017-05-06 11:20 | Family Medicine Progress Note ---
Progress Note Date of Service May 06, 2017. Subjective Pt evaluation today including: conversation w/ patient, physical exam, chart review, lab review Pain: denies any discomfort this AM PO Intake: NPO after midnight; diet resumed for lunch Voiding: washburn catheter in place This AM pt reports feeling well. He denies any constipation, sob, cp, abd pain, n/v. Constitutional: No fever Respiratory: No shortness of breath Cardiovascular: No chest pain Abdomen: No pain, No nausea, No vomiting, No constipation Skin: + problem reported (L BKA stump wound and groin/buttocks fungal infection) Medications Current Inpatient Medications Medications (Trade) Dose Ordered Sig/Stephen Route Start Time Stop Time Status Last Admin Dose Admin Acetaminophen 100 ml @ 400 mls/hr Q8H PRN IV 04/27/17 12:45 05/27/17 12:44 Ondansetron HCl (Zofran Inj) 4 mg Q6H PRN IV 04/27/17 12:45 05/27/17 12:44 Acetaminophen (Tylenol Tab) 650 mg Q6H PRN PO 04/27/17 13:00 05/27/17 12:59 05/04/17 08:59 650 MG Baclofen (Lioresal Tab) 20 mg TID PO 04/27/17 14:00 05/27/17 13:59 05/06/17 10:21 20 MG Folic Acid (Folvite Tab) 1 mg DAILY PO 04/28/17 08:00 05/28/17 08:59 05/06/17 10:21 1 MG Temazepam (Restoril Cap) 7.5 mg HS PO 04/27/17 21:00 05/27/17 20:59 05/05/17 21:24 7.5 MG Thiamine HCl (Vitamin B-1 Tab) 50 mg DAILY PO 04/28/17 08:00 05/28/17 08:59 05/06/17 10:23 50 MG Ferrous Sulfate (Feosol Tab) 325 mg BIDM PO 04/27/17 17:00 05/27/17 17:59 05/05/17 16:31 325 MG Lactobacillus Acidophilus (Floranex Tab) 4 tab TIDM PO 04/27/17 17:00 05/27/17 17:59 05/06/17 10:22 4 TAB Multivitamins/ Minerals (Multivitamin W/ Minerals Tab) 1 tab QAM PO 04/29/17 08:00 05/29/17 07:59 05/06/17 10:23 1 TAB Ascorbic Acid (Vitamin C Tab) 500 mg BID PO 04/28/17 20:00 05/28/17 19:59 05/05/17 21:24 500 MG Zinc Sulfate (Zinc Sulfate Cap) 220 mg QAM PO 04/28/17 17:30 05/12/17 17:29 05/06/17 10:23 220 MG Enteral Nutritional Formula (Boost) 1 can TIDM PO 04/29/17 12:00 05/29/17 11:59 05/06/17 10:22 1 CAN Pantoprazole Sodium (Protonix Tab) 40 mg DAILY@0630 PO 05/02/17 06:30 05/28/17 08:59 05/06/17 10:23 40 MG Senna (Senokot Tab) 17.2 mg QAM PO 05/02/17 08:00 06/01/17 07:59 05/06/17 10:23 17.2 MG Polyethylene (Miralax Powder Packet) 17 gm BID PO 05/02/17 08:00 06/01/17 07:59 05/05/17 17:19 17 GM Heparin Sodium (Porcine) (Heparin Sq 5000 Unit/0.5ml) 5,000 unit Q8 SQ 05/01/17 22:00 05/31/17 21:59 05/05/17 21:28 5,000 UNIT Levofloxacin (Levaquin Tab) 500 mg DAILY@11 PO 05/03/17 11:00 06/14/17 10:59 05/06/17 10:23 500 MG Al Hydrox/Mg Hydrox/Simethicone (Maalox Max Susp) 15 ml Q6H PRN PO 05/03/17 00:15 06/02/17 00:14 05/03/17 00:22 15 ML Bisacodyl (Dulcolax Supp) [address] 05/04/17 10:00 06/03/17 09:59 05/04/17 10:42 10 MG Collagenase (Santyl Oint) 1 appln DAILY EXT 05/04/17 08:00 06/03/17 07:59 05/06/17 10:23 1 APPLN Resident Involvement: Resident Care Provided Care Provided: Adult [facility] Medicine Objective Vital Signs Date Time Temp Pulse Resp B/P (MAP) Pulse Ox O2 Delivery O2 Flow Rate FiO2 05/06/17 07:32 36.8 77 20 119/68 (85) 99 Room Air 05/06/17 00:15 36.7 81 20 104/68 (80) 97 Room Air 05/06/17 00:07 Room Air 05/05/17 16:30 99 Room Air 05/05/17 15:42 36.7 77 18 104/64 (77) 99 Room Air 05/05/17 11:38 96 Room Air Physical Exam General Appearance: no apparent distress Eyes: normal inspection Neck: supple Respiratory/Chest: lungs clear, normal breath sounds Cardiovascular: regular rate, rhythm, no edema, no murmur Abdomen: normal bowel sounds, non tender, soft Extremities: no pedal edema, + pertinent finding (L BKA stump - sutures intact , open areas not covered by skin with areas of yellow sloughing and minimal erythema/bleeding) Neurologic/Psychiatric: alert, oriented x 3 Laboratory Results 05/06/17 05:26 Red Blood Count 3.50, Mean Corpuscular Volume 86.9, Mean Corpuscular Hemoglobin 26.6, Mean Corpuscular Hemoglobin Concent 30.6, Mean Platelet Volume 9.5, Neutrophils (%) (Auto) 70.1, Lymphocytes (%) (Auto) 14.2, Monocytes (%) (Auto) 9.1, Eosinophils (%) (Auto) 3.5, Basophils (%) (Auto) 1.1, Neutrophils # (Auto) 6.81, Lymphocytes # (Auto) 1.38, Monocytes # (Auto) 0.88, Eosinophils # (Auto) 0.34, Basophils # (Auto) 0.11 05/06/17 05:29 Test 05/06/17 05:26 05/06/17 05:29 White Blood Count 9.71 K/uL (4.8-10.8) Red Blood Count 3.50 M/uL (4.7-6.1) Hemoglobin 9.3 g/dL (14.0-18.0) Hematocrit 30.4 % (42-52) Mean Corpuscular Volume 86.9 fL (80-100) Mean Corpuscular Hemoglobin 26.6 pg (25-34) Mean Corpuscular Hemoglobin Concent 30.6 g/dl (32-36) Platelet Count 319 K/uL (130-400) Mean Platelet Volume 9.5 fL (7.4-10.4) Neutrophils (%) (Auto) 70.1 % Lymphocytes (%) (Auto) 14.2 % Monocytes (%) (Auto) 9.1 % Eosinophils (%) (Auto) 3.5 % Basophils (%) (Auto) 1.1 % Neutrophils # (Auto) 6.81 K/uL (1.4-6.5) Lymphocytes # (Auto) 1.38 K/uL (1.2-3.4) Monocytes # (Auto) 0.88 K/uL (0.11-0.59) Eosinophils # (Auto) 0.34 K/uL (0-0.5) Basophils # (Auto) 0.11 K/uL (0-0.2) RDW Standard Deviation 69.1 fL (36.4-46.3) RDW Coefficient of Variation 21.8 % (11.5-14.5) Immature Granulocyte % (Auto) 2.0 % Immature Granulocyte # (Auto) 0.19 K/uL (0.00-0.02) Hypersegmented Polys 1+ Polychromasia 1+ Anisocytosis PRESENT Anion Gap 6.0 mmol/L (3-11) Est Creatinine Clear Calc Drug Dose 100.9 ml/min Estimated GFR () 117.5 Estimated GFR (Non- 101.4 BUN/Creatinine Ratio 26.0 (10-20) Calcium Level 9.3 mg/dl (8.5-10.1) Assessment and Plan 66yo male with hx of spina bifida and L BKA in 1984 who presented with worsening skin breakdown despite being on Keflex while at [facility] for recent diagnosis of urosepsis at [place]. Currently AFVSS. Not a candidate for wound vac at this point. Per ortho, no surgery for further debridement today, will continue Santyl dressings daily, and evaluated again tomorrow. Awaiting halfway facility placement determination. Sepsis with Pseudomonas bacteremia sec to Left BKA stump infection/ulcers -POD #7 s/p revision of L BKA with resection of approximately 4-5 inches of distal tibia and fibula and debridement of skin, fascia and ulcerations on the left lower thigh and leg by Dr. Grady -Intra-op cultures growing GNR and pseudomonas -Switched IV cipro to PO Levaquin - ID consulted- recommends total of 4 wks of abx - Day 4 -Continue 2 week course of vitamin C and zinc to promote wound healing. -Area over medial aspect of stump with yellowish tinge which may need further debridement -Santyl (enzymatic debriding ointment - 250 collagenase) dressing daily -Dr. Grady/Ortho following and will re-evaluate tomorrow -D/c to SNF (possibly [facility]) in [place] (lives there - PCP - Dr. Bueno ) Moderate protein calorie malnutrition -boost, and MVI Anemia of chronic disease - obtained records from [facility] - baseline Hb about 9-10. Hb now stable at 9.3 and back to baseline. 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 Hx of PAD - records obtained from [facility] - had NORMAL arterial dopplers of both legs on 04/18/17. DVT prophylaxis -heparin TID. Possible discharge to [facility] in [place] - fiance submitted paperwork per social work but no male beds at this time. Case management will follow up in a few days. Continued [facility] stay due to: other (continued debridement of L BKA wound) Discharge planning: halfway facility Reviewed: Pt Seen/Exam by Me History no new concerns Constitutional: denies: fever Respiratory: negative: short of breath Cardiovascular: denies chest pain Gastrointestinal/Abdominal: negative: constipation General Appearance: no apparent distress Respiratory: no respiratory distress Cardiovascular: regular rate, rhythm Extremities: other (left bka stump with stitches on the surgical wound. adjoining skin with ulcer - surface covered with yellowish tissue) Neurologic/Psychiatric: alert, oriented x 3 Assessment/Plan Resident Physician Supervision Note: I independently interviewed and examined the patient and verified the ellis history and physical, reviewed labs and image studies, discussed the case with the resident Dr. Pandey and agree with the findings and care plan.
[2017-05-06 15:05] VITALS: BP 98/60; PULSE 76; TEMP 36.5; O2SAT 97
[2017-05-06] MEDS: TEMAZEPAM 7.5 MG CAP PO SCH (22:02)
[2017-05-06 23:26] VITALS: BP 111/70; PULSE 81; TEMP 37.1; O2SAT 97
[2017-05-07] MEDS: PANTOprazole SOD 40 MG TAB PO SCH ×2 (05:41→13:08)
[2017-05-07] MEDS: HEPARIN SOD 5000 UNIT/0.5 ML CARP SQ SCH ×3 (05:41→22:03)
[2017-05-07 06:44] LABS: BASO % 1.1 %; BASO ABS # 0.09 K/uL (0-0.2); EOS % 4.1 %; HEMATOCRIT 30.6 % (42-52); IG% 1.9 %; LYMPH % 15.6 %; LYMPH ABS # 1.25 K/uL (1.2-3.4); MEAN CELL VOLUME 87.2 fL (80-100); MEAN CORPUSCULAR HEMOGLOBIN 25.9 pg (25-34); MEAN CORPUSCULAR HGB CONC 29.7 g/dl (32-36); MEAN PLATELET VOLUME 9.6 fL (7.4-10.4); NEUT % 69.3 %; PLATELET COUNT 336 K/uL (130-400); RED BLOOD COUNT 3.51 M/uL (4.7-6.1); WHITE BLOOD COUNT 8.02 K/uL (4.8-10.8)
[2017-05-07 07:09] LABS: BUN/CREATININE RATIO 30.7 (10-20); CALCIUM 9.6 mg/dl (8.5-10.1); CREATININE 0.64 mg/dl (0.60-1.40); POTASSIUM 4.2 mmol/L (3.5-5.1)
[2017-05-07 07:14] VITALS: BP 111/74; PULSE 70; TEMP 37; O2SAT 100
[2017-05-07 07:46] LABS: ANISOCYTOSIS PRESENT; COMPLETE YES; HYPERSEGMENTED POLYS 1+
[2017-05-07 07:53] VITALS: O2SAT 100
[2017-05-07] MEDS: BACLOFEN TAB 20 MG TAB PO SCH ×3 (08:32→20:58)
[2017-05-07] MEDS: LACTOBACILLUS ACIDOPHILUS (FLORANEX) TAB PO SCH ×3 (08:32→17:21)
[2017-05-07] MEDS: BOOST VANILLA PO SCH ×6 (08:32→17:21)
--- NOTE | 2017-05-07 12:05 | Family Medicine Progress Note ---
Progress Note Date of Service May 07, 2017. Subjective Pt evaluation today including: conversation w/ patient, physical exam, chart review, lab review Pain: denies any discomfort this AM PO Intake: NPO for possible debridement by ortho today Voiding: washburn catheter in place This AM pt denies any discomfort, sob, cp, abdominal pn, n/v, constipation. Constitutional: No fever Respiratory: No shortness of breath Cardiovascular: No chest pain Abdomen: No pain, No nausea, No vomiting Musculoskeletal: No joint pain Medications Current Inpatient Medications Medications (Trade) Dose Ordered Sig/Stephen Route Start Time Stop Time Status Last Admin Dose Admin Acetaminophen 100 ml @ 400 mls/hr Q8H PRN IV 04/27/17 12:45 05/27/17 12:44 Ondansetron HCl (Zofran Inj) 4 mg Q6H PRN IV 04/27/17 12:45 05/27/17 12:44 Acetaminophen (Tylenol Tab) 650 mg Q6H PRN PO 04/27/17 13:00 05/27/17 12:59 05/04/17 08:59 650 MG Baclofen (Lioresal Tab) 20 mg TID PO 04/27/17 14:00 05/27/17 13:59 05/06/17 20:34 20 MG Folic Acid (Folvite Tab) 1 mg DAILY PO 04/28/17 08:00 05/28/17 08:59 05/06/17 10:21 1 MG Temazepam (Restoril Cap) 7.5 mg HS PO 04/27/17 21:00 05/27/17 20:59 05/06/17 22:02 7.5 MG Thiamine HCl (Vitamin B-1 Tab) 50 mg DAILY PO 04/28/17 08:00 05/28/17 08:59 05/06/17 10:23 50 MG Ferrous Sulfate (Feosol Tab) 325 mg BIDM PO 04/27/17 17:00 05/27/17 17:59 05/06/17 15:44 325 MG Lactobacillus Acidophilus (Floranex Tab) 4 tab TIDM PO 04/27/17 17:00 05/27/17 17:59 05/06/17 15:44 4 TAB Multivitamins/ Minerals (Multivitamin W/ Minerals Tab) 1 tab QAM PO 04/29/17 08:00 05/29/17 07:59 05/06/17 10:23 1 TAB Ascorbic Acid (Vitamin C Tab) 500 mg BID PO 04/28/17 20:00 05/28/17 19:59 05/06/17 20:33 500 MG Zinc Sulfate (Zinc Sulfate Cap) 220 mg QAM PO 04/28/17 17:30 05/12/17 17:29 05/06/17 10:23 220 MG Enteral Nutritional Formula (Boost) 1 can TIDM PO 04/29/17 12:00 05/29/17 11:59 05/06/17 15:44 1 CAN Pantoprazole Sodium (Protonix Tab) 40 mg DAILY@0630 PO 05/02/17 06:30 05/28/17 08:59 05/06/17 10:23 40 MG Senna (Senokot Tab) 17.2 mg QAM PO 05/02/17 08:00 06/01/17 07:59 05/06/17 10:23 17.2 MG Polyethylene (Miralax Powder Packet) 17 gm BID PO 05/02/17 08:00 06/01/17 07:59 05/06/17 20:31 17 GM Heparin Sodium (Porcine) (Heparin Sq 5000 Unit/0.5ml) 5,000 unit Q8 SQ 05/01/17 22:00 05/31/17 21:59 05/06/17 22:04 5,000 UNIT Levofloxacin (Levaquin Tab) 500 mg DAILY@11 PO 05/03/17 11:00 06/14/17 10:59 05/06/17 10:23 500 MG Al Hydrox/Mg Hydrox/Simethicone (Maalox Max Susp) 15 ml Q6H PRN PO 05/03/17 00:15 06/02/17 00:14 05/03/17 00:22 15 ML Bisacodyl (Dulcolax Supp) 10 mg DAILY PRN [place] 05/04/17 10:00 06/03/17 09:59 05/04/17 10:42 10 MG Collagenase (Santyl Oint) 1 appln DAILY EXT 05/04/17 08:00 06/03/17 07:59 05/06/17 10:23 1 APPLN Objective Vital Signs Date Time Temp Pulse Resp B/P (MAP) Pulse Ox O2 Delivery O2 Flow Rate FiO2 05/07/17 07:53 100 Room Air 10/21/17 07:14 37.0 70 18 111/74 (86) 100 05/07/17 00:00 Room Air 05/06/17 23:26 37.1 81 16 111/70 (84) 97 Room Air 05/06/17 16:14 Room Air 05/06/17 15:05 36.5 76 18 98/60 (73) 97 Room Air 05/06/17 12:27 Room Air Physical Exam General Appearance: no apparent distress Eyes: normal inspection Neck: supple Respiratory/Chest: lungs clear, normal breath sounds Cardiovascular: regular rate, rhythm, no edema Abdomen: normal bowel sounds, non tender, soft Extremities: + pertinent finding (L BKA stump wound covered, dressing clean) Neurologic/Psychiatric: alert, oriented x 3 Laboratory Results 05/07/17 06:15 Red Blood Count 3.51, Mean Corpuscular Volume 87.2, Mean Corpuscular Hemoglobin 25.9, Mean Corpuscular Hemoglobin Concent 29.7, Mean Platelet Volume 9.6, Neutrophils (%) (Auto) 69.3, Lymphocytes (%) (Auto) 15.6, Monocytes (%) (Auto) 8.0, Eosinophils (%) (Auto) 4.1, Basophils (%) (Auto) 1.1, Neutrophils # (Auto) 5.56, Lymphocytes # (Auto) 1.25, Monocytes # (Auto) 0.64, Eosinophils # (Auto) 0.33, Basophils # (Auto) 0.09 05/07/17 06:15 Test 05/07/17 06:15 White Blood Count 8.02 K/uL (4.8-10.8) Red Blood Count 3.51 M/uL (4.7-6.1) Hemoglobin 9.1 g/dL (14.0-18.0) Hematocrit 30.6 % (42-52) Mean Corpuscular Volume 87.2 fL (80-100) Mean Corpuscular Hemoglobin 25.9 pg (25-34) Mean Corpuscular Hemoglobin Concent 29.7 g/dl (32-36) Platelet Count 336 K/uL (130-400) Mean Platelet Volume 9.6 fL (7.4-10.4) Neutrophils (%) (Auto) 69.3 % Lymphocytes (%) (Auto) 15.6 % Monocytes (%) (Auto) 8.0 % Eosinophils (%) (Auto) 4.1 % Basophils (%) (Auto) 1.1 % Neutrophils # (Auto) 5.56 K/uL (1.4-6.5) Lymphocytes # (Auto) 1.25 K/uL (1.2-3.4) Monocytes # (Auto) 0.64 K/uL (0.11-0.59) Eosinophils # (Auto) 0.33 K/uL (0-0.5) Basophils # (Auto) 0.09 K/uL (0-0.2) RDW Standard Deviation 67.6 fL (36.4-46.3) RDW Coefficient of Variation 21.3 % (11.5-14.5) Immature Granulocyte % (Auto) 1.9 % Immature Granulocyte # (Auto) 0.15 K/uL (0.00-0.02) Hypersegmented Polys 1+ Anisocytosis PRESENT Anion Gap 6.0 mmol/L (3-11) Est Creatinine Clear Calc Drug Dose 102.5 ml/min Estimated GFR () 118.3 Estimated GFR (Non- 102.0 BUN/Creatinine Ratio 30.7 (10-20) Calcium Level 9.6 mg/dl (8.5-10.1) Assessment and Plan 66yo male with hx of spina bifida and L BKA in 1984 who presented with worsening skin breakdown despite being on Keflex while at [facility] for recent diagnosis of urosepsis at [place]. Currently AFVSS. Not a candidate for wound vac. Per ortho, will continue Santyl dressings daily, remains NPO this AM for possible debridement today. Awaiting long term facility placement determination. Sepsis with Pseudomonas bacteremia sec to Left BKA stump infection/ulcers -POD #8 s/p revision of L BKA with resection of approximately 4-5 inches of distal tibia and fibula and debridement of skin, fascia and ulcerations on the left lower thigh and leg by Dr. Grady -Intra-op cultures growing GNR and pseudomonas -Switched IV cipro to PO Levaquin - ID consulted- recommends total of 4 wks of abx - Day 5 -Continue 2 week course of vitamin C and zinc to promote wound healing. -Area over medial aspect of stump with yellowish tinge which may need further debridement -Santyl (enzymatic debriding ointment - 250 collagenase) dressing daily -Dr. Grady/Ortho following and will re-evaluate today for surgical debridement -D/c to SNF (possibly [facility]) in [place] (lives there - PCP - Dr. Bueno ) Moderate protein calorie malnutrition -boost, and MVI Anemia of chronic disease - obtained records from [facility] - baseline Hb about 9-10. Hb now stable at 9.3 and back to baseline. 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 Hx of PAD - records obtained from [facility] - had NORMAL arterial dopplers of both legs on 04/18/17. DVT prophylaxis -heparin TID. Possible discharge to [facility] in [place] - fiance submitted paperwork per social work but no male beds at this time. Case management will follow up on Tuesday. Continued [facility] stay due to: other (continued debridement of L BKA stump) Discharge planning: long term facility Resident Involvement: Resident Care Provided Care Provided: Adult Hospital Medicine Reviewed: Pt Seen/Exam by Me History no new concerns overnight. eating well. no constipation no fever Constitutional: denies: fever Respiratory: negative: short of breath Cardiovascular: denies chest pain Gastrointestinal/Abdominal: negative: abdominal pain General Appearance: no apparent distress (comfortable in bed) Respiratory: lungs clear, no respiratory distress Cardiovascular: regular rate, rhythm Extremities: other (left bka with stump dressing) Neurologic/Psychiatric: alert, oriented x 3 Assessment/Plan Resident Physician Supervision Note: I independently interviewed and examined the patient and verified the ellis history and physical, reviewed labs and image studies, discussed the case with the resident Dr. Pandey and agree with the findings and care plan.
[2017-05-07] MEDS: FERROUS SULFATE 325 MG TAB PO SCH ×2 (13:07→17:21)
[2017-05-07] MEDS: LEVOFLOXACIN 500 MG TAB PO SCH (13:07)
[2017-05-07] MEDS: CEROVITE ADV FORMULA TAB PO SCH (13:08)
[2017-05-07] MEDS: SENNA 8.6 MG TAB PO SCH (13:09)
[2017-05-07] MEDS: ZINC SULFATE 220 MG CAP PO SCH (13:09)
[2017-05-07] MEDS: THIAMINE HCL 50 MG TAB PO SCH (13:09)
[2017-05-07] MEDS: POLYETHYLENE (MIRALAX) 17 GM PACK PO SCH ×2 (13:09→17:22)
[2017-05-07] MEDS: ASCORBIC ACID 500 MG TAB PO SCH ×2 (13:09→20:58)
[2017-05-07] MEDS: COLLAGENASE OINT 30 GM TUBE EXT SCH (13:10)
--- NOTE | 2017-05-07 13:39 | Orthopedic Progress Note ---
Orthopedic Progress Note Date of Service May 07, 2017. Objective Left BKA: lateral aspect of the flap is well approximated. At the anterodistal, anteromedial aspect of the flap, the sutures are intact and the open areas have good granulation tissue. Mild to moderate yellow sloughing noted. Minimal erythema around the incision or open area. The flap is soft. No drainage noted at this time. No fluctuance. Date Time Temp Pulse Resp B/P (MAP) Pulse Ox O2 Delivery O2 Flow Rate FiO2 05/07/17 07:53 100 Room Air 05/07/17 07:14 37.0 70 18 111/74 (86) 100 05/07/17 00:00 Room Air 05/06/17 23:26 37.1 81 16 111/70 (84) 97 Room Air 05/06/17 16:14 Room Air 05/06/17 15:05 36.5 76 18 98/60 (73) 97 Room Air Laboratory Results 24 Hours: Test 05/07/17 06:15 White Blood Count 8.02 K/uL Red Blood Count 3.51 M/uL Hemoglobin 9.1 g/dL Hematocrit 30.6 % Mean Corpuscular Volume 87.2 fL Mean Corpuscular Hemoglobin 25.9 pg Mean Corpuscular Hemoglobin Concent 29.7 g/dl Platelet Count 336 K/uL Mean Platelet Volume 9.6 fL Neutrophils (%) (Auto) 69.3 % Lymphocytes (%) (Auto) 15.6 % Monocytes (%) (Auto) 8.0 % Eosinophils (%) (Auto) 4.1 % Basophils (%) (Auto) 1.1 % Neutrophils # (Auto) 5.56 K/uL Lymphocytes # (Auto) 1.25 K/uL Monocytes # (Auto) 0.64 K/uL Eosinophils # (Auto) 0.33 K/uL Basophils # (Auto) 0.09 K/uL Assessment & Plan Assessment: POD #7 s/p revision amputation BKA Plan: Will continue Santyl dressings daily. No surgical tx today, spoke with Dr. Grady, we are not planning any further d bridements at this time wound very similar to yesterday We will continue to monitor but recommend that he can start getting set up for outpatient wound management once he is medically ready for discharge. Discharge Planning Discharge Planning: uncertain
[2017-05-07 15:35] VITALS: BP 94/59; PULSE 62; TEMP 36.7; O2SAT 95
[2017-05-07 15:50] VITALS: O2SAT 95
[2017-05-07] MEDS: TEMAZEPAM 7.5 MG CAP PO SCH (21:59)
[2017-05-08 00:18] VITALS: BP 98/58; PULSE 79; TEMP 36.6; O2SAT 97
[2017-05-08] MEDS: ALUMINUM/MAGNESIUM/SIMETH (MAALOX MAX) 30 ML UDC PO PRN ×2 (05:27→22:00)
[2017-05-08] MEDS: PANTOprazole SOD 40 MG TAB PO SCH (05:28)
[2017-05-08] MEDS: HEPARIN SOD 5000 UNIT/0.5 ML CARP SQ SCH ×3 (05:35→21:57)
[2017-05-08 07:20] VITALS: BP 111/72; PULSE 77; TEMP 36.6; O2SAT 99
[2017-05-08] MEDS: FERROUS SULFATE 325 MG TAB PO SCH ×2 (07:58→17:23)
[2017-05-08] MEDS: CEROVITE ADV FORMULA TAB PO SCH (07:58)
[2017-05-08] MEDS: ASCORBIC ACID 500 MG TAB PO SCH ×2 (07:58→19:55)
[2017-05-08] MEDS: SENNA 8.6 MG TAB PO SCH (07:58)
[2017-05-08] MEDS: LACTOBACILLUS ACIDOPHILUS (FLORANEX) TAB PO SCH ×4 (07:58→17:24)
[2017-05-08] MEDS: POLYETHYLENE (MIRALAX) 17 GM PACK PO SCH ×2 (07:59→17:24)
[2017-05-08] MEDS: ZINC SULFATE 220 MG CAP PO SCH (07:59)
[2017-05-08] MEDS: THIAMINE HCL 50 MG TAB PO SCH (07:59)
[2017-05-08] MEDS: BACLOFEN TAB 20 MG TAB PO SCH ×3 (07:59→19:55)
[2017-05-08] MEDS: BOOST VANILLA PO SCH ×8 (08:00→17:23)
[2017-05-08] MEDS: COLLAGENASE OINT 30 GM TUBE EXT SCH (08:00)
[2017-05-08 08:30] VITALS: O2SAT 100
--- NOTE | 2017-05-08 10:31 | Orthopedic Progress Note ---
Orthopedic Progress Note Date of Service May 08, 2017. Objective Date Time Temp Pulse Resp B/P (MAP) Pulse Ox O2 Delivery O2 Flow Rate FiO2 05/08/17 08:30 100 Room Air 05/08/17 07:20 36.6 77 18 111/72 (85) 99 Room Air 05/08/17 00:18 36.6 79 18 98/58 (71) 97 Room Air 05/08/17 00:15 Room Air 05/07/17 15:50 95 Room Air 05/07/17 15:35 36.7 62 16 94/59 (71) 95 Assessment & Plan Assessment: POD #9 s/p revision amputation BKA Plan: Will continue Santyl dressings daily. No surgical tx today, spoke with Dr. Grady, we are not planning any further d bridements at this time Wound looks slightly improved today We will continue to monitor. My recommendation would be to check the wound one more time tomorrow and if it still is acceptable to plan for close follow-up with the wound clinic. If it starts to worsen then we will make other arrangements but for now I would watch it 1 more day. Discharge Planning Discharge Planning: uncertain
--- NOTE | 2017-05-08 10:34 | Family Medicine Progress Note ---
Progress Note Date of Service May 08, 2017. Subjective Pt evaluation today including: conversation w/ patient, physical exam, chart review, lab review Pain: denies any discomfort this AM PO Intake: tolerating Voiding: washburn catheter in place This AM pt denies any discomfort, sob, cp, abd pn, n/v, SIMMS Constitutional: No fever Respiratory: No shortness of breath Cardiovascular: No chest pain Abdomen: No pain, No nausea, No vomiting Neurologic: + problem reported (denies headache) Skin: + new/changing skin lesions Medications Current Inpatient Medications Medications (Trade) Dose Ordered Sig/Stephen Route Start Time Stop Time Status Last Admin Dose Admin Acetaminophen 100 ml @ 400 mls/hr Q8H PRN IV 04/27/17 12:45 05/27/17 12:44 Ondansetron HCl (Zofran Inj) 4 mg Q6H PRN IV 04/27/17 12:45 05/27/17 12:44 Acetaminophen (Tylenol Tab) 650 mg Q6H PRN PO 04/27/17 13:00 05/27/17 12:59 05/04/17 08:59 650 MG Baclofen (Lioresal Tab) 20 mg TID PO 04/27/17 14:00 05/27/17 13:59 05/08/17 07:59 20 MG Folic Acid (Folvite Tab) 1 mg DAILY PO 04/28/17 08:00 05/28/17 08:59 05/08/17 07:59 1 MG Temazepam (Restoril Cap) 7.5 mg HS PO 04/27/17 21:00 05/27/17 20:59 05/07/17 21:59 7.5 MG Thiamine HCl (Vitamin B-1 Tab) 50 mg DAILY PO 04/28/17 08:00 05/28/17 08:59 05/08/17 07:59 50 MG Ferrous Sulfate (Feosol Tab) 325 mg BIDM PO 04/27/17 17:00 05/27/17 17:59 05/08/17 07:58 325 MG Lactobacillus Acidophilus (Floranex Tab) 4 tab TIDM PO 04/27/17 17:00 05/27/17 17:59 05/08/17 07:58 4 TAB Multivitamins/ Minerals (Multivitamin W/ Minerals Tab) 1 tab QAM PO 04/29/17 08:00 05/29/17 07:59 05/08/17 07:58 1 TAB Ascorbic Acid (Vitamin C Tab) 500 mg BID PO 04/28/17 20:00 05/28/17 19:59 05/08/17 07:58 500 MG Zinc Sulfate (Zinc Sulfate Cap) 220 mg QAM PO 04/28/17 17:30 05/12/17 17:29 05/08/17 07:59 220 MG Enteral Nutritional Formula (Boost) 1 can TIDM PO 04/29/17 12:00 05/29/17 11:59 05/08/17 08:00 1 CAN Pantoprazole Sodium (Protonix Tab) 40 mg DAILY@0630 PO 05/02/17 06:30 05/28/17 08:59 05/08/17 05:28 40 MG Senna (Senokot Tab) 17.2 mg QAM PO 05/02/17 08:00 06/01/17 07:59 05/08/17 07:58 17.2 MG Polyethylene (Miralax Powder Packet) 17 gm BID PO 05/02/17 08:00 06/01/17 07:59 05/08/17 07:59 17 GM Heparin Sodium (Porcine) (Heparin Sq 5000 Unit/0.5ml) 5,000 unit Q8 SQ 05/01/17 22:00 05/31/17 21:59 05/08/17 05:35 5,000 UNIT Levofloxacin (Levaquin Tab) 500 mg DAILY@11 PO 05/03/17 11:00 06/14/17 10:59 05/07/17 13:07 500 MG Al Hydrox/Mg Hydrox/Simethicone (Maalox Max Susp) 15 ml Q6H PRN PO 05/03/17 00:15 06/02/17 00:14 05/08/17 05:27 15 ML Bisacodyl (Dulcolax Supp) 10 mg DAILY PRN OR 05/04/17 10:00 06/03/17 09:59 05/04/17 10:42 10 MG Collagenase (Santyl Oint) 1 appln DAILY EXT 05/04/17 08:00 06/03/17 07:59 05/08/17 08:00 1 APPLN Objective Vital Signs Date Time Temp Pulse Resp B/P (MAP) Pulse Ox O2 Delivery O2 Flow Rate FiO2 05/08/17 07:20 36.6 77 18 111/72 (85) 99 Room Air 05/08/17 00:18 36.6 79 18 98/58 (71) 97 Room Air 05/08/17 00:15 Room Air 05/07/17 15:50 95 Room Air 05/07/17 15:35 36.7 62 16 94/59 (71) 95 Physical Exam General Appearance: no apparent distress Eyes: normal inspection Neck: supple Respiratory/Chest: lungs clear, normal breath sounds Cardiovascular: regular rate, rhythm, no edema, no murmur Abdomen: normal bowel sounds, non tender, soft Extremities: + pertinent finding (L BKA stump dressing intact and clean) Neurologic/Psychiatric: alert, oriented x 3 Laboratory Results Last Resulted 05/07/17 06:15 Red Blood Count 3.51, Mean Corpuscular Volume 87.2, Mean Corpuscular Hemoglobin 25.9, Mean Corpuscular Hemoglobin Concent 29.7, Mean Platelet Volume 9.6, Neutrophils (%) (Auto) 69.3, Lymphocytes (%) (Auto) 15.6, Monocytes (%) (Auto) 8.0, Eosinophils (%) (Auto) 4.1, Basophils (%) (Auto) 1.1, Neutrophils # (Auto) 5.56, Lymphocytes # (Auto) 1.25, Monocytes # (Auto) 0.64, Eosinophils # (Auto) 0.33, Basophils # (Auto) 0.09 Last Resulted 05/07/17 06:15 Assessment and Plan 66yo male with hx of spina bifida and L BKA in 1984 who presented with worsening skin breakdown despite being on Keflex while at [facility] for recent diagnosis of urosepsis at [place]. Currently AFVSS. Per ortho, not a candidate for wound vac and no further debridement planned. Continuing Santyl dressings daily. Awaiting prison facility placement determination tomorrow. Sepsis with Pseudomonas bacteremia sec to Left BKA stump infection/ulcers -POD #9 s/p revision of L BKA with resection of approximately 4-5 inches of distal tibia and fibula and debridement of skin, fascia and ulcerations on the left lower thigh and leg by Dr. Grady -Intra-op cultures grew GNR and pseudomonas -ID Switched IV cipro to PO Levaquin for 4 wks - Day 6 -Continue 2 week course of vitamin C and zinc to promote wound healing -Area over medial aspect of stump with yellowish tinge from skin -Santyl (enzymatic debriding ointment - 250 collagenase) dressing daily -Dr. Grady/Ortho monitoring -D/c to SNF (possibly [facility]) in [place] (lives there - PCP - Dr. Bueno ) Moderate protein calorie malnutrition -boost, and MVI Anemia of chronic disease - obtained records from [facility] - baseline Hb about 9-10. Hb now stable at 9.1 and back to baseline. 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 Hx of PAD - records obtained from [facility] - had NORMAL arterial dopplers of both legs on 04/18/17. DVT prophylaxis -heparin TID. Anticipate d/c to [facility] tomorrow. Can then work on changing placement to facility closer to home. Has requested to get an outline of all the instruction for his wound and back written out to him at the time of discharge - for his own information. Continued [facility] stay due to: other (placement) Discharge planning: prison facility Reviewed: Pt Seen/Exam by Me History no concerns overnight Constitutional: denies: fever Respiratory: negative: short of breath Cardiovascular: denies chest pain General Appearance: no apparent distress Respiratory: lungs clear, no respiratory distress Cardiovascular: regular rate, rhythm Extremities: other (left bka - stump in dressing) Neurologic/Psychiatric: alert, oriented x 3 Skin Characteristics: warm/dry Assessment/Plan Resident Physician Supervision Note: I independently interviewed and examined the patient and verified the ellis history and physical, reviewed labs and image studies, discussed the case with the resident Dr. Pandey and agree with the findings and care plan.
[2017-05-08] MEDS: LEVOFLOXACIN 500 MG TAB PO SCH (12:26)
[2017-05-08 15:55] VITALS: BP 111/68; PULSE 78; TEMP 36.6; O2SAT 99
[2017-05-08 16:00] VITALS: O2SAT 99
[2017-05-08] MEDS ORDERED: SNTO30 EXT (17:48)
[2017-05-08] MEDS ORDERED: ZNCS220 PO (17:48)
[2017-05-08] MEDS ORDERED: LVQ500 PO (17:48)
[2017-05-08] MEDS ORDERED: ASCA500 PO (17:48)
[2017-05-08] MEDS: TEMAZEPAM 7.5 MG CAP PO SCH (21:52)
[2017-05-08 22:55] VITALS: BP 101/64; PULSE 91; TEMP 36.7; O2SAT 97
[2017-05-09] MEDS: HEPARIN SOD 5000 UNIT/0.5 ML CARP SQ SCH ×3 (05:40→22:21)
[2017-05-09] MEDS: PANTOprazole SOD 40 MG TAB PO SCH (05:41)
[2017-05-09] MEDS: ACETAMINOPHEN 325 MG TAB PO PRN (05:46)
[2017-05-09 06:44] LABS: BASO % 1.1 %; BASO ABS # 0.09 K/uL (0-0.2); EOS % 5.2 %; HEMATOCRIT 30.6 % (42-52); IG% 0.9 %; LYMPH % 14.5 %; LYMPH ABS # 1.23 K/uL (1.2-3.4); MEAN CELL VOLUME 86.9 fL (80-100); MEAN PLATELET VOLUME 9.8 fL (7.4-10.4); NEUT % 70.3 %; PLATELET COUNT 316 K/uL (130-400); RED BLOOD COUNT 3.52 M/uL (4.7-6.1)
[2017-05-09 07:08] VITALS: BP 109/67; PULSE 64; TEMP 37.2; O2SAT 100
[2017-05-09 07:10] LABS: ANISOCYTOSIS PRESENT; COMPLETE YES; HYPERSEGMENTED POLYS 1+; HYPOCHROMIA PRESENT
[2017-05-09 07:17] LABS: BUN/CREATININE RATIO 26.9 (10-20); CALCIUM 9.4 mg/dl (8.5-10.1); CREATININE 0.63 mg/dl (0.60-1.40); POTASSIUM 4.3 mmol/L (3.5-5.1)
[2017-05-09] MEDS: LACTOBACILLUS ACIDOPHILUS (FLORANEX) TAB PO SCH ×3 (08:11→17:26)
[2017-05-09] MEDS: CEROVITE ADV FORMULA TAB PO SCH (08:11)
[2017-05-09] MEDS: SENNA 8.6 MG TAB PO SCH (08:12)
[2017-05-09] MEDS: ASCORBIC ACID 500 MG TAB PO SCH ×2 (08:12→20:39)
[2017-05-09] MEDS: THIAMINE HCL 50 MG TAB PO SCH (08:12)
[2017-05-09] MEDS: BACLOFEN TAB 20 MG TAB PO SCH ×3 (08:12→20:39)
[2017-05-09] MEDS: POLYETHYLENE (MIRALAX) 17 GM PACK PO SCH ×2 (08:12→17:24)
[2017-05-09] MEDS: ZINC SULFATE 220 MG CAP PO SCH (08:12)
[2017-05-09] MEDS: FERROUS SULFATE 325 MG TAB PO SCH ×2 (08:12→17:25)
[2017-05-09] MEDS: BOOST VANILLA PO SCH ×6 (08:13→17:25)
[2017-05-09] MEDS: COLLAGENASE OINT 30 GM TUBE EXT SCH (08:13)
[2017-05-09 08:30] VITALS: O2SAT 100
--- NOTE | 2017-05-09 08:47 | Family Medicine Progress Note ---
Progress Note Date of Service May 09, 2017. Subjective Pt evaluation today including: conversation w/ patient, physical exam, chart review, lab review Pain: controlled PO Intake: adequate Voiding: washburn catheter in place Spoke with pt this morning who reports he is feeling better, and very well taken care of here. He states that [facility] [place] he feels that is the reason he is here in need of further debridement in the first place. Is requesting to be sent directly to [facility] in [place]. Normally lives at [facility] apartment in [place], has a fiancee Piero , who is in charge of submitting an application to [facility]. No acute events over night.Denies pain in legs. Constitutional: No fever, No chills Respiratory: No cough Cardiovascular: No chest pain Abdomen: No pain, No constipation Musculoskeletal: No joint pain, No muscle pain Male : No dysuria Objective Physical Exam General Appearance: WD/WN, no apparent distress Eyes: normal inspection, EOMI Respiratory/Chest: chest non-tender, lungs clear, normal breath sounds, no respiratory distress Cardiovascular: regular rate, rhythm, no edema, no JVD, no murmur Abdomen: normal bowel sounds, non tender, soft Extremities: + pertinent finding (s/p LT leg amputation, wound dressing present , neg for erythema or drainage. RT leg somewhat atrophic, but otherwise normal inspection and palpation.) Neurologic/Psychiatric: alert, normal mood/affect, oriented x 3 Skin: normal color, warm/dry, no rash Assessment and Plan 66yo male with hx of spina bifida and L BKA in 1984 who presented with worsening skin breakdown despite being on Keflex while at [facility] rehab for recent diagnosis of urosepsis at [place]. Hospital day: 12 (05/09) Left BKA soft tissue infection, Pseudomonal infection (resistent to imipenem only) - POD #10 s/p revision of L BKA by Dr. Grady. Wound care following. - Intra-op cultures grew GNR and pseudomonas - bone scan and XR ruled out osteomyelitis, only showed soft tissue infection/cellulitis - Continue PO Levaquin for 4 wks - Day 7 (05/09) - Continue 2 week course of vitamin C and zinc to promote wound healing - Continue daily santyl dressing (Dr. Barter/Ortho monitoring - "not a candidate for wound vac and no further debridement planned.") - h/o PAD - per records obtained from [facility] - NORMAL arterial dopplers of both legs on 04/18/17. - Attempted D/c to [facility] (05/09) but pt refused - then possibly [facility] in [place] (lives there - PCP - Dr. Bueno). 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 - Hb now stable at 9.5 - S/p IV venofer 300mg IV x 1 on 05/01, has also received IV iron in the last few months at [facility] - Follow CBC Chronic Washburn catheterization, acute Pseudomonas Bacteruria - Replaced with new washburn 05/03. - Sensitive to Levaquin Paraplegic - 2/2 spina bifida - stable - continue Baclofen 20 TID GERD - PPI qam. Insomnia - temazepam 7.5 qhs Prophylaxis -heparin TID, protonix Dispo: Anticipated d/c to [facility] today, however pt still refusing. Case mgmt is talking with him. Can then work on changing placement to [facility], which is closer to home. Has requested to get an outline of all the instruction for his wound and back written out to him at the time of discharge - for his own information. Code: FULL Continued [facility] stay due to: multiple IV medications needed, home environment unsafe for pt Discharge planning: rehab hospital Resident Tracking Resident Involvement: Resident Care Provided Care Provided: Adult Hospital Medicine
[2017-05-09] MEDS: LEVOFLOXACIN 500 MG TAB PO SCH (12:10)
--- NOTE | 2017-05-09 14:48 | Orthopedic Progress Note ---
Orthopedic Progress Note Date of Service May 09, 2017. Subjective Reports: feeling well, calf pain, Denies: chest pain, SOB, nausea / vomiting, light headedness Objective N/V intact, dressing C/D/I, incision C/D/I, A&O x3 DRESSING REMOVED. INCISION IS HEALING WELL. HE HAS 2 AREAS OF SEROSANGUINEOUS DRAINAGE. NO PURULENCE. EVIDENCE OF GRANULATION. Date Time Temp Pulse Resp B/P (MAP) Pulse Ox O2 Delivery O2 Flow Rate FiO2 05/09/17 08:30 100 Room Air 05/09/17 07:08 37.2 64 18 109/67 (81) 100 05/08/17 23:25 Room Air 05/08/17 22:55 36.7 91 20 101/64 (76) 97 Room Air 05/08/17 16:00 99 Room Air 05/08/17 15:55 36.6 78 18 111/68 (82) 99 Room Air Laboratory Results 24 Hours: Test 05/09/17 06:24 White Blood Count 8.50 K/uL Red Blood Count 3.52 M/uL Hemoglobin 9.5 g/dL Hematocrit 30.6 % Mean Corpuscular Volume 86.9 fL Mean Corpuscular Hemoglobin 27.0 pg Mean Corpuscular Hemoglobin Concent 31.0 g/dl Platelet Count 316 K/uL Mean Platelet Volume 9.8 fL Neutrophils (%) (Auto) 70.3 % Lymphocytes (%) (Auto) 14.5 % Monocytes (%) (Auto) 8.0 % Eosinophils (%) (Auto) 5.2 % Basophils (%) (Auto) 1.1 % Neutrophils # (Auto) 5.98 K/uL Lymphocytes # (Auto) 1.23 K/uL Monocytes # (Auto) 0.68 K/uL Eosinophils # (Auto) 0.44 K/uL Basophils # (Auto) 0.09 K/uL Assessment & Plan Assessment: POD #10 s/p revision amputation BKA Plan: Will continue Santyl dressings daily. No surgical tx today, spoke with Dr. Grady, we are not planning any further d bridements at this time Wound looks slightly improved today We will continue to monitor. WOUND IS ACCEPTABLE BUT WILL NEED CLOSE MONITORING. RECOMMEND CLOSE FOLLOW UP WITH WOUND CARE. ORTHOPEDICALLY STABLE FOR NOW. WILL SIGN OFF. Discharge Planning Discharge Planning: uncertain
--- NOTE | 2017-05-09 14:50 | Consultant Recommendations ---
Cut And Cover Line Worker Recommendations Date of Service May 09, 2017. Cut And Cover Line Worker Recommendations Continue dressing changes per wound clinic [place] [facility] [phone] [place] wound check and suture removal
[2017-05-09 14:55] VITALS: BP 102/57; PULSE 69; TEMP 36.7; O2SAT 97
[2017-05-09 16:00] VITALS: O2SAT 97
[2017-05-09] MEDS: TEMAZEPAM 7.5 MG CAP PO SCH (22:20)
[2017-05-09] MEDS: ALUMINUM/MAGNESIUM/SIMETH (MAALOX MAX) 30 ML UDC PO PRN (23:31)
[2017-05-10 00:06] VITALS: BP 98/62; PULSE 77; TEMP 36.9; O2SAT 96
[2017-05-10] MEDS: HEPARIN SOD 5000 UNIT/0.5 ML CARP SQ SCH ×2 (05:55→12:53)
[2017-05-10] MEDS: PANTOprazole SOD 40 MG TAB PO SCH (05:56)
[2017-05-10 07:00] LABS: HEMATOCRIT 29.6 % (42-52); MEAN CELL VOLUME 87.3 fL (80-100); MEAN CORPUSCULAR HEMOGLOBIN 27.7 pg (25-34); MEAN CORPUSCULAR HGB CONC 31.8 g/dl (32-36); MEAN PLATELET VOLUME 9.4 fL (7.4-10.4); PLATELET COUNT 288 K/uL (130-400); RED BLOOD COUNT 3.39 M/uL (4.7-6.1); WHITE BLOOD COUNT 7.52 K/uL (4.8-10.8)
[2017-05-10 07:41] VITALS: BP 107/66; PULSE 70; TEMP 36.8; O2SAT 99
[2017-05-10] MEDS: POLYETHYLENE (MIRALAX) 17 GM PACK PO SCH (09:16)
[2017-05-10] MEDS: LACTOBACILLUS ACIDOPHILUS (FLORANEX) TAB PO SCH ×2 (09:16→12:50)
[2017-05-10] MEDS: CEROVITE ADV FORMULA TAB PO SCH (09:16)
[2017-05-10] MEDS: COLLAGENASE OINT 30 GM TUBE EXT SCH (09:16)
[2017-05-10] MEDS: SENNA 8.6 MG TAB PO SCH (09:17)
[2017-05-10] MEDS: ASCORBIC ACID 500 MG TAB PO SCH (09:17)
[2017-05-10] MEDS: LEVOFLOXACIN 500 MG TAB PO SCH (09:17)
[2017-05-10] MEDS: ZINC SULFATE 220 MG CAP PO SCH (09:17)
[2017-05-10] MEDS: THIAMINE HCL 50 MG TAB PO SCH (09:17)
[2017-05-10] MEDS: FERROUS SULFATE 325 MG TAB PO SCH (09:17)
[2017-05-10] MEDS: BACLOFEN TAB 20 MG TAB PO SCH ×2 (09:17→12:50)
[2017-05-10] MEDS: BOOST VANILLA PO SCH ×4 (09:18→12:54)
--- NOTE | 2017-05-10 12:34 | Family Medicine Progress Note ---
Progress Note Date of Service May 10, 2017. Assessment and Plan 66yo male with hx of spina bifida and L BKA in 1984 who presented with worsening skin breakdown despite being on Keflex while at [facility] rehab for recent diagnosis of urosepsis at [place]. Hospital day: 13 (05/10) Left BKA soft tissue infection, Pseudomonal infection (resistent to imipenem only) - POD #10 s/p revision of L BKA by Dr. Grady. Wound care following. - Intra-op cultures grew GNR and pseudomonas - bone scan and XR ruled out osteomyelitis, only showed soft tissue infection/cellulitis - Continue PO Levaquin for 4 wks - Day 8 (05/10) - Continue 2 week course of vitamin C and zinc to promote wound healing - Continue daily santyl dressing (Dr. Grady/Ortho monitoring - "not a candidate for wound vac and no further debridement planned.") - h/o PAD - per records obtained from [facility] - NORMAL arterial dopplers of both legs on 04/18/17. - Attempted D/c to [facility] (05/09) but pt refused - then possibly [facility] in [place] (lives there - PCP - Dr. Bueno). 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 - Hb now stable at 9.5 - S/p IV venofer 300mg IV x 1 on 05/01, has also received IV iron in the last few months at [facility] - Follow CBC Chronic Washburn catheterization, acute Pseudomonas Bacteruria - Replaced with new washburn 05/03. - Sensitive to Levaquin Paraplegic - 2/2 spina bifida - stable - continue Baclofen 20 TID GERD - PPI qam. Insomnia - temazepam 7.5 qhs Prophylaxis -heparin TID, protonix Dispo: Anticipated d/c to [facility] today, however pt still refusing. Case mgmt is talking with him. Can then work on changing placement to [facility], which is closer to home. Has requested to get an outline of all the instruction for his wound and back written out to him at the time of discharge - for his own information. Code: FULL Continued [facility] stay due to: home environment unsafe for pt Discharge planning: rehab hospital Resident Tracking Resident Involvement: Resident Care Provided Care Provided: Adult Hospital Medicine
[2017-05-10 15:13] VITALS: BP 107/66; PULSE 70; TEMP 36.8; O2SAT 99
--- NOTE | 2017-05-10 15:18 | Discharge Instructions ---
Discharge Instructions Date of Service May 10, 2017. Admission Reason for Admission: Hx Of Bka, Left Leg Cellulitis Discharge Discharge Diagnosis / Problem: Left BKA soft tissue infection Discharge Goals Goal(s): Decrease discomfort, Improve function, Increase independence, Improve disease control, Improve nutritional status, Learn about illness, Diagnostic testing, Therapeutic intervention, Prevent Disease Progression, Specific goals Activity Recommendations Activity Level: OOB In Chair, Assistance Required Therapies: Physical Therapy, Occupational Therapy . Additional Information Patient informed of condition: Yes Advance Directives: Yes DNR: No Level of Care: Skilled Communicable Disease: Yes Prognosis: Other (guarded) Washburn Catheter: Yes Instructions / Follow-Up Instructions / Follow-Up you have lLeft BKA soft tissue infection, Pseudomonal infection you need to follow up with Dr. Grady as instructed, and Wound care center Tuesday, Tuesday, and Tuesday in first week of discharge, then depend on wound care center 's Doctor's decision you need to continue PO Levaquin for 4 wks - Day 8 (05/10) Continue 2 week course of vitamin C and zinc to promote wound healing Continue daily santyl dressing ok to D/c to [facility], please continue to transfer to [facility] in [place] (lives there - PCP - Dr. Bueno) per patient's wishes you have Fungal infection to right buttocks and b/l groin along with sacral decub, you need to continue follow up with wound care, continue antifungals and clinitron bed you have Chronic Washburn catheterization, acute Pseudomonas Bacteruria, Replaced with new washburn 05/03, supposed to be repalced q monthly, need sooner if needed - you need to follow up with your primary care physician in 1 week, - talk to your pcp if have chest pain, sob, palpitation, or if has any questions - take medication as instructed, never overdose or any misuse, or take with alcohol, because misuse of medicine may cause organ damage or , call your primary care physician if have questions of medicaitons. - call your primary care physician OR go to local emergency room if has any fever/chill, chest pain, shortness of breathing, nausea/vomiting/abdominal pain , facial droop/slurry speech/local weakness, or if has any questions. - fall precaution - diet as instructed - you need to follow up with your subspecialists Current Hospital Diet Patient's current hospital diet: AHA Diet (Heart Healthy) Discharge Diet Recommended Diet: AHA Diet (Heart Healthy) Procedures Procedures Performed: 1. Revision Left Below Knee Amputation 2. Debridement skin, fascia and ulcerations posterior leg and thigh left lower leg Pending Studies Studies pending at discharge: no Physician Orders On Transfer POLST Discussion: with POLST completion Medical Emergencies . Who to Call and When: Medical Emergencies: If at any time you feel your situation is an emergency, please call 911 immediately. . Non-Emergent Contact Non-Emergency issues call your: Primary Care Provider, Surgeon, Specialist ( and wound care clinic) Call Non-Emergent contact if: you have a fever, you have any medication questions . . "Provider Documentation" section prepared by Carlos Kapadia. . Pluck Separator Recommendations Pluck Separator Recommendations: Continue dressing changes per wound clinic Follow up with Dr. Grady at [facility] [place] - [phone] for wound check and suture removal Core Measure Problem Core Measures: None
--- NOTE | 2017-05-10 18:19 | Discharge Instructions ---
Discharge Instructions Date of Service May 10, 2017. Admission Reason for Admission: Hx Of Bka, Left Leg Cellulitis Discharge Discharge Diagnosis / Problem: Hx of BKA, Left Leg Cellulitis Discharge Goals Goal(s): Decrease discomfort, Improve function, Increase independence, Improve disease control, Learn about illness, Therapeutic intervention, Prevent Disease Progression Activity Recommendations Activity Limitations: as noted below Lifting Limitations: gradually increase as tolerated Exercise/Sports Limitations: as tolerated May Resume Sexual Activity: when tolerated Shower/Bathe: keep incision dry . Instructions / Follow-Up Instructions / Follow-Up Mr. Ruvalcaba is a 66 year old male with history of spina bifida and L BKA in 1984 who presented with worsening skin breakdown despite being on Keflex while at rehab hospital for prior treatment of urosepsis at [facility]. Hospital course: 13 days Left BKA soft tissue infection, Pseudomonal infection (resistent to imipenem only) - Debridement, revision of L BKA by Dr. Grady here. Wound care followed. Improvement. - Intra-op cultures grew GNR and pseudomonas - bone scan and XR ruled out osteomyelitis, only showed soft tissue infection/cellulitis - Continue PO Levaquin for 4 wks total - Has had only 8 days worth upon day of discharge (05/10) - Continue 2 week course of vitamin C and zinc to promote wound healing - Continue daily santyl dressing - h/o PAD - per records obtained from [facility] - NORMAL arterial dopplers of both legs on 04/18/17. - D/c to [facility] with plan to be transferred back to [facility] in [place] (lives there - PCP - Dr. Bueno). Wound Care details - Left Amputation Site, Present on Admission: Full Thickness 13.0 x 19.0 x 0.2cm depth. % Eschar (Black): 51-75%. % Slough (Yellow): 1-25% * Dressing Type Non-Adhesive Foam Hydrofiber With Silver * Irrigant Solution Type Saline (NSS) - Left Posterior THIGH, Present on Admission: Deep Tissue Injury Length 3.0 cm. * Dressing Type Non-Adhesive Foam - Left Right buttocks and thighs, Present on Admission: Fungal. 38.0 cm x 18.0 cm. % Granulated (Red): 26-50%. Included scrotun, rectumm , buttock cleft has scattered superficial open areas. 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 - Hb now stable at 9.5 - Repeat CBC 1-2 days, follow. Chronic Washburn catheterization, acute Pseudomonas Bacteruria - Replaced with new washburn 05/03. Needs monthly replacement. 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 GERD - PPI qam. Insomnia - temazepam 7.5 qhs Prophylaxis: heparin TID, protonix Dispo: d/c to [facility] with intent to transfer to [facility] once bed available, which is closer to home. Code: FULL Current Hospital Diet Patient's current hospital diet: AHA Diet (Heart Healthy) Discharge Diet Recommended Diet: AHA Diet (Heart Healthy) Fluid Restriction: None Procedures Procedures Performed: 1. Revision Left Below Knee Amputation 2. Debridement skin, fascia and ulcerations posterior leg and thigh left lower leg Pending Studies Studies pending at discharge: no Medical Emergencies . Who to Call and When: Medical Emergencies: If at any time you feel your situation is an emergency, please call 911 immediately. . Non-Emergent Contact Non-Emergency issues call your: Primary Care Provider . . "Provider Documentation" section prepared by Vannessa Covington. . Dance Coach Recommendations Dance Coach Recommendations: Continue dressing changes per wound clinic [place] [facility] [phone] [place] check and suture removal VTE Core Measure Inpt VTE Proph given/why not?: Unfractionated heparin SQ
--- NOTE | 2017-05-10 18:21 | Discharge Summary ---
Discharge Summary Date of Service May 10, 2017. Discharge Summary Admission Date: Apr 27, 2017 at 12:44 Discharge Date: May 10, 2017 Discharge Disposition: Rehab Principal Diagnosis: Hx of BKA, Left Leg Cellulitis Problems/Secondary Diagnoses: Spina Bifida Immunizations: Have You Had Influenza Vaccine: Unknown History of Tetanus Vaccine?: Unknown History of Pneumococcal: Unknown History of Hepatitis B Vaccine: Unknown Medication Reconciliation New Medications: Ascorbic Acid (Vitamin C) 500 Mg Tab 500 MG PO BID for 30 Days, #60 TAB Collagenase (Santyl) 250 Unit/Gm Oin 1 APPLN EXT DAILY for 30 Days, #60 GM 3 Refills Levofloxacin (Levofloxacin) 500 Mg Tab 500 MG PO DAILY@11 for 22 Days, #22 TAB Zinc Sulfate (Zinc Sulfate) 220 Mg Cap 220 MG PO QAM for 30 Days, #30 CAP Continued Medications: Acetaminophen (Tylenol) 325 Mg Tab 650 MG PO PRN for Mild Pain, TAB Acetic Acid (Acetic Acid 0.25%) 0.25 % June 1 APPLN TOP BID WOUND CLEANSING Baclofen (Baclofen) 20 Mg Tab 1 TAB PO TID for SPASMS 0800,1600,2000 Ferrous Sulfate (Kp Ferrous Sulfate) 325 Mg Tab 1 TAB PO BID 0800,1600 Folic Acid (Folvite) 1 Mg Tab 1 MG PO DAILY, TAB 0800 Melatonin (Kp Melatonin) 3 Mg Tab 1 TAB PO HS PRN for Sleep, TAB 2000 Nutritional Supplements (Boost) 1 Liq Liq 1 BOX PO TID 0800,1600,2000 Pantoprazole (Protonix) 40 Mg Tab 40 MG PO DAILY, TAB 0730 Probiotic Product (Probiotic) 1 Cap Cap 1 CAP PO BID 0800,1600 Temazepam (Restoril) 7.5 Mg Cap 7.5 MG PO HS for Insomnia, CAP 2000 Thiamine Hcl (Vitamin B-1) 100 Mg Tab 0.5 TAB PO DAILY, TAB 0800 Discontinued Medications: Cephalexin Monohydrate (Keflex) 500 Mg Cap 500 MG PO QID for 14 Days, #56 CAP 0800,1300,1800,2200 Doxycycline Hyclate (Doxycycline Hyclate) 100 Mg Tab 1 TAB PO BID for 14 Days, #28 TAB 0800,1600 Discharge Exam Review of Systems: Constitutional: No fever, No chills, No sweats Respiratory: No cough, No sputum, No wheezing Cardiovascular: No chest pain, No palpitations Abdomen: No pain, No nausea, No vomiting, No diarrhea, No constipation Genitourinary - Male: No dysuria Physical Exam: General Appearance: WD/WN, no apparent distress Eyes: normal inspection, EOMI Respiratory/Chest: chest non-tender, lungs clear, normal breath sounds, no respiratory distress Cardiovascular: regular rate, rhythm, no gallop, no JVD, no murmur Abdomen / GI: normal bowel sounds, non tender, soft Extremities: + pertinent finding (LT stump, covered with dressing. RT LE wnl , no edema, no rashes) Neurologic/Psychiatric: alert, normal mood/affect, oriented x 3 Skin: normal color, warm/dry, no rash Hospital Course Instructions / Follow-Up Mr. Ruvalcaba is a 66 year old male with history of spina bifida and L BKA in 1984 who presented with worsening skin breakdown despite being on Keflex while at rehab hospital for prior treatment of urosepsis at [place]. Hospital course: 13 days Left BKA soft tissue infection, Pseudomonal infection (resistent to imipenem only) - Debridement, revision of L BKA by Dr. Grady here. Wound care followed. Improvement. - Intra-op cultures grew GNR and pseudomonas - bone scan and XR ruled out osteomyelitis, only showed soft tissue infection/cellulitis - Continue PO Levaquin for 4 wks total - Has had only 8 days worth upon day of discharge (05/10) - Continue 2 week course of vitamin C and zinc to promote wound healing - Continue daily santyl dressing - h/o PAD - per records obtained from [facility] - NORMAL arterial dopplers of both legs on 04/18/17. - D/c to [facility] with plan to be transferred back to [facility] in [place] (lives there - PCP - Dr. Bueno). Wound Care details - Left Amputation Site, Present on Admission: Full Thickness 13.0 x 19.0 x 0.2cm depth. % Eschar (Black): 51-75%. % Slough (Yellow): 1-25% * Dressing Type Non-Adhesive Foam Hydrofiber With Silver * Irrigant Solution Type Saline (NSS) - Left Posterior THIGH, Present on Admission: Deep Tissue Injury Length 3.0 cm. * Dressing Type Non-Adhesive Foam - Left Right buttocks and thighs, Present on Admission: Fungal. 38.0 cm x 18.0 cm. % Granulated (Red): 26-50%. Included scrotun, rectumm , buttock cleft has scattered superficial open areas. 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 - Hb now stable at 9.5 - Repeat CBC 1-2 days, follow. Chronic Wash[place] catheterization, acute Pseudomonas Bacteruria - Replaced with new washburn 05/03. Needs monthly replacement. 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 GERD - PPI qam. Insomnia - temazepam 7.5 qhs Prophylaxis: heparin TID, protonix Dispo: d/c to [facility] with intent to transfer to [facility] once bed available, which is closer to home. Code: FULL Total Time Spent: Greater than 30 minutes This includes examination of the patient, discharge planning, medication reconciliation, and communication with other providers. Discharge Instructions Please refer to the electronic Patient Visit Report (Discharge Instructions) for additional information.
== END 2017-05-10 16:44 | DRG 474 ==
LOC: EDBD 09:49 → EDSEX 09:49 → C.EDB 09:50 → C.4E 12:44 → ENRESERV 12:56 → CANRESERV 12:56 → EDBEDREQ 13:04 → ENRESERV 13:08
PROVIDERS: ADMIT Hospitalist; ATTEND Hospitalist
PROC: 0JBP0ZX Excision of Left Lower Leg Subcutaneous Tissue and Fascia, Open Approach, Diagnostic (ICD-10-PCS; principal; 2017-04-30 07:30)
PROC: 0Y6J0Z3 Detachment at Left Lower Leg, Low, Open Approach (ICD-10-PCS; principal; 2017-04-30 07:30)
PROC: 0JBM0ZX Excision of Left Upper Leg Subcutaneous Tissue and Fascia, Open Approach, Diagnostic (ICD-10-PCS; principal; 2017-04-30 07:30)
DX: T87.44 Infection of amputation stump, left lower extremity (principal); M72.6 Necrotizing fasciitis; A41.89 Other specified sepsis; E44.0 Moderate protein-calorie malnutrition; N39.0 Urinary tract infection, site not specified; G82.20 Paraplegia, unspecified; B96.5 Pseudomonas (aeruginosa) (mallei) (pseudomallei) as the cause of diseases classified elsewhere; Z16.29 Resistance to other single specified antibiotic; Z89.512 Acquired absence of left leg below knee; Y95 Nosocomial condition; B37.2 Candidiasis of skin and nail; L89.159 Pressure ulcer of sacral region, unspecified stage; L89.899 Pressure ulcer of other site, unspecified stage; T87.81 Dehiscence of amputation stump; E83.42 Hypomagnesemia; K59.00 Constipation, unspecified; Q05.9 Spina bifida, unspecified; D63.8 Anemia in other chronic diseases classified elsewhere; K21.9 Gastro-esophageal reflux disease without esophagitis; G47.00 Insomnia, unspecified; N31.9 Neuromuscular dysfunction of bladder, unspecified; Z87.440 Personal history of urinary (tract) infections; Z79.899 Other long term (current) drug therapy; Z91.040 Latex allergy status

== ENCOUNTER 2017-05-12 23:23 | Emergency (ER) | payer OTHER ==
[~2017-05-12] VITALS: Ht 167.6 cm; Wt 75.0 kg
[~2017-05-12 23:23] MED LIST changes: +ACET-1311 PO; +ASCA500 PO; -CEPH500C2 PO; +LVQ500 PO; +SNTO30 EXT; +ZNCS220 PO
[2017-05-12] MEDS ORDERED: COLLAGENASE OINT 30 GM TUBE EXT STA (23:32)
[2017-05-12 23:42] VITALS: TEMP 36.8; Ht 167.6 cm; Wt 75.0 kg
--- NOTE | 2017-05-12 23:57 | EMERGENCY ROOM VISIT NOTE ---
History Report prepared by [place]: Micheline Patel Under the Supervision of: Dr. Carlos Prado M.D. First contact with patient: 23:24 Chief Complaint: LEG PAIN,LEG INJURY Stated Complaint: LEG WOUND/DRESSING CHANGE History of Present Illness The patient is a 66 year old male who presents to the Emergency Room with complaints of worsening leg pain that started earlier today. The patient notes that he was at [facility] and they are to do a dressing change twice per day but they have only been doing it once. He notes that the wound started to drain. The patient reports he never had a drainage like this before. He denies having any fevers. He notes that he is on Levaquin for a pseudomonas infection of the left leg. Source of History: patient Onset: earlier today Position: leg (left) Symptom Intensity: minimal Quality: other (leg amputation ) Timing: worsening Associated Symptoms: No fevers Review of Systems See HPI for pertinent positives & negatives. A total of 6 systems reviewed and were otherwise negative. Past Medical & Surgical Medical Problems: (1) Spina bifida (2) Wound infection Surgical Problems: (1) Hx of BKA Social History Smoking Status: Never Smoker Drug Use: none Housing Status: long-term Occupation Status: disabled Current/Historical Medications Scheduled Acetaminophen (Tylenol), 650 MG PO Q6 Acetic Acid (Acetic Acid 0.25%), 1 APPLN TOP BID Ascorbic Acid (Vitamin C), 500 MG PO BID Baclofen (Baclofen), 1 TAB PO TID Collagenase (Santyl), 1 APPLN EXT DAILY Ferrous Sulfate (Kp Ferrous Sulfate), 1 TAB PO BID Folic Acid (Folvite), 1 MG PO DAILY Levofloxacin (Levofloxacin), 500 MG PO DAILY@11 Melatonin (Kp Melatonin), 1 TAB PO HS Miconazole Nitrate (Topical) (Antifungal), 1 APPLN TOP DAILY Nutritional Supplements (Boost), 1 BOX PO TID Pantoprazole (Protonix), 40 MG PO DAILY Probiotic Product (Probiotic), 1 CAP PO BID Temazepam (Restoril), 7.5 MG PO HS Thiamine Hcl (Vitamin B-1), 0.5 TAB PO DAILY Zinc Sulfate (Zinc Sulfate), 220 MG PO QAM Allergies Coded Allergies: Latex1 -Allergic Contact Dermititis (Unverified Allergy, Unknown, ., 05/13) Physical Exam Vital Signs Date Time Temp Pulse Resp B/P (MAP) Pulse Ox O2 Delivery O2 Flow Rate FiO2 05/13/17 03:02 79 20 116/70 97 05/13/17 00:56 81 18 105/62 99 Room Air 05/12/17 23:42 36.8 86 18 117/67 98 Room Air Physical Exam GENERAL: Patient is well appearing and in no acute distress. HEENT: No acute trauma, normocephalic atraumatic, mucous membranes moist, no nasal congestion, no scleral icterus. NECK: No stridor, no adenopathy, no meningismus, trachea is midline. LUNGS: No dyspnea. Clear to auscultation and equal bilaterally. No wheeze, no rhonchi. HEART: Regular rate and rhythm. No murmurs, rubs, gallops appreciated. EXTREMITIES: Wasting of extremities secondary to Spina bifida (chronic) NEUROLOGIC: Alert and oriented, no acute motor or sensory deficits, no focal weakness, cranial nerves grossly intact. SKIN: No rash, no jaundice, no diaphoresis. WOUND: Left mid left leg amputation. Large wound of distal left leg amputation with open yellow granulation tissue. Faint dry blood on lateral edges of suture line. Minimal drainage. No surrounding erythema. No increased warmth, no sensation (chronic). Medical Decision & Procedures Medications Administered Medications (Trade) Dose Ordered Sig/Stephen Route Start Time Stop Time Status Last Admin Dose Admin Collagenase (Santyl Oint) 1 appln NOW STAT EXT 05/12/17 23:32 05/12/17 23:33 DC 05/12/17 23:32 1 APPLN ED Course 2324: The patient was evaluated in room B7. A complete history and physical exam was performed. 2332: Collagenase 1 appln EXT. 2350: Reevaluated the patient. Discussed results and discharge instructions: He verbalized understanding and agreement. The patient is ready for discharge. Medical Decision 66 yr old male with BKA left leg wound infection 3 weeks ago for which he was admitted, operated on and discharged 2 days ago. Apparently issues with wound dressing changes at long-term for which he was sent here to have this done. Patient with healing wound and secondary healing. No overt evidence of infection at this time and already on Levaquin for next several weeks as is. Wound dressed per notes and patient stable without distress. Discharged back to long-term. I requested case management get involved to make sure long-term is dressing wounds appropriately to avoid him returning with infection or wound injury. Medication Reconcilliation Current Medication List: was personally reviewed by me Blood Pressure Screening Patient's blood pressure: Normal blood pressure Impression Primary Impression: Encounter for postoperative wound care Scribe Attestation The scribe's documentation has been prepared under my direction and personally reviewed by me in its entirety. I confirm that the note above accurately reflects all work, treatment, procedures, and medical decision making performed by me. Departure Information Dispostion Home / Self-Care Patient Instructions My [facility] Additional Instructions It is of vital importance that this wound be cared for and dressed as has been instructed to decrease risk of re-infection. Monitor for signs of infection including increased drainage, rash, swelling, fevers, foul smell, etc. Keep follow up appointments as planned. Continue antibiotics as instructed.
[2017-05-13] MEDS ORDERED: MICO12CR TOP (00:25)
[2017-05-13 03:02] VITALS: BP 116/70; PULSE 79; O2SAT 97
== END 2017-05-13 03:21 | disposition home or self-care (01) ==
LOC: EDBD 23:23 → C.EDB 23:24
DX: Z09 Encounter for follow-up examination after completed treatment for conditions other than malignant neoplasm (principal); Q05.9 Spina bifida, unspecified; Z86.19 Personal history of other infectious and parasitic diseases; Z89.512 Acquired absence of left leg below knee; Z89.511 Acquired absence of right leg below knee; Z79.899 Other long term (current) drug therapy; Z91.040 Latex allergy status